=== PATIENT | female | born 1955 | race Caucasian/White ===

== ENCOUNTER → 2016-10-01 | Outpatient (CLI) | payer BC ==
--- NOTE | 2016-10-01 17:20 | CR ---
EXAMINATION: Lumbar spine HISTORY: Low back pain COMPARISON: None TECHNIQUE: AP, lateral, flexion and extension images FINDINGS: The lumbar spinal alignment appears grossly unremarkable. Mild disc space narrowing is not ed at L4-L5. Bone mineralization is normal. Marginal osteophytes are noted. The SI joints are symmet maria guadalupe. No fracture or acute osseous abdomen body. Position and alignment appear grossly unchanged with flexion and extension. IMPRESSION: Moderate degenerative changes noted within the lumbar spine without acute findings.
== END ==
LOC: MW.CHPM 14:29
PROVIDERS: ATTEND Anesthesiology
DX: M54.5 Low back pain (principal)
CPT/HCPCS: 72110; 72110-26

== ENCOUNTER → 2016-10-14 | Outpatient (CLI) | payer BC ==
--- NOTE | 2016-10-20 10:27 | US ---
EXAMINATION: NASRA HISTORY: Atherosclerotic heart disease COMPARISON: None TECHNIQUE: Pressures obtained in the upper and lower extremities bilaterally. FINDINGS/IMPRESSION: The left NASRA is 0.77. The right NASRA is 0.74.
== END ==
LOC: MW.US 12:42
PROVIDERS: ATTEND Internal Medicine
DX: I25.10 Atherosclerotic heart disease of native coronary artery without angina pectoris (principal)
CPT/HCPCS: 93922; 93922-26

== ENCOUNTER → 2016-11-05 | Outpatient (CLI) | payer BC ==
--- NOTE | 2016-11-06 13:04 | ECHO ---
EXAM DATE: 11/05/16 PATIENT'S AGE: 61 The echocardiogram report can be seen in this patient's EMR (Electronic Medical Record) in the Reports section. CHEN
== END ==
LOC: MW.US 12:48
PROVIDERS: ATTEND Internal Medicine
DX: I25.10 Atherosclerotic heart disease of native coronary artery without angina pectoris (principal)
CPT/HCPCS: 93306

== ENCOUNTER → 2016-11-10 | Outpatient (CLI) | payer BC ==
--- NOTE | 2016-11-10 07:25 | PCM.PRNOTE ---
- Free Text/Narrative Note: Lexiscan Indication chest pain CAD Patient was supervised today during infusion portion of the stress test. The patient received Regadenoson 0.4 mg IV and nuclear agent using standard protocol. Sestamibi Tm99 25 Mci was gievn afterwards Baseline blood pressure is 105/71 with a heart rate 58 EKG sinus rhythm significant q wave II III aVF without ST abnormalities Vital signs at injection: Peak blood pressure 138/68 with a heart rate of 74 Vital signs at 4 minutes post injection: Peak blood pressure 130/63 with a heart rate of 71 EKG sinus rhythm without further ST changes Patient complains of chest pain nausea spontaneously resolved Adverse effects from Génesis scan none Test done due to end of protocol Impression 1. electrocardiographically nondiagnostic for ischemia due to chemical protocol 2. nuclear imaging pending
--- NOTE | 2016-11-10 11:32 | NM ---
EXAMINATION: Nuclear medicine myocardial perfusion study HISTORY: Heart disease. PROCEDURE: Following intravenous administration of 0.4 mg of Lexiscan and 26.8 mCi of technetium 99m sestamib i, stress and rest SPECT images including gating imaging was performed. FINDINGS: Stress and rest myocardial SPECT images demonstrates mildly decreased uptake along the inferior wall . Review of gated images demonstrates normal wall motion, contractility and wall thickening. The left ventricular ejection fraction is 48 %. The left ventricular chamber size is normal. IMPRESSION: 1. Decreased uptake along the inferior wall to the apex. Correlate with rest imaging. 2. Normal ventricular chamber size and function with ejection fraction of 48 %.
== END ==
LOC: MW.NM 06:14
PROVIDERS: ATTEND Internal Medicine
DX: I25.10 Atherosclerotic heart disease of native coronary artery without angina pectoris (principal)
CPT/HCPCS: 78451; 93017; A9500; J2785

== ENCOUNTER 2016-11-19 11:47 | Emergency (ER) | payer BC ==
[2016-11-19 13:03] LABS: CHLORIDE,CL 99 mmol/L (98-110); SODIUM,NA 135 mmol/L (136-146)
--- NOTE | 2016-11-19 13:23 | EDM.PDOC ---
ED HPI GENERAL MEDICAL PROBLEM - General Chief Complaint: Fever Stated Complaint: FEVER OF 110 Time Seen by Provider: 11/19/16 12:21 Source of Information: Reports: Patient History Limitations: Reports: No Limitations - History of Present Illness INITIAL COMMENTS - FREE TEXT/NARRATIVE: History of present illness: [61-year-old female comes in complaining of a high temperature, exam pains, and excruciating abdominal pressure and pain that is radiating around her back. Patient indicated that her temperature at home was 110, but it was 37.3 upon arrival. Patient denies taking any ] Review of systems: As per history of present illness and below otherwise all systems reviewed and negative. Past medical history: As per history of present illness and as reviewed below otherwise noncontributory. Surgical history: As per history of present illness and as reviewed below otherwise noncontributory. Social history: No reported history of drug or alcohol abuse. Family history: As per history of present illness and as reviewed below otherwise noncontributory. Physical exam: HEENT: Atraumatic, normocephalic, pupils reactive, negative for conjunctival pallor or scleral icterus, mucous membranes moist, throat clear, neck supple, nontender, trachea midline. Lungs: Clear to auscultation, breath sounds equal bilaterally, chest nontender. Heart: S1S2, regular, negative for clicks, rubs, or JVD. Abdomen: Soft, nondistended, nontender. Negative for masses or hepatosplenomegaly. Negative for costovertebral tenderness. Pelvis: Stable nontender. Genitourinary: Deferred. Rectal: Deferred. Extremities: Atraumatic, negative for cords or calf pain. Neurovascular unremarkable. Neuro: Awake, alert, oriented. Cranial nerves II through XII unremarkable. Cerebellum unremarkable. Motor and sensory unremarkable throughout. Exam nonfocal. Diagnostics: [CBC, CMP, UA, urine hCG, CT of abdomen with contrast] Therapeutics: [IV fluid, Toradol, Zofran] Impression: [Viral] Plan: [otc meds time off work] Definitive disposition and diagnosis as appropriate pending reevaluation and review of above. Generalized Body Aches Pain Score (Numeric/FACES): 7 - Related Data Allergies Allergy/AdvReac Type Severity Reaction Status Date / Time levofloxacin [From Levaquin] Allergy Mild Rash Verified 11/19/16 11:55 Latex, Natural Rubber Allergy Rash Verified 11/19/16 11:55 penicillin Allergy Airway Verified 11/19/16 11:55 Tightness Home Meds: Home Meds Aspirin [Halfprin] 81 mg PO BEDTIME 01/14/15 [History] Metoprolol Tartrate [Lopressor] 12.5 mg PO Q12HR 01/14/15 [History] Prasugrel [Effient] 10 mg PO DAILY 01/14/15 [History] Rosuvastatin [Crestor] 40 mg PO BEDTIME 01/14/15 [History] Nitroglycerin 0.4 mg PO ASDIRECTED PRN 03/24/15 [History] Budesonide/Formoterol [Symbicort 160-4.5 MCG] 1 puff INH BID 07/10/15 [History] [place]-3/DHA/Epa/Fish Oil [Fish Oil 1,000 mg Softgel] 2,000 mg PO DAILY 07/24/16 [History] Albuterol/Ipratropium [DuoNeb 3.0-0.5 MG/3 ML] 3 ml NEB Q6HR PRN 30 Days [Rx] Fluticasone Propionate [Flonase] 1 gm NASBOTH BID #1 bottle 07/28/16 [Rx] Sodium Chloride 0.9% 3 ml INH Q6H PRN 30 Days 07/28/16 [Rx] Meloxicam 7.5 mg PO BID #30 tablet 11/19/16 [Rx] Promethazine HCl/Codeine [Prometh-Codein 6.25-10 mg/5 ml] 5 ml PO PRN 11/19/16 [ History] Past Medical History - Past Health History Medical/Surgical History: Denies Medical/Surgical History HEENT History: Reports: Impaired Vision Cardiovascular History: Reports: CAD, Heart Murmur, High Cholesterol, Hypertension, Stents Other Cardiovascular History: hx of MRSA Respiratory History: Reports: Bronchitis, Recurrent, COPD Gastrointestinal History: Reports: Diverticulosis, GERD, Other (See Below) Other Gastrointestinal History: Diverticulitis Genitourinary History: Reports: Urinary Incontinence Other Genitourinary History: bladder sling 2009 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: Musculoskeletal History: Reports: None Other Musculoskeletal History: 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, fracture left ankle, fractured left middle finger Neurological History: Reports: None Other Neuro History: AVM right temporal Psychiatric History: Reports: Anxiety Endocrine/Metabolic History: Reports: Other (See Below) Other Endocrine/Metabolic History: borderline diabetic Hematologic History: Reports: Anemia, Iron Deficiency Immunologic History: Reports: None Oncologic (Cancer) History: Reports: None Dermatologic History: Reports: None - Infectious Disease History Infectious Disease History: Reports: None - Past Surgical History Head Surgeries/Procedures: Reports: None HEENT Surgical History: Reports: None Cardiovascular Surgical History: Reports: Carotid Endarterectomy Respiratory Surgical History: Reports: None GI Surgical History: Reports: Appendectomy, Colostomy Female Surgical History: Reports: None Endocrine Surgical History: Reports: None Neurological Surgical History: Reports: None Musculoskeletal Surgical History: Reports: None Dermatological Surgical History: Reports: Plastic Surgical Reconstruction/Repair Social & Family History - Family History Family Medical History: Noncontributory HEENT: Reports: Glaucoma : Reports: Other (See Below) Other Family History: prostate cancer Neurological: Reports: CVA Endocrine/Metabolic: Reports: Diabetes, Type I Oncologic: Reports: Prostate, Skin - Tobacco Use Smoking Status *Q: Unknown Ever Smoked Years of Tobacco use: 40 Packs/Tins Daily: 0.5 Used Tobacco, but Quit: Yes Month Tobacco Last Used: 2012 Second Hand Smoke Exposure: No - Caffeine Use Caffeine Use: Reports: None Caffeine Use Comment: 1/2cup/day - Alcohol Use Days Per Week of Alcohol Use: 0 Number of Drinks Per Day: 2 Total Drinks Per Week: 0 - Recreational Drug Use Recreational Drug Use: No ED ROS GENERAL - Review of Systems Review Of Systems: See Below (History of present illness) ED EXAM, GENERAL - Physical Exam Exam: See Below (See history of present illness) Course - Vital Signs Last Recorded V/S: Last Vital Signs Temp 37.3 C 11/19/16 11:56 Pulse 78 11/19/16 11:56 Resp 16 11/19/16 11:56 BP 138/76 11/19/16 11:56 Pulse Ox 93 L 11/19/16 11:56 - Orders/Labs/Meds Labs: Laboratory Tests 11/19/16 11/19/16 11/19/16 Range/Units 12:00 12:19 12:19 WBC 5.75 (4.0-11.0) K/uL RBC 5.48 (4.30-5.90) M/uL Hgb 16.7 H (12.0-16.0) g/dL Hct 50.4 H (36.0-46.0) % MCV 92.0 (80.0-98.0) fL MCH 30.5 (27.0-32.0) pg MCHC 33.1 (31.0-37.0) g/dL RDW Std Deviation 47.0 (28.0-62.0) fl RDW Coeff of [place] 14 (11.0-15.0) % Plt Count 160 (150-400) K/uL MPV 10.50 (7.40-12.00) fL Add Manual Diff YES Neutrophils % (Manual) 65 (48.0-80.0) % Band Neutrophils % 1 % Lymphocytes % (Manual) 26 (16.0-40.0) % Monocytes % (Manual) 8 (0.0-15.0) % Nucleated RBC % 0.0 /100WBC Absolute Seg Neuts 3.7 Band Neutrophils # 0.1 Lymphocytes # (Manual) 1.5 Monocytes # (Manual) 0.5 Nucleated RBCs # 0 K/uL Sodium 135 L (136-146) mmol/L Potassium 4.2 (3.5-5.1) mmol/L Chloride 99 (98-110) mmol/L Carbon Dioxide 26 (21-31) mmol/L BUN 8 (6.0-23.0) mg/dL Creatinine 0.8 (0.6-1.5) mg/dL Est Cr Clr Drug Dosing 61.09 mL/min Estimated GFR (MDRD) > 60.0 ml/min Glucose 101 (60-110) mg/dL Calcium 9.6 (8.8-10.8) mg/dL Total Bilirubin 0.5 (0.1-1.5) mg/dL AST 45 H (5-40) IU/L ALT 40 (8-54) IU/L Alkaline Phosphatase 96 (40-150) Total Protein 7.6 (6.0-8.0) g/dL Albumin 4.6 (3.4-4.8) g/dL Globulin 3.0 (2.0-3.5) g/dL Albumin/Globulin Ratio 1.5 (1.3-2.8) Urine Color YELLOW Urine Appearance CLEAR Urine pH 6.0 (5.0-8.0) Ur Specific R[place] <= 1.005 (1.001-1.035) Urine Protein NEGATIVE (NEGATIVE) mg/dL Urine Glucose (UA) NEGATIVE (NEGATIVE) mg/dL Urine Ketones NEGATIVE (NEGATIVE) mg/dL Urine Occult Blood NEGATIVE (NEGATIVE) Urine Nitrite NEGATIVE (NEGATIVE) Urine Bilirubin NEGATIVE (NEGATIVE) Urine Urobilinogen 0.2 (<2.0) EU/dL Ur Leukocyte Esterase NEGATIVE (NEGATIVE) Urine RBC 0-1 (0-2/HPF) Urine WBC 0-1 (0-5/HPF) Ur Epithelial Cells FEW (NONE-FEW) Urine Bacteria 1+ H (NEGATIVE) Meds: Medications Discontinued Medications Generic Name Dose Route Start Last Admin Trade Name Freq PRN Reason Stop Dose Admin Sodium Chloride 1,000 mls @ 999 mls/hr 11/19/16 13:40 11/19/16 13:48 Normal Saline IV 11/19/16 14:40 999 mls/hr STAT ONE Administration Iopamidol 100 ml 11/19/16 13:59 11/19/16 14:01 Isovue Multipack-370 (76%) IVPUSH 11/19/16 14:00 100 ml ONETIME STA Administration Ondansetron HCl 4 mg 11/19/16 13:40 11/19/16 13:48 Zofran IVPUSH 11/19/16 13:41 4 mg ONETIME ONE Administration Ondansetron HCl Confirm 11/19/16 13:43 11/19/16 13:49 Zofran Administered 11/19/16 13:44 Not Given Dose 4 mg .ROUTE .STK-MED ONE Departure - Departure Time of Disposition: 15:11 Disposition: Home, Self-Care 01 Condition: good Clinical Impression: Viral syndrome - Discharge Information Prescriptions: Meloxicam 7.5 mg PO BID #30 tablet Forms: ED Department Discharge Additional Instructions: The following information is given to patients seen in the emergency department who are being discharged to home. This information is to outline your options for follow-up care. We provide all patients seen in our emergency department with a follow-up referral. The need for follow-up, as well as the timing and circumstances, are variable depending upon the specifics of your emergency department visit. If you don't have a primary care physician on staff, we will provide you with a referral. We always advise you to contact your personal physician following an emergency department visit to inform them of the circumstance of the visit and for follow-up with them and/or the need for any referrals to a consulting specialist. The emergency department will also refer you to a specialist when appropriate. This referral assures that you have the opportunity for follow-up care with a specialist. All of these measure are taken in an effort to provide you with optimal care, which includes your follow-up. Under all circumstances we always encourage you to contact your private physician who remains a resource for coordinating your care. When calling for follow-up care, please make the office aware that this follow-up is from your recent emergency room visit. If for any reason you are refused follow-up, please contact the [facility] Emergency Department at and asked to speak to the emergency department charge nurse. Medication as directed Take time off work as directed Followup with primary care in one to 2 days Return to ED as needed as discussed
[2016-11-19] MEDS ORDERED: Sodium Chloride 0.9% 1,000 ML IV ONE (13:40)
[2016-11-19] MEDS ORDERED: Ondansetron 4 MG/2 ML SDV IVPUSH ONE (13:40)
[2016-11-19] MEDS ORDERED: Ondansetron 4 MG/2 ML SDV ONE (13:43)
[2016-11-19] MEDS ORDERED: Iopamidol 755 MG/ML 500 ML Multipack Bottle IVPUSH STA (13:59)
--- NOTE | 2016-11-19 14:50 | CT ---
CT of the abdomen and pelvis with contrast. HISTORY: Pain TECHNIQUE: Axial CT images were obtained of the abdomen and pelvis following administration of 100 m L of Isovue-370 in the right antecubital fossa without complication. Coronal and sagittal reconstruc tions obtained. FINDINGS: The lung bases are clear, no pleural effusion. Mild dependent atelectasis. There is a tiny cyst near the dome of the liver. The gallbladder, adrenal glands, and pancreas appea r grossly unremarkable. Splenic granulomata are noted. No bulky retroperitoneal lymphadenopathy or a bdominal ascites. The kidneys enhance and function symmetrically without evidence of obstructive uropathy. Mild vascul ar calcifications are present. The visualized large and small bowel are normal in caliber without evidence of obstruction. There is a left abdominal colostomy noted. The rectal pouch is unremarkable. There is a large broad-based ve ntral abdominal hernia versus diastases. There were several small areas of fat necrosis near the col ostomy site and anterior to the proximal jejunum. The urinary bladder is normal. No bulky retroperit obrien lymphadenopathy or abdominal ascites. No suspicious osseous abnormalities identified. IMPRESSION: 1. No acute findings demonstrated within the abdomen or pelvis. 2. Postsurgical changes noted with a left abdominal colostomy. 3. Broad-based ventral abdominal hernia containing bowel, however likely representing diastases of t he abdominal musculature. 4. Moderate vascular calcifications.
[2016-11-19 15:19] VITALS: BP 125/58
== END 2016-11-19 15:18 | disposition home or self-care (01) ==
LOC: MW.ED 11:47
DX: B34.9 Viral infection, unspecified (principal); I10 Essential (primary) hypertension; I25.10 Atherosclerotic heart disease of native coronary artery without angina pectoris; E78.00 Pure hypercholesterolemia, unspecified; J44.9 Chronic obstructive pulmonary disease, unspecified; K21.9 Gastro-esophageal reflux disease without esophagitis; F41.9 Anxiety disorder, unspecified; Z79.82 Long term (current) use of aspirin; Z79.899 Other long term (current) drug therapy; Z88.0 Allergy status to penicillin; Z88.1 Allergy status to other antibiotic agents; Z91.040 Latex allergy status; Z90.49 Acquired absence of other specified parts of digestive tract; Z98.890 Other specified postprocedural states
CPT/HCPCS: 36415; 74177; 80053; 81001; 85025; 96361; 96374; 99284; J2405; J7040; Q9967

== ENCOUNTER 2016-12-01 15:24 | Inpatient (IN) | payer BC ==
[2016-12-01] MEDS ORDERED: Sodium Chloride 0.9% 1,000 ML IV ONE ×2 (15:55→17:29)
[2016-12-01] MEDS ORDERED: Ondansetron 4 MG/2 ML SDV IVPUSH ONE (15:55)
--- NOTE | 2016-12-01 16:40 | EDM.PDOC ---
<Sonia East - Last Filed: 12/01/16 18:21> ED HPI GENERAL MEDICAL PROBLEM - General Chief Complaint: Abdominal Pain Stated Complaint: ABDOMINAL PAIN Time Seen by Provider: 12/01/16 15:43 Source of Information: Reports: Patient History Limitations: Reports: No Limitations - History of Present Illness INITIAL COMMENTS - FREE TEXT/NARRATIVE: History of present illness: []Patient has a history of diverticulitis and has a functioning colostomy. She started developing abdominal pain last night with fevers and nausea and vomiting. She has similar episode 2 weeks ago where she was worked up in the ED but she states this does not feel the same. Her pain today is a pressure squeezing in her lower abdomen that is nonradiating. She states when she stands up she feels like her belly is very bloated she lays down it feels crampy. It does not radiate to her back and she states she has been urinating more than normal but does not have pain with urination also admits to drinking a lot more than normal. Review of systems: As per history of present illness and below otherwise all systems reviewed and negative. Past medical history: As per history of present illness and as reviewed below otherwise noncontributory. Surgical history: As per history of present illness and as reviewed below otherwise noncontributory. Social history: No reported history of drug or alcohol abuse. Family history: As per history of present illness and as reviewed below otherwise noncontributory. Physical exam: General: Well developed, well nourished in NAD HEENT: Atraumatic, normocephalic, pupils reactive, negative for conjunctival pallor or scleral icterus, mucous membranes moist, throat clear, neck supple, nontender, trachea midline. Lungs: Clear to auscultation, breath sounds equal bilaterally, chest nontender. Heart: S1S2, regular, negative for clicks, rubs, or JVD. Abdomen: Soft, nondistended, tender in lower abdomen without rebound or guarding. Colostomy bag with air and small amount of stool. present Negative for masses or hepatosplenomegaly. Negative for costovertebral tenderness. Pelvis: Stable nontender. Genitourinary: Deferred. Rectal: Deferred. Extremities: Atraumatic, negative for cords or calf pain. Neurovascular unremarkable. Neuro: Awake, alert, oriented. Cranial nerves II through XII unremarkable. Cerebellum unremarkable. Motor and sensory unremarkable throughout. Exam nonfocal. Diagnostics: []CBC chemistry UA CT abdomen repeated due to the elevated WBC count and report of different type of pain. CT results pending and will be checked by Jones Rose. Therapeutics: []Patient was hydrated and given morphine which she had a reaction of hives on her arms above the IV. She was then given Toradol. Impression: []Abdominal pain Plan: []Disposition per Jones Rose. Definitive disposition and diagnosis as appropriate pending reevaluation and review of above. abdomen Pain Score (Numeric/FACES): 9 - Related Data Allergies Allergy/AdvReac Type Severity Reaction Status Date / Time levofloxacin [From Levaquin] Allergy Mild Rash Verified 12/01/16 15:48 Latex, Natural Rubber Allergy Rash Verified 12/01/16 15:48 penicillin Allergy Airway Verified 12/01/16 15:48 Tightness Home Meds: Home Meds Aspirin [Halfprin] 81 mg PO BEDTIME 01/14/15 [History] Metoprolol Tartrate [Lopressor] 12.5 mg PO Q12HR 01/14/15 [History] Prasugrel [Effient] 10 mg PO DAILY 01/14/15 [History] Rosuvastatin [Crestor] 40 mg PO BEDTIME 01/14/15 [History] Nitroglycerin 0.4 mg PO ASDIRECTED PRN 03/24/15 [History] Budesonide/Formoterol [Symbicort 160-4.5 MCG] 1 puff INH BID 07/10/15 [History] [place]-3/DHA/Epa/Fish Oil [Fish Oil 1,000 mg Softgel] 2,000 mg PO DAILY 07/24/16 [History] Albuterol/Ipratropium [DuoNeb 3.0-0.5 MG/3 ML] 3 ml NEB Q6HR PRN 30 Days [Rx] Fluticasone Propionate [Flonase] 1 gm NASBOTH BID #1 bottle 07/28/16 [Rx] Sodium Chloride 0.9% 3 ml INH Q6H PRN 30 Days 07/28/16 [Rx] Meloxicam 7.5 mg PO BID #30 tablet 11/19/16 [Rx] Promethazine HCl/Codeine [Prometh-Codein 6.25-10 mg/5 ml] 5 ml PO PRN 11/19/16 [ History] Past Medical History - Past Health History Medical/Surgical History: Denies Medical/Surgical History HEENT History: Reports: Impaired Vision Cardiovascular History: Reports: CAD, Heart Murmur, High Cholesterol, Hypertension, Stents Other Cardiovascular History: hx of MRSA Respiratory History: Reports: Bronchitis, Recurrent, COPD Gastrointestinal History: Reports: Diverticulosis, GERD, Other (See Below) Other Gastrointestinal History: Diverticulitis Genitourinary History: Reports: Urinary Incontinence Other Genitourinary History: bladder sling 2009 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: Musculoskeletal History: Reports: None Other Musculoskeletal History: 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, fracture left ankle, fractured left middle finger Neurological History: Reports: None Other Neuro History: AVM right temporal Psychiatric History: Reports: Anxiety Endocrine/Metabolic History: Reports: Other (See Below) Other Endocrine/Metabolic History: borderline diabetic Hematologic History: Reports: Anemia, Iron Deficiency Immunologic History: Reports: None Oncologic (Cancer) History: Reports: None Dermatologic History: Reports: None - Infectious Disease History Infectious Disease History: Reports: Chicken Pox, Measles, MRSA - Past Surgical History Head Surgeries/Procedures: Reports: None HEENT Surgical History: Reports: None Cardiovascular Surgical History: Reports: Carotid Endarterectomy Respiratory Surgical History: Reports: None GI Surgical History: Reports: Appendectomy, Colostomy Female Surgical History: Reports: None Endocrine Surgical History: Reports: None Neurological Surgical History: Reports: None Musculoskeletal Surgical History: Reports: None Dermatological Surgical History: Reports: Plastic Surgical Reconstruction/Repair Social & Family History - Family History Family Medical History: Noncontributory HEENT: Reports: Glaucoma : Reports: Other (See Below) Other Family History: prostate cancer Neurological: Reports: CVA Endocrine/Metabolic: Reports: Diabetes, Type I Oncologic: Reports: Prostate, Skin - Tobacco Use Smoking Status *Q: Never Smoker Years of Tobacco use: 40 Packs/Tins Daily: 0.5 Used Tobacco, but Quit: Yes Month Tobacco Last Used: 2012 Second Hand Smoke Exposure: No - Caffeine Use Caffeine Use: Reports: Coffee Caffeine Use Comment: 1 cup daily - Alcohol Use Days Per Week of Alcohol Use: 0 Number of Drinks Per Day: 2 Total Drinks Per Week: 0 - Recreational Drug Use Recreational Drug Use: No ED ROS GENERAL - Review of Systems Review Of Systems: See Below (See history of present illness) ED EXAM, GI/ABD - Physical Exam Exam: See Below (See history of present illness) Course - Vital Signs Last Recorded V/S: Last Vital Signs Temp 36.7 C 12/01/16 19:30 Pulse 78 12/01/16 19:30 Resp 18 12/01/16 19:30 BP 105/56 L 12/01/16 19:30 Pulse Ox 92 L 12/01/16 19:30 - Orders/Labs/Meds Orders: Active Orders 24 hr Category Date Time Status Patient Status [ADT] Stat ADT 12/01/16 19:55 Ordered Abdomen Pelvis w Cont [CT] Stat Exams 12/01/16 16:57 Taken CULTURE BLOOD [BC] Stat Lab 12/01/16 19:53 Ordered CULTURE BLOOD [BC] Stat Lab 12/01/16 19:53 Ordered Azithromycin [Zithromax] 1,000 mg Med 12/01/16 19:53 Active Sodium Chloride 0.9% [Normal Saline] 500 ml IV ONETIME cefTRIAXone [Rocephin in Dextrose,Iso-Osm 1 GM/50 ML] 1 Med 12/01/16 19:53 Active gm Premix Bag 1 bag IV ONETIME Blood Culture x2 Reflex Set [OM.PC] Stat Oth 12/01/16 19:53 Ordered Saline Lock Insert [OM.PC] Stat Oth 12/01/16 15:55 Ordered Medication Orders Azithromycin 1,000 mg/ Sodium (Chloride) 500 mls @ 250 mls/hr IV ONETIME ONE Stop: 12/01/16 21:52 Ceftriaxone Sodium/Dextrose 1 (gm/ Premix) 50 mls @ 100 mls/hr IV ONETIME ONE Stop: 12/01/16 20:22 Labs: Laboratory Tests 12/01/16 12/01/16 12/01/16 Range/Units 16:16 16:16 16:20 WBC 14.55 H (4.0-11.0) K/uL RBC 5.09 (4.30-5.90) M/uL Hgb 16.0 (12.0-16.0) g/dL Hct 46.7 H (36.0-46.0) % MCV 91.7 (80.0-98.0) fL MCH 31.4 (27.0-32.0) pg MCHC 34.3 (31.0-37.0) g/dL RDW Std Deviation 45.5 (28.0-62.0) fl RDW Coeff of [place] 14 (11.0-15.0) % Plt Count 297 (150-400) K/uL MPV 9.80 (7.40-12.00) fL Add Manual Diff YES Neutrophils % (Manual) 68 (48.0-80.0) % Band Neutrophils % 11 % Lymphocytes % (Manual) 17 (16.0-40.0) % Monocytes % (Manual) 4 (0.0-15.0) % Nucleated RBC % 0.0 /100WBC Absolute Seg Neuts 9.9 Band Neutrophils # 1.6 Lymphocytes # (Manual) 2.5 Monocytes # (Manual) 0.6 Nucleated RBCs # 0 K/uL Sodium 135 L (136-146) mmol/L Potassium 3.8 (3.5-5.1) mmol/L Chloride 101 (98-110) mmol/L Carbon Dioxide 23 (21-31) mmol/L BUN 9 (6.0-23.0) mg/dL Creatinine 0.7 (0.6-1.5) mg/dL Est Cr Clr Drug Dosing 69.81 mL/min Estimated GFR (MDRD) > 60.0 ml/min Glucose 146 H (60-110) mg/dL Calcium 9.4 (8.8-10.8) mg/dL Total Bilirubin 0.7 (0.1-1.5) mg/dL AST 15 (5-40) IU/L ALT 22 (8-54) IU/L Alkaline Phosphatase 76 (40-150) Total Protein 7.3 (6.0-8.0) g/dL Albumin 3.9 (3.4-4.8) g/dL Globulin 3.4 (2.0-3.5) g/dL Albumin/Globulin Ratio 1.2 L (1.3-2.8) Lipase 29 (7-80) U/L Urine Color YELLOW Urine Appearance CLEAR Urine pH 5.5 (5.0-8.0) Ur Specific [place] 1.015 (1.001-1.035) Urine Protein NEGATIVE (NEGATIVE) mg/dL Urine Glucose (UA) NEGATIVE (NEGATIVE) mg/dL Urine Ketones NEGATIVE (NEGATIVE) mg/dL Urine Occult Blood NEGATIVE (NEGATIVE) Urine Nitrite NEGATIVE (NEGATIVE) Urine Bilirubin NEGATIVE (NEGATIVE) Urine Urobilinogen 0.2 (<2.0) EU/dL Ur Leukocyte Esterase NEGATIVE (NEGATIVE) Urine RBC 0-1 (0-2/HPF) Urine WBC 0-3 (0-5/HPF) Ur Epithelial Cells FEW (NONE-FEW) Urine Bacteria FEW (NEGATIVE) Urine Mucus LIGHT (NONE-MOD) Meds: Medications Generic Name Dose Route Start Last Admin Trade Name Freq PRN Reason Stop Dose Admin Azithromycin 1,000 mg/ Sodium 500 mls @ 250 mls/hr 12/01/16 19:53 Chloride IV 12/01/16 21:52 ONETIME ONE Ceftriaxone Sodium/Dextrose 1 50 mls @ 100 mls/hr 12/01/16 19:53 gm/ Premix IV 12/01/16 20:22 ONETIME ONE Discontinued Medications Generic Name Dose Route Start Last Admin Trade Name Freq PRN Reason Stop Dose Admin Diphenhydramine HCl Confirm 12/01/16 17:27 12/01/16 18:33 Benadryl Administered 12/01/16 17:28 Not Given Dose 50 mg .ROUTE .STK-MED ONE Diphenhydramine HCl 25 mg 12/01/16 17:29 12/01/16 17:29 Benadryl IVPUSH 12/01/16 17:30 25 mg ONETIME ONE Administration Sodium Chloride 1,000 mls @ 999 mls/hr 12/01/16 15:55 12/01/16 16:18 Normal Saline IV 12/01/16 16:55 999 mls/hr .Bolus ONE Administration Sodium Chloride 1,000 mls @ 999 mls/hr 12/01/16 17:29 12/01/16 17:40 Normal Saline IV 12/01/16 18:29 999 mls/hr .Bolus ONE Administration Iopamidol 100 ml 12/01/16 17:06 Isovue Multipack-370 (76%) IVPUSH 12/01/16 17:07 ONETIME STA Ketorolac Tromethamine 30 mg 12/01/16 18:20 12/01/16 18:31 Toradol IVPUSH 12/01/16 18:21 30 mg ONETIME ONE Administration Morphine Sulfate 4 mg 12/01/16 16:41 12/01/16 17:06 Morphine IVPUSH 12/01/16 16:42 Not Given ONETIME ONE Morphine Sulfate 4 mg 12/01/16 17:00 12/01/16 17:07 Morphine IVPUSH 12/01/16 17:01 4 mg ONETIME ONE Administration Ondansetron HCl 4 mg 12/01/16 15:55 12/01/16 16:17 Zofran IVPUSH 12/01/16 15:56 4 mg ONETIME ONE Administration Departure - Departure Time of Disposition: 18:42 Disposition: Admitted As Inpatient 66 Condition: good Clinical Impression: Leukocytosis, unspecified Abdominal pain Qualifiers: Abdominal location: periumbilical Qualified Code(s): R10.33 - Periumbilical pain - Discharge Information Referrals: PCP,None [Primary Care Provider] - Forms: ED Department Discharge - My Orders Last 24 Hours: My Active Orders 12/01/16 19:53 CULTURE BLOOD [BC] Stat CULTURE BLOOD [BC] Stat Azithromycin [Zithromax] 1,000 mg Sodium Chloride 0.9% [Normal Saline] 500 ml IV ONETIME cefTRIAXone [Rocephin in Dextrose,Iso-Osm 1 GM/50 ML] 1 gm Premix Bag 1 bag IV ONETIME Blood Culture x2 Reflex Set [OM.PC] Stat 12/01/16 19:55 Patient Status [ADT] Stat - Assessment/Plan Last 24 Hours: My Active Orders 12/01/16 19:53 CULTURE BLOOD [BC] Stat CULTURE BLOOD [BC] Stat Azithromycin [Zithromax] 1,000 mg Sodium Chloride 0.9% [Normal Saline] 500 ml IV ONETIME cefTRIAXone [Rocephin in Dextrose,Iso-Osm 1 GM/50 ML] 1 gm Premix Bag 1 bag IV ONETIME Blood Culture x2 Reflex Set [OM.PC] Stat 12/01/16 19:55 Patient Status [ADT] Stat <Jones Rose - Last Filed: 12/01/16 20:00> ED HPI GENERAL MEDICAL PROBLEM - History of Present Illness INITIAL COMMENTS - FREE TEXT/NARRATIVE: Patient CT indicating some possible right lower lobe pneumonia. Patient also has established leukocytosis. Spoke with Dr. Gee Gallardo and decision was made to admit patient to inpatient status for treatment of leukocytosis, dehydration , and possible evolving pneumonia. abdomen Pain Score (Numeric/FACES): 9 RLQ Pain Score (Numeric/FACES): 3
[2016-12-01] MEDS ORDERED: Morphine 2 MG/ML Syringe IVPUSH ONE (16:41)
[2016-12-01 17:00] LABS: CHLORIDE,CL 101 mmol/L (98-110); SODIUM,NA 135 mmol/L (136-146)
[2016-12-01] MEDS ORDERED: Morphine 4 MG/ML Syringe IVPUSH ONE (17:00)
[2016-12-01] MEDS ORDERED: Iopamidol 755 MG/ML 500 ML Multipack Bottle IVPUSH STA (17:06)
[2016-12-01] MEDS ORDERED: diphenhydrAMINE 50 MG/ML SDV ONE (17:27)
[2016-12-01] MEDS ORDERED: diphenhydrAMINE 50 MG/ML SDV IVPUSH ONE (17:29)
[2016-12-01] MEDS ORDERED: Ketorolac 30 MG/ML SDV IVPUSH ONE (18:20)
[2016-12-01] MEDS ORDERED: cefTRIAXone 1 GM in Premix Bag 1 BAG IV ONE (19:53)
[2016-12-01] MEDS ORDERED: Azithromycin 1,000 MG in Sodium Chloride 0.9% 500 ML IV ONE (19:53)
[2016-12-01] MEDS ORDERED: Albuterol/Ipratropium 3.0-0.5 MG/3 ML Neb Soln NEB PRN ×2 (21:43→22:54)
[2016-12-01] MEDS ORDERED: Acetaminophen 325 MG Tab PO PRN (21:43)
[2016-12-01] MEDS ORDERED: Azithromycin 500 MG in Sodium Chloride 0.9% 250 ML IV SCH (22:00)
[2016-12-01] MEDS: Sodium Chloride 0.9% 1,000 ML IV SCH (22:01)
[2016-12-01] MEDS: Azithromycin 500 MG in Sodium Chloride 0.9% 250 ML IV SCH (22:33)
[2016-12-01] MEDS ORDERED: Sodium Chloride 0.9% Inhalation Soln 3 ML Neb INH PRN (22:54)
--- NOTE | 2016-12-01 23:00 | PCM.HP ---
H&P History of Present Illness - History of Present Illness Initial Comments - Free Text/Narative: 61 yo female with pmh of CAD, COPD and diverticulosis s/p bowel resection with colostomy. Over the past two weeks she has not been feeling well. She reports sinus and chest congestion, fevers and chills. She report lower abdominal pain and nausea but denies any diarrhea. She was seen in clinic and prescribed doxycycline and prednisone. She reports to the ED today because symptoms have not been improving. She had a CT scan of abdomen which reported new subtle stranding about the infrarenal abdominal aorta and new subcentimeter nodular opacities at the right lung base. abdomen Pain Score (Numeric/FACES): 9 RLQ Pain Score (Numeric/FACES): 3 - Related Data Allergies/Adverse Reactions: Allergies Allergy/AdvReac Type Severity Reaction Status Date / Time levofloxacin [From Levaquin] Allergy Mild Rash Verified 12/01/16 20:05 Latex, Natural Rubber Allergy Rash Verified 12/01/16 20:05 penicillin Allergy Airway Verified 12/01/16 20:05 Tightness morphin Allergy Severe Hives Uncoded 12/01/16 20:05 Home Medications: Home Meds Aspirin [Halfprin] 81 mg PO BEDTIME 01/14/15 [History] Metoprolol Tartrate [Lopressor] 25 mg PO Q12HR 01/14/15 [History] Prasugrel [Effient] 10 mg PO DAILY 01/14/15 [History] Rosuvastatin [Crestor] 40 mg PO BEDTIME 01/14/15 [History] Nitroglycerin 0.4 mg PO ASDIRECTED PRN 03/24/15 [History] Budesonide/Formoterol [Symbicort 160-4.5 MCG] 2 puff INH BID 07/10/15 [History] [place]-3/DHA/Epa/Fish Oil [Fish Oil 1,000 mg Softgel] 2,000 mg PO BID 07/24/16 [ History] Albuterol/Ipratropium [DuoNeb 3.0-0.5 MG/3 ML] 3 ml NEB Q6HR PRN 30 Days [Rx] Sodium Chloride 0.9% 3 ml INH Q6H PRN 30 Days 07/28/16 [Rx] Fluticasone Propionate [Flonase] 1 gm NASBOTH DAILY 12/01/16 [History] ALPRAZolam [Alprazolam] 0.5 mg PO BEDTIME PRN 12/02/16 [History] Losartan Potassium 25 mg PO DAILY 12/02/16 [History] Tiotropium [place] [Spiriva Respimat] 2.5 mcg IH DAILY 12/02/16 [History] Past Medical History - Past Health History Medical/Surgical History: Denies Medical/Surgical History HEENT History: Reports: Impaired Vision Cardiovascular History: Reports: CAD, Heart Murmur, High Cholesterol, Hypertension, Stents Other Cardiovascular History: hx of MRSA Respiratory History: Reports: Bronchitis, Recurrent, COPD Gastrointestinal History: Reports: Diverticulosis, GERD, Other (See Below) Other Gastrointestinal History: Diverticulitis Genitourinary History: Reports: Urinary Incontinence Other Genitourinary History: 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: Musculoskeletal History: Reports: None Other Musculoskeletal History: 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, fracture left ankle, fractured left middle finger Neurological History: Reports: None Other Neuro History: AVM right temporal Psychiatric History: Reports: Anxiety Endocrine/Metabolic History: Reports: Other (See Below) Other Endocrine/Metabolic History: borderline diabetic Hematologic History: Reports: Anemia, Iron Deficiency Immunologic History: Reports: None Oncologic (Cancer) History: Reports: None Dermatologic History: Reports: None - Infectious Disease History Infectious Disease History: Reports: Chicken Pox, Measles, MRSA - Past Surgical History Head Surgeries/Procedures: Reports: None HEENT Surgical History: Reports: None Cardiovascular Surgical History: Reports: Carotid Endarterectomy Respiratory Surgical History: Reports: None GI Surgical History: Reports: Appendectomy, Colostomy Female Surgical History: Reports: None Endocrine Surgical History: Reports: None Neurological Surgical History: Reports: None Musculoskeletal Surgical History: Reports: None Dermatological Surgical History: Reports: Plastic Surgical Reconstruction/Repair Social & Family History - Family History Family Medical History: Noncontributory HEENT: Reports: Glaucoma : Reports: Other (See Below) Other Family History: prostate cancer Neurological: Reports: CVA Endocrine/Metabolic: Reports: Diabetes, Type I Oncologic: Reports: Prostate, Skin - Tobacco Use Smoking Status *Q: Former Smoker Years of Tobacco use: 40 Packs/Tins Daily: 0.5 Used Tobacco, but Quit: Yes Month Tobacco Last Used: 2012 Second Hand Smoke Exposure: Yes - Caffeine Use Caffeine Use: Reports: Coffee Caffeine Use Comment: 1 cup daily - Alcohol Use Days Per Week of Alcohol Use: 2 Number of Drinks Per Day: 0 Total Drinks Per Week: 0 - Recreational Drug Use Recreational Drug Use: No H&P Review of Systems - Review of Systems: Review Of Systems: ROS reveals no pertinent complaints other than HPI. Exam - Exam Exam: See Below - Vital Signs Vital Signs: Last Vital Signs Temp 36.6 C 12/01/16 21:00 Pulse 71 12/01/16 21:00 Resp 18 12/01/16 21:00 BP 110/56 L 12/01/16 21:00 Pulse Ox 92 L 12/01/16 21:00 Weight: 76 kg - Exam General: Alert, Oriented, 4 HEENT: Mucosa Moist & Sentinel Lungs: Clear to Auscultation, Normal Respiratory Effort. No: Rhonchi, Wheezing Cardiovascular: Regular Rate, Regular Rhythm Abdomen: Soft, Tenderness (suprapubic) Extremities: Normal Inspection Skin: Warm, Dry, Intact - Patient Data Result Diagrams: 12/02/16 04:15 12/02/16 04:15 *Q Meaningful Use (ADM) - VTE *Q VTE Criteria *Q: - Stroke *Q Stroke Criteria *Q: - AMI *Q AMI Criteria *Q: Problem List Initiated/Reviewed/Updated: Yes Orders Last 24hrs: Active Orders 24 hr Category Date Time Status RT Aerosol Therapy [RC] ASDIRECTED Care 12/01/16 21:45 Active Nothing Per Oral Diet [DIET] Diet 12/01/16 Breakfast Active BASIC METABOLIC PANEL,BMP [CHEM] Routine Lab 12/02/16 05:00 Ordered CBC WITH AUTO DIFF [HEME] Routine Lab 12/02/16 05:00 Ordered LACTIC ACID,WHOLE BLOOD [BG] Routine Lab 12/01/16 22:53 Ordered Acetaminophen [Tylenol] Med 12/01/16 21:43 Active 650 mg PO Q4H PRN Albuterol/Ipratropium [DuoNeb 3.0-0.5 MG/3 ML] Med 12/01/16 22:54 Ordered 3 ml NEB Q6HR PRN Albuterol/Ipratropium [DuoNeb 3.0-0.5 MG/3 ML] Med 12/01/16 21:43 Active 3 ml NEB Q6HRRT PRN Aspirin [Halfprin] Med 12/02/16 21:00 Ordered 81 mg PO BEDTIME Azithromycin [Zithromax] 500 mg Med 12/01/16 22:20 Active Sodium Chloride 0.9% [Normal Saline] 250 ml IV Q24H Budesonide/Formoterol Med 12/02/16 09:00 Ordered 1 puff INH DAILY Fluticasone Propionate [Flonase] Med 12/02/16 09:00 Ordered 1 gm NASBOTH DAILY Prasugrel [Effient] Med 12/02/16 09:00 Ordered 10 mg PO DAILY Rosuvastatin [Crestor] Med 12/02/16 21:00 Ordered 40 mg PO BEDTIME Sodium Chloride 0.9% Med 12/01/16 22:54 Ordered 3 ml INH Q6H PRN Sodium Chloride 0.9% [Normal Saline] 1,000 ml Med 12/01/16 21:45 Active IV ASDIRECTED cefTRIAXone [Rocephin in Dextrose,Iso-Osm 1 GM/50 ML] 1 Med 12/02/16 21:00 Active gm Premix Bag 1 bag IV Q24H Medication Orders Acetaminophen (Tylenol) 650 mg PO Q4H PRN PRN Reason: Pain Last Admin: 12/01/16 22:12 Dose: 650 mg Albuterol/Ipratropium (Duoneb 3.0-0.5 Mg/3 Ml) 3 ml NEB Q6HRRT PRN PRN Reason: Shortness of Breath Sodium Chloride (Normal Saline) 1,000 mls @ 125 mls/hr IV ASDIRECTED JENNIFER Last Admin: 12/01/16 22:01 Dose: 125 mls/hr Ceftriaxone Sodium/Dextrose 1 (gm/ Premix) 50 mls @ 100 mls/hr IV Q24H JENNIFER Azithromycin 500 mg/ Sodium (Chloride) 250 mls @ 250 mls/hr IV Q24H JENNIFER Last Admin: 12/01/16 22:33 Dose: 250 mls/hr Non-Formulary Medication (Prasugrel [Effient]) 10 mg PO DAILY JENNIFER Non-Formulary Medication (Rosuvastatin [Crestor]) 40 mg PO BEDTIME JENNIFER Non-Formulary Medication (Budesonide/Formoterol) 1 puff INH DAILY JENNIFER Assessment/Plan Comment:: 61 yo female who presents with subjective fever, cough and abdominal pain. CT abdomen suggestive of pneumonia and subtle stranding about the infrarenal abdominal aorta. We will treat with rocephin and azithromycin. Due to history of MRSA will also give vancomycin. Cultures of blood sputum and urine are ordered.
[2016-12-02] MEDS: HYDROmorphone 1 MG/ML Syringe IVPUSH PRN ×5 (00:12→20:40)
[2016-12-02 04:45] LABS: CHLORIDE,CL 109 mmol/L (98-110); SODIUM,NA 139 mmol/L (136-146)
[2016-12-02] MEDS: EFFIENT 10 MG PO SCH ×2 (08:39→11:28)
[2016-12-02] MEDS: Fluticasone Propionate Nasal Spray 16 GM Bottle NASBOTH SCH (08:39)
[2016-12-02] MEDS: SYMBICORT 160/4.5 INH SCH ×2 (08:39→11:28)
[2016-12-02] MEDS: Enoxaparin 40 MG/0.4 ML Syringe SUBCUT SCH (08:40)
[2016-12-02] MEDS: Sodium Chloride 0.9% 1,000 ML IV SCH ×2 (08:43→18:35)
[2016-12-02] MEDS ORDERED: methylPREDNISolone Sodium Succinate 40 MG/1 ML SDV IVPUSH ONE (11:05)
--- NOTE | 2016-12-02 11:11 | PCM.PN ---
- General Info Date of Service: 12/02/16 Admission Dx/Problem (Free Text): Abdominal pain & pneumonia Subjective Update: C/o chest pressure midsternal, 10, no palpitations, diaphoresis or radiation of pain. It is a pressure like knot that started this morning. Having some SOB with this, does have a productive congested cough. Abdominal pain continues to midline, but has improved since admission. Functional Status: Reports: tolerating diet, ambulating, urinating - Review of Systems General: Reports: No Symptoms. Denies: Fever, Weakness, Malaise HEENT: Reports: no symptoms. Denies: sinus congestion, sore throat Pulmonary: Reports: shortness of breath, cough, sputum Cardiovascular: Reports: Chest Pain. Denies: Palpitations, Dyspnea on Exertion , Edema, Lightheadedness Gastrointestinal: Reports: Abdominal pain. Denies: Nausea, Vomiting Genitourinary: Reports: no symptoms. Denies: dysuria, frequency, burning, pain Musculoskeletal: Reports: no symptoms Skin: Reports: no symptoms Neurological: Reports: No Symptoms Psychiatric: Reports: no symptoms - Patient Data Vitals - most recent: Last Vital Signs Temp 97.0 F 12/02/16 08:00 Pulse 57 L 12/02/16 08:00 Resp 16 12/02/16 08:00 BP 98/57 L 12/02/16 08:00 Pulse Ox 95 12/02/16 08:00 Weight - most recent: 76 kg I&O - last 24 hours: Intake & Output 12/01/16 12/02/16 12/02/16 22:59 06:59 14:59 Intake Total 50 559 Output Total 0 Balance 50 559 Lab Results last 24 hrs: Laboratory Results - last 24 hr 12/01/16 12/02/16 12/02/16 Range/Units 20:25 04:15 04:15 WBC 8.44 (4.0-11.0) K/uL RBC 3.84 L (4.30-5.90) M/uL Hgb 12.8 (12.0-16.0) g/dL Hct 37.3 (36.0-46.0) % MCV 97.1 (80.0-98.0) fL MCH 33.3 H (27.0-32.0) pg MCHC 34.3 (31.0-37.0) g/dL RDW Std Deviation 47.5 (28.0-62.0) fl RDW Coeff of [place] 15 (11.0-15.0) % Plt Count 226 (150-400) K/uL MPV 9.80 (7.40-12.00) fL Add Manual Diff YES Neutrophils % (Manual) 64 (48.0-80.0) % Band Neutrophils % 1 % Lymphocytes % (Manual) 29 (16.0-40.0) % Monocytes % (Manual) 1 (0.0-15.0) % Eosinophils % (Manual) 1 (0.0-7.0) % Nucleated RBC % 0.0 /100WBC Absolute Seg Neuts 5.4 Band Neutrophils # 0.1 Lymphocytes # (Manual) 2.4 Monocytes # (Manual) 0.1 Eosinophils # (Manual) 0.1 Nucleated RBCs # 0 K/uL Lactate 0.7 (0.20-2.00) mmol/L Sodium 139 (136-146) mmol/L Potassium 4.4 (3.5-5.1) mmol/L Chloride 109 (98-110) mmol/L Carbon Dioxide 23 (21-31) mmol/L BUN 10 (6.0-23.0) mg/dL Creatinine 0.6 (0.6-1.5) mg/dL Est Cr Clr Drug Dosing 81.45 mL/min Estimated GFR (MDRD) > 60.0 ml/min Glucose 95 (60-110) mg/dL POC Glucose (60-110) mg/dL Calcium 7.8 L (8.8-10.8) mg/dL Troponin I (0.0-0.29) NG/ML 12/02/16 12/02/16 Range/Units 06:50 09:50 WBC (4.0-11.0) K/uL RBC (4.30-5.90) M/uL Hgb (12.0-16.0) g/dL Hct (36.0-46.0) % MCV (80.0-98.0) fL MCH (27.0-32.0) pg MCHC (31.0-37.0) g/dL RDW Std Deviation (28.0-62.0) fl RDW Coeff of [place] (11.0-15.0) % Plt Count (150-400) K/uL MPV (7.40-12.00) fL Add Manual Diff Neutrophils % (Manual) (48.0-80.0) % Band Neutrophils % % Lymphocytes % (Manual) (16.0-40.0) % Monocytes % (Manual) (0.0-15.0) % Eosinophils % (Manual) (0.0-7.0) % Nucleated RBC % /100WBC Absolute Seg Neuts Band Neutrophils # Lymphocytes # (Manual) Monocytes # (Manual) Eosinophils # (Manual) Nucleated RBCs # K/uL Lactate (0.20-2.00) mmol/L Sodium (136-146) mmol/L Potassium (3.5-5.1) mmol/L Chloride (98-110) mmol/L Carbon Dioxide (21-31) mmol/L BUN (6.0-23.0) mg/dL Creatinine (0.6-1.5) mg/dL Est Cr Clr Drug Dosing mL/min Estimated GFR (MDRD) ml/min Glucose (60-110) mg/dL POC Glucose 77 (60-110) mg/dL Calcium (8.8-10.8) mg/dL Troponin I < 0.10 (0.0-0.29) NG/ML Enoc Results last 24 hrs: Microbiology 12/02/16 08:00 Gram Stain - Preliminary Sputum - Expectorated 12/02/16 00:20 Influenza Type A Antigen Screen - Final Nasopharyngeal Swab NEGATIVE INFLUENZA A VIRUS AG Influenza Type B Antigen Screen - Final NEGATIVE INFLUENZA B VIRUS AG Med Orders - Current: Current Medications Acetaminophen (Tylenol) 650 mg PO Q4H PRN PRN Reason: Pain Last Admin: 12/01/16 22:12 Dose: 650 mg Albuterol/Ipratropium (Duoneb 3.0-0.5 Mg/3 Ml) 3 ml NEB Q6HR JENNIFER Aspirin (Halfprin) 81 mg PO BEDTIME JENNIFER Enoxaparin Sodium (Lovenox) 40 mg SUBCUT DAILY JENNIFER Last Admin: 12/02/16 08:40 Dose: 40 mg Fluticasone Propionate (Flonase) 1 gm NASBOTH DAILY JENNIFER Last Admin: 12/02/16 08:39 Dose: 1 spray Hydromorphone HCl (Dilaudid) 0.5 mg IVPUSH Q3H PRN PRN Reason: Pain Last Admin: 12/02/16 03:57 Dose: 0.5 mg Sodium Chloride (Normal Saline) 1,000 mls @ 125 mls/hr IV ASDIRECTED JENNIFER Last Admin: 12/02/16 08:43 Dose: 125 mls/hr Ceftriaxone Sodium/Dextrose 1 (gm/ Premix) 50 mls @ 100 mls/hr IV Q24H JENNIFER Azithromycin 500 mg/ Sodium (Chloride) 250 mls @ 250 mls/hr IV Q24H JENNIFER Last Admin: 12/01/16 22:33 Dose: 250 mls/hr Vancomycin HCl 1 gm/ Sodium (Chloride) 250 mls @ 166 mls/hr IV Q12H JENNIFER Last Admin: 12/02/16 00:15 Dose: 166 mls/hr Effient 10 Mg 1 each PO DAILY JENNIFER Last Admin: 12/02/16 08:39 Dose: Not Given Symbicort 160/4.5 1 each INH DAILY JENNIFER Last Admin: 12/02/16 08:39 Dose: Not Given Rosuvastatin Calcium (Crestor) 40 mg PO BEDTIME [facility] Sodium Chloride (Sodium Chloride 0.9%) 3 ml INH Q6H PRN PRN Reason: Shortness of Breath Vancomycin HCl (Pharmacy To Dose - Vancomycin) 1 dose .XX ASDIRECTED [facility] Discontinued Medications Albuterol/Ipratropium (Duoneb 3.0-0.5 Mg/3 Ml) 3 ml NEB Q6HRRT PRN PRN Reason: Shortness of Breath Last Admin: 12/02/16 09:14 Dose: 3 ml Albuterol/Ipratropium (Duoneb 3.0-0.5 Mg/3 Ml) 3 ml NEB Q6HR PRN PRN Reason: shortness of breath Diphenhydramine HCl (Benadryl) Confirm Administered Dose 50 mg .ROUTE .STK-MED ONE Stop: 12/01/16 17:28 Last Admin: 12/01/16 18:33 Dose: Not Given Diphenhydramine HCl (Benadryl) 25 mg IVPUSH ONETIME ONE Stop: 12/01/16 17:30 Last Admin: 12/01/16 17:29 Dose: 25 mg Sodium Chloride (Normal Saline) 1,000 mls @ 999 mls/hr IV .Bolus ONE Stop: 12/01/16 16:55 Last Admin: 12/01/16 16:18 Dose: 999 mls/hr Sodium Chloride (Normal Saline) 1,000 mls @ 999 mls/hr IV .Bolus ONE Stop: 12/01/16 18:29 Last Admin: 12/01/16 17:40 Dose: 999 mls/hr Azithromycin 1,000 mg/ Sodium (Chloride) 500 mls @ 250 mls/hr IV ONETIME ONE Stop: 12/01/16 21:52 Last Admin: 12/01/16 23:04 Dose: Not Given Ceftriaxone Sodium/Dextrose 1 (gm/ Premix) 50 mls @ 100 mls/hr IV ONETIME ONE Stop: 12/01/16 20:22 Last Admin: 12/01/16 20:38 Dose: 100 mls/hr Azithromycin 500 mg/ Sodium (Chloride) 250 mls @ 250 mls/hr IV Q24H JENNIFER Last Admin: 12/01/16 23:04 Dose: Not Given Iopamidol (Isovue Multipack-370 (76%)) 100 ml IVPUSH ONETIME STA Stop: 12/01/16 17:07 Last Admin: 12/02/16 07:09 Dose: Not Given Ketorolac Tromethamine (Toradol) 30 mg IVPUSH ONETIME ONE Stop: 12/01/16 18:21 Last Admin: 12/01/16 18:31 Dose: 30 mg Morphine Sulfate (Morphine) 4 mg IVPUSH ONETIME ONE Stop: 12/01/16 16:42 Last Admin: 12/01/16 17:06 Dose: Not Given Morphine Sulfate (Morphine) 4 mg IVPUSH ONETIME ONE Stop: 12/01/16 17:01 Last Admin: 12/01/16 17:07 Dose: 4 mg Ondansetron HCl (Zofran) 4 mg IVPUSH ONETIME ONE Stop: 12/01/16 15:56 Last Admin: 12/01/16 16:17 Dose: 4 mg - Exam Quality Assessment: supplemental oxygen, DVT prophylaxis General: alert, oriented, cooperative, mild distress Neck: supple, no JVD Lungs: Wheezing (throughout). No: Normal respiratory effort (SOB noted with moist productive cough) Cardiovascular: Regular Rate, Regular Rhythm Abdomen: bowel sounds present, soft, tenderness (midline), other (LUQ colostomy noted.) Extremities: no edema, normal pulses Neurological: no new focal deficit Psy/Mental Status: alert, normal affect, normal mood - Problem List & Annotations (1) Pneumonia SNOMED Code(s): 767077611 Code(s): J18.9 - PNEUMONIA, UNSPECIFIED ORGANISM Status: Acute Current Visit: Yes Qualifiers: Pneumonia type: due to unspecified organism Laterality: left Lung location: lower lobe of lung Qualified Code(s): J18.1 - Lobar pneumonia, unspecified organism (2) Abdominal pain SNOMED Code(s): 05265474 Code(s): R10.9 - UNSPECIFIED ABDOMINAL PAIN Status: Acute Current Visit: Yes Qualifiers: Abdominal location: periumbilical Qualified Code(s): R10.33 - Periumbilical pain (3) COPD (chronic obstructive pulmonary disease) SNOMED Code(s): 96614957 Code(s): J44.9 - CHRONIC OBSTRUCTIVE PULMONARY DISEASE, UNSPECIFIED Status : Chronic Priority: High Current Visit: No Qualifiers: COPD type: COPD with acute exacerbation Qualified Code(s): J44.1 - Chronic obstructive pulmonary disease with (acute) exacerbation (4) Anxiety SNOMED Code(s): 23585707 Code(s): F41.9 - ANXIETY DISORDER, UNSPECIFIED Status: Chronic Current Visit: No (5) CAD (coronary artery disease) SNOMED Code(s): 78858956 Code(s): I25.10 - ATHSCL HEART DISEASE OF [place] CORONARY ARTERY W/O ANG PCTRS Status: Chronic Current Visit: No Qualifiers: Coronary Disease-Associated Artery/Lesion type: [place] artery [place] vs. transplanted heart: [place] heart Associated angina: without angina Qualified Code(s): I25.10 - Atherosclerotic heart disease of [place] coronary artery without angina pectoris (6) HLD (hyperlipidemia) SNOMED Code(s): 59158770 Code(s): E78.5 - HYPERLIPIDEMIA, UNSPECIFIED Status: Chronic Current Visit: No Qualifiers: Hyperlipidemia type: unspecified Qualified Code(s): E78.5 - Hyperlipidemia , unspecified (7) HTN (hypertension) SNOMED Code(s): 88173812 Code(s): I10 - ESSENTIAL (PRIMARY) HYPERTENSION Status: Chronic Current Visit: No Qualifiers: Hypertension type: essential hypertension Qualified Code(s): I10 - Essential (primary) hypertension - Problem List Review Problem List Initiated/Reviewed/Updated: Yes - My Orders Last 24 Hours: My Active Orders 12/02/16 09:19 EKG Documentation Completion [RC] STAT Telemetry Monitoring [Cardiac Monitoring] [RC] . DIRECTED 12/02/16 11:05 methylPREDNISolone Sod Succ [Solu-MEDROL] 40 mg IVPUSH ONETIME ONE 12/02/16 12:00 Albuterol/Ipratropium [DuoNeb 3.0-0.5 MG/3 ML] 3 ml NEB Q6HR 12/03/16 08:00 predniSONE 40 mg PO WITHBREAKFAST - Plan Plan:: This 61 year old female admitted with abdominal pain and pneumonia. 1. Abdominal pain: CT abdomen reported subtle stranding about the infrarenal abdominal aorta. 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 Cultures pending. 2. Pneumonia: CT suggestive of pneumonia. We will treat with Rocephin and Azithromycin. Adding Prednisone. Schedule Duonebs. Oxygen as needed and may wean as tolerated. 3. COPD: Slight exacerbation suspected secondary to excessive wheezing. Will give one dose of Solumedrol IV today and start Prednisone in am, cautious with abdominal pain and questionable infection. Monitor closely. Continue home inhalers as well. 4. HTN: Holding antihypertensives secondary to slight hypotension, 90-100s SBP. Will monitor 5. CAD: Continue Effient ASA and Crestor. Did have chest pressure this am, suspect it may be related to COPD, EKG did not show any ST segment changes, troponin negative. Will place on Telemetry and monitor serial troponins secondary to hx of CAD and stenting. VTE prophylaxis: Lovenox. Dispo: Pending improvement.
[2016-12-02] MEDS ORDERED: ALPRAZolam 0.5 MG Tab PO PRN (11:19)
[2016-12-02] MEDS: Albuterol/Ipratropium 3.0-0.5 MG/3 ML Neb Soln NEB SCH ×2 (11:33→18:01)
--- NOTE | 2016-12-02 11:54 | CT ---
EXAM DATE: 12/01/16 PATIENT'S AGE: 61 Patient: JOANNA TANNER Facility: [place], [place] Site . Site : 1955 Study: CT Abdomen/Pelvis [id number]/12/2017 5:49:40 PM Ordering Physician: Cruzito Scott Final Report: CLINICAL INDICATION: Abdominal pain, nausea, vomiting and fever. Technique: Axial intravenously infused CT cuts were performed from above the diaphragm to below the ischial tuberosities. Comparison : 11/19/2016. Findings: There is a very large midline ventral hernia that measures approximately 18 cm transversely, 5.5 cm AP and 22 cm cranial caudally. The hernia sac contains colon, small bowel, and mesenteric fat. There is no bowel obstruction. There are few calcifications within the spleen consistent prior granulomatous disease. The liver, pancreas, adrenals and kidneys appear normal. There are no enlarged retroperitoneal or mesenteric lymph nodes. There is no free intraperitoneal air or fluid. These been a hysterectomy. The small bowel appears normal. There is a mosaic perfusion appearance lung bases suggestive of air trapping from asthma. There is also an area of fine reticular nodularity within the right lower lobe (for example see image 10 of series 201) that is suggestive of an active inflammatory process. There is dense atelectasis within and in the right lower lobe and inferior segment of lingula. Impression: 1. Very large midline ventral hernia containing colon, small bowel and mesenteric fat. There is no bowel obstruction. 2. Mosaic perfusion appearance at the lung bases suggestive of air-trapping from asthma. 3. Area of reticular nodularity within right lower lobe suggestive of an infectious/inflammatory etiology. Please note that all CT scans at this facility use dose modulation, iterative reconstruction, and/or weight-based dosing when appropriate to reduce radiation dose to as low as reasonably achievable. Dictated by Jason Piper MD @ Dec 01 2016 6:38PM (Electronic Signature) Report Signed by Proxy. MTDD
--- NOTE | 2016-12-02 12:54 | CR ---
EXAM DATE: 12/01/16 PATIENT'S AGE: 61 Patient: JOANNA TANNER Facility: [place], [place] Site . Site : 1955 Study: XRay Chest [id number]/12/2017 11:34:44 PM Ordering Physician: Sami Iyer Final Report: Indication: Pneumonia Technique: Chest 2 views Comparison: 07/23/2016. Findings/Impression: Cardiovascular and mediastinum: Heart size and vasculature are normal in caliber and appearance. Mediastinum is within normal limits. Lungs and pleural spaces: An ill-defined left basilar opacity adjacent to the cardiac apex, not seen on the prior, concerning for an infiltrate, although could be partially related to an epicardial fat pad and atelectasis. Correlate clinically and followup. No pleural effusions. Bones and soft tissues: No significant change. Dictated by Rich Keller MD @ 12/01/2016 11:42:09 PM Dictated by: Rich Keller MD @ 12/01/2016 23:42:19 (Electronic Signature) Report Signed by Proxy. [facility]
[2016-12-02] MEDS: Rosuvastatin 10 MG Tab PO SCH (20:39)
[2016-12-02] MEDS: Aspirin 81 MG Tab.EC PO SCH (20:40)
[2016-12-02] MEDS: cefTRIAXone 1 GM in Premix Bag 1 BAG IV SCH (20:43)
[2016-12-02] MEDS: Azithromycin 500 MG in Sodium Chloride 0.9% 250 ML IV SCH (22:40)
[2016-12-03] MEDS: HYDROmorphone 1 MG/ML Syringe IVPUSH PRN ×5 (00:11→20:51)
[2016-12-03] MEDS: Albuterol/Ipratropium 3.0-0.5 MG/3 ML Neb Soln NEB SCH ×5 (00:20→23:39)
[2016-12-03 05:27] LABS: CHLORIDE,CL 109 mmol/L (98-110); SODIUM,NA 138 mmol/L (136-146)
[2016-12-03] MEDS: Sodium Chloride 0.9% 1,000 ML IV SCH (05:54)
[2016-12-03] MEDS: Losartan 50 MG Tab PO SCH (08:18)
[2016-12-03] MEDS: predniSONE 20 MG Tab PO SCH (08:19)
[2016-12-03] MEDS: Enoxaparin 40 MG/0.4 ML Syringe SUBCUT SCH (08:20)
[2016-12-03] MEDS: EFFIENT 10 MG PO SCH (08:20)
[2016-12-03] MEDS: Fluticasone Propionate Nasal Spray 16 GM Bottle NASBOTH SCH (08:20)
[2016-12-03] MEDS: SYMBICORT 160/4.5 INH SCH (08:21)
--- NOTE | 2016-12-03 11:10 | PCM.PN ---
- General Info Date of Service: 12/03/16 Admission Dx/Problem (Free Text): Abdominal pain & pneumonia Subjective Update: Doing better today. Chest pressure is gone. Breathing is much less labored feeling. She continues to cough up sputum. Abdominal pain is improving, has not had a BM. Functional Status: Reports: pain controlled, tolerating diet, ambulating, urinating - Review of Systems General: Reports: No Symptoms. Denies: Fever Pulmonary: Reports: pleuritic chest pain, cough, sputum. Denies: shortness of breath Cardiovascular: Denies: Chest Pain, Palpitations, Edema Gastrointestinal: Reports: Abdominal pain (intermittently to lower abdomen), Constipation. Denies: Nausea, Vomiting Genitourinary: Reports: no symptoms Musculoskeletal: Reports: no symptoms Skin: Reports: no symptoms Neurological: Reports: No Symptoms Psychiatric: Reports: no symptoms - Patient Data Vitals - most recent: Last Vital Signs Temp 97.9 F 12/03/16 08:00 Pulse 71 12/03/16 08:00 Resp 20 12/03/16 08:00 BP 157/60 H 12/03/16 08:18 Pulse Ox 91 L 12/03/16 08:00 Weight - most recent: 76 kg I&O - last 24 hours: Intake & Output 12/02/16 12/03/16 12/03/16 22:59 06:59 14:59 Intake Total 1794 2565 Output Total 900 3050 Balance 894 -485 Lab Results last 24 hrs: Laboratory Results - last 24 hr 12/02/16 12/02/16 12/02/16 Range/Units 11:46 16:07 16:47 WBC (4.0-11.0) K/uL RBC (4.30-5.90) M/uL Hgb (12.0-16.0) g/dL Hct (36.0-46.0) % MCV (80.0-98.0) fL MCH (27.0-32.0) pg MCHC (31.0-37.0) g/dL RDW Std Deviation (28.0-62.0) fl RDW Coeff of [place] (11.0-15.0) % Plt Count (150-400) K/uL MPV (7.40-12.00) fL Neut % (Auto) (48.0-80.0) % Lymph % (Auto) (16.0-40.0) % [place] % (Auto) (0.0-15.0) % Eos % (Auto) (0.0-7.0) % Baso % (Auto) (0.0-1.5) % Neut # (Auto) (1.4-5.7) K/uL Lymph # (Auto) (0.6-2.4) K/uL [place] # (Auto) (0.0-0.8) K/uL Eos # (Auto) (0.0-0.7) K/uL Baso # (Auto) (0.0-0.1) K/uL Nucleated RBC % /100WBC Nucleated RBCs # K/uL Sodium (136-146) mmol/L Potassium (3.5-5.1) mmol/L Chloride (98-110) mmol/L Carbon Dioxide (21-31) mmol/L BUN (6.0-23.0) mg/dL Creatinine (0.6-1.5) mg/dL Est Cr Clr Drug Dosing mL/min Estimated GFR (MDRD) ml/min Glucose (60-110) mg/dL POC Glucose 93 165 H (60-110) mg/dL Calcium (8.8-10.8) mg/dL Troponin I < 0.10 (0.0-0.29) NG/ML 12/02/16 12/03/16 12/03/16 Range/Units 22:05 04:34 04:34 WBC 12.86 H (4.0-11.0) K/uL RBC 3.84 L (4.30-5.90) M/uL Hgb 12.6 (12.0-16.0) g/dL Hct 37.1 (36.0-46.0) % MCV 96.6 (80.0-98.0) fL MCH 32.8 H (27.0-32.0) pg MCHC 34.0 (31.0-37.0) g/dL RDW Std Deviation 46.2 (28.0-62.0) fl RDW Coeff of [place] 15 (11.0-15.0) % Plt Count 246 (150-400) K/uL MPV 9.80 (7.40-12.00) fL Neut % (Auto) 82.6 H (48.0-80.0) % Lymph % (Auto) 11.1 L (16.0-40.0) % [place] % (Auto) 6.1 (0.0-15.0) % Eos % (Auto) 0.1 (0.0-7.0) % Baso % (Auto) 0.1 (0.0-1.5) % Neut # (Auto) 10.6 H (1.4-5.7) K/uL Lymph # (Auto) 1.4 (0.6-2.4) K/uL [place] # (Auto) 0.8 (0.0-0.8) K/uL Eos # (Auto) 0.0 (0.0-0.7) K/uL Baso # (Auto) 0.0 (0.0-0.1) K/uL Nucleated RBC % 0.0 /100WBC Nucleated RBCs # 0 K/uL Sodium 138 (136-146) mmol/L Potassium 4.6 (3.5-5.1) mmol/L Chloride 109 (98-110) mmol/L Carbon Dioxide 24 (21-31) mmol/L BUN 8 (6.0-23.0) mg/dL Creatinine 0.6 (0.6-1.5) mg/dL Est Cr Clr Drug Dosing 81.45 mL/min Estimated GFR (MDRD) > 60.0 ml/min Glucose 149 H (60-110) mg/dL POC Glucose (60-110) mg/dL Calcium 8.3 L (8.8-10.8) mg/dL Troponin I < 0.10 (0.0-0.29) NG/ML 12/03/ Range/Units 07:22 WBC (4.0-11.0) K/uL RBC (4.30-5.90) M/uL Hgb (12.0-16.0) g/dL Hct (36.0-46.0) % MCV (80.0-98.0) fL MCH (27.0-32.0) pg MCHC (31.0-37.0) g/dL RDW Std Deviation (28.0-62.0) fl RDW Coeff of [place] (11.0-15.0) % Plt Count (150-400) K/uL MPV (7.40-12.00) fL Neut % (Auto) (48.0-80.0) % Lymph % (Auto) (16.0-40.0) % [place] % (Auto) (0.0-15.0) % Eos % (Auto) (0.0-7.0) % Baso % (Auto) (0.0-1.5) % Neut # (Auto) (1.4-5.7) K/uL Lymph # (Auto) (0.6-2.4) K/uL [place] # (Auto) (0.0-0.8) K/uL Eos # (Auto) (0.0-0.7) K/uL Baso # (Auto) (0.0-0.1) K/uL Nucleated RBC % /100WBC Nucleated RBCs # K/uL Sodium (136-146) mmol/L Potassium (3.5-5.1) mmol/L Chloride (98-110) mmol/L Carbon Dioxide (21-31) mmol/L BUN (6.0-23.0) mg/dL Creatinine (0.6-1.5) mg/dL Est Cr Clr Drug Dosing mL/min Estimated GFR (MDRD) ml/min Glucose (60-110) mg/dL POC Glucose 153 H (60-110) mg/dL Calcium (8.8-10.8) mg/dL Troponin I (0.0-0.29) NG/ML [place] Results last 24 hrs: Microbiology 12/02/16 08:00 Gram Stain - Final Sputum - Expectorated 12/01/16 20:20 Aerobic Blood Culture - Preliminary Blood - Venous - Lab Draw NO GROWTH AFTER 1 DAY Anaerobic Blood Culture - Preliminary NO GROWTH AFTER 1 DAY Med Orders - Current: Current Medications Acetaminophen (Tylenol) 650 mg PO Q4H PRN PRN Reason: Pain Last Admin: 12/01/16 22:12 Dose: 650 mg Albuterol/Ipratropium (Duoneb 3.0-0.5 Mg/3 Ml) 3 ml NEB Q6HR JENNIFER Last Admin: 12/03/16 05:36 Dose: 3 ml Alprazolam (Xanax) 0.5 mg PO BEDTIME PRN PRN Reason: Sleep Aspirin (Halfprin) 81 mg PO BEDTIME JENNIFER Last Admin: 12/02/16 20:40 Dose: 81 mg Docusate Sodium (Colace) 100 mg PO BID PRN PRN Reason: Constipation Enoxaparin Sodium (Lovenox) 40 mg SUBCUT DAILY [facility] Last Admin: 12/03/16 08:20 Dose: 40 mg Fluticasone Propionate (Flonase) 1 gm NASBOTH DAILY [facility] Last Admin: 12/03/16 08:20 Dose: 1 spray Hydromorphone HCl (Dilaudid) 0.5 mg IVPUSH Q3H PRN PRN Reason: Pain Last Admin: 12/03/16 07:33 Dose: 0.5 mg Ceftriaxone Sodium/Dextrose 1 (gm/ Premix) 50 mls @ 100 mls/hr IV Q24H [facility] Last Admin: 12/02/16 20:43 Dose: 100 mls/hr Azithromycin 500 mg/ Sodium (Chloride) 250 mls @ 250 mls/hr IV Q24H [facility] Last Admin: 12/02/16 22:40 Dose: 250 mls/hr Vancomycin HCl 1 gm/ Sodium (Chloride) 250 mls @ 166 mls/hr IV Q12H [facility] Last Admin: 12/03/16 00:03 Dose: 166 mls/hr Losartan Potassium (Cozaar) 25 mg PO DAILY [facility] Last Admin: 12/03/16 08:18 Dose: 25 mg Effient 10 Mg 1 each PO DAILY [facility] Last Admin: 12/03/16 08:20 Dose: 1 each Symbicort 160/4.5 1 each INH DAILY [facility] Last Admin: 12/03/16 08:21 Dose: 1 each Prednisone (Prednisone) 40 mg PO WITHBREAKFAST [facility] Last Admin: 12/03/16 08:19 Dose: 40 mg Rosuvastatin Calcium (Crestor) 40 mg PO BEDTIME [facility] Last Admin: 12/02/16 20:39 Dose: 40 mg Sodium Chloride (Sodium Chloride 0.9%) 3 ml INH Q6H PRN PRN Reason: Shortness of Breath Vancomycin HCl (Pharmacy To Dose - Vancomycin) 1 dose .XX ASDIRECTED [facility] Discontinued Medications Albuterol/Ipratropium (Duoneb 3.0-0.5 Mg/3 Ml) 3 ml NEB Q6HRRT PRN PRN Reason: Shortness of Breath Last Admin: 12/02/16 09:14 Dose: 3 ml Albuterol/Ipratropium (Duoneb 3.0-0.5 Mg/3 Ml) 3 ml NEB Q6HR PRN PRN Reason: shortness of breath Diphenhydramine HCl (Benadryl) Confirm Administered Dose 50 mg .ROUTE .STK-MED ONE Stop: 12/01/16 17:28 Last Admin: 12/01/16 18:33 Dose: Not Given Diphenhydramine HCl (Benadryl) 25 mg IVPUSH ONETIME ONE Stop: 12/01/16 17:30 Last Admin: 12/01/16 17:29 Dose: 25 mg Sodium Chloride (Normal Saline) 1,000 mls @ 999 mls/hr IV .Bolus ONE Stop: 12/01/16 16:55 Last Admin: 12/01/16 16:18 Dose: 999 mls/hr Sodium Chloride (Normal Saline) 1,000 mls @ 999 mls/hr IV .Bolus ONE Stop: 12/01/16 18:29 Last Admin: 12/01/16 17:40 Dose: 999 mls/hr Azithromycin 1,000 mg/ Sodium (Chloride) 500 mls @ 250 mls/hr IV ONETIME ONE Stop: 12/01/16 21:52 Last Admin: 12/01/16 23:04 Dose: Not Given Ceftriaxone Sodium/Dextrose 1 (gm/ Premix) 50 mls @ 100 mls/hr IV ONETIME ONE Stop: 12/01/16 20:22 Last Admin: 12/01/16 20:38 Dose: 100 mls/hr Azithromycin 500 mg/ Sodium (Chloride) 250 mls @ 250 mls/hr IV Q24H [facility] Last Admin: 12/01/16 23:04 Dose: Not Given Sodium Chloride (Normal Saline) 1,000 mls @ 125 mls/hr IV ASDIRECTED [facility] Last Admin: 12/03/16 05:54 Dose: 125 mls/hr Iopamidol (Isovue Multipack-370 (76%)) 100 ml IVPUSH ONETIME STA Stop: 12/01/16 17:07 Last Admin: 12/02/16 07:09 Dose: Not Given Ketorolac Tromethamine (Toradol) 30 mg IVPUSH ONETIME ONE Stop: 12/01/16 18:21 Last Admin: 12/01/16 18:31 Dose: 30 mg Methylprednisolone Sodium Succinate (Solu-Medrol) 40 mg IVPUSH ONETIME ONE Stop: 12/02/16 11:06 Last Admin: 12/02/16 11:21 Dose: 40 mg Morphine Sulfate (Morphine) 4 mg IVPUSH ONETIME ONE Stop: 12/01/16 16:42 Last Admin: 12/01/16 17:06 Dose: Not Given Morphine Sulfate (Morphine) 4 mg IVPUSH ONETIME ONE Stop: 12/01/16 17:01 Last Admin: 12/01/16 17:07 Dose: 4 mg Ondansetron HCl (Zofran) 4 mg IVPUSH ONETIME ONE Stop: 12/01/16 15:56 Last Admin: 12/01/16 16:17 Dose: 4 mg - Exam Quality Assessment: No: supplemental oxygen General: alert, oriented, cooperative, no acute distress Neck: supple Lungs: Wheezing (bibasilar) Cardiovascular: Regular Rate, Regular Rhythm Abdomen: bowel sounds present, soft, no distension, tenderness (lower abdomen, improving) Extremities: no edema, normal pulses Psy/Mental Status: alert, normal affect, normal mood - Problem List & Annotations (1) Pneumonia SNOMED Code(s): 329266502 Code(s): J18.9 - PNEUMONIA, UNSPECIFIED ORGANISM Status: Acute Current Visit: Yes Qualifiers: Pneumonia type: due to unspecified organism Laterality: left Lung location: lower lobe of lung Qualified Code(s): J18.1 - Lobar pneumonia, unspecified organism (2) Abdominal pain SNOMED Code(s): 79130714 Code(s): R10.9 - UNSPECIFIED ABDOMINAL PAIN Status: Acute Current Visit: Yes Qualifiers: Abdominal location: periumbilical Qualified Code(s): R10.33 - Periumbilical pain (3) COPD (chronic obstructive pulmonary disease) SNOMED Code(s): 50956254 Code(s): J44.9 - CHRONIC OBSTRUCTIVE PULMONARY DISEASE, UNSPECIFIED Status : Chronic Priority: High Current Visit: No Qualifiers: COPD type: COPD with acute exacerbation Qualified Code(s): J44.1 - Chronic obstructive pulmonary disease with (acute) exacerbation (4) Anxiety SNOMED Code(s): 05596662 Code(s): F41.9 - ANXIETY DISORDER, UNSPECIFIED Status: Chronic Current Visit: No (5) CAD (coronary artery disease) SNOMED Code(s): 48138752 Code(s): I25.10 - ATHSCL HEART DISEASE OF [place] CORONARY ARTERY W/O ANG PCTRS Status: Chronic Current Visit: No Qualifiers: Coronary Disease-Associated Artery/Lesion type: [place] artery [place] vs. transplanted heart: [place] heart Associated angina: without angina Qualified Code(s): I25.10 - Atherosclerotic heart disease of [place] coronary artery without angina pectoris (6) HLD (hyperlipidemia) SNOMED Code(s): 67885657 Code(s): E78.5 - HYPERLIPIDEMIA, UNSPECIFIED Status: Chronic Current Visit: No Qualifiers: Hyperlipidemia type: unspecified Qualified Code(s): E78.5 - Hyperlipidemia , unspecified (7) HTN (hypertension) SNOMED Code(s): 94343899 Code(s): I10 - ESSENTIAL (PRIMARY) HYPERTENSION Status: Chronic Current Visit: No Qualifiers: Hypertension type: essential hypertension Qualified Code(s): I10 - Essential (primary) hypertension - Problem List Review Problem List Initiated/Reviewed/Updated: Yes - My Orders Last 24 Hours: My Active Orders 12/02/16 11:19 ALPRAZolam [Xanax] 0.5 mg PO BEDTIME PRN 12/02/16 12:00 Albuterol/Ipratropium [DuoNeb 3.0-0.5 MG/3 ML] 3 ml NEB Q6HR 12/03/16 08:00 predniSONE 40 mg PO WITHBREAKFAST 12/03/16 09:00 Losartan [Cozaar] 25 mg PO DAILY 12/03/16 09:23 Docusate Sodium [Colace] 100 mg PO BID PRN 12/04/16 05:00 BMP [BASIC METABOLIC PANEL,BMP] [CHEM] DAILY CBC WITH AUTO DIFF [HEME] DAILY - Plan Plan:: This 61 year old female admitted with abdominal pain and pneumonia. 1. Abdominal pain: Improving. Will discontinue Vancomycin, Cultures negative x 1 day. 2. Pneumonia: Improving Continue Rocephin and Azithromycin. Prednisone has helped with wheezing. Schedule Duonebs. Oxygen as needed and may wean as tolerated. 3. COPD: Continue Prednisone, will likely send home on taper. Continue home inhalers as well. 4. HTN: Restart Losartan today. Will monitor 5. CAD: Continue Effient ASA and Crestor. ACS ruled out. Chest pressure likely due to COPD exacerbation. VTE prophylaxis: Lovenox. Dispo: Pending improvement, likely discharge in am.
[2016-12-03] MEDS: Docusate Sodium 100 MG Cap PO PRN ×2 (17:52→20:51)
[2016-12-03] MEDS: Rosuvastatin 10 MG Tab PO SCH (20:50)
[2016-12-03] MEDS: Aspirin 81 MG Tab.EC PO SCH (20:51)
[2016-12-03] MEDS: cefTRIAXone 1 GM in Premix Bag 1 BAG IV SCH (20:52)
[2016-12-03] MEDS: Azithromycin 500 MG in Sodium Chloride 0.9% 250 ML IV SCH (21:57)
[2016-12-04] MEDS: HYDROmorphone 1 MG/ML Syringe IVPUSH PRN ×3 (01:12→09:02)
[2016-12-04 05:18] LABS: CHLORIDE,CL 107 mmol/L (98-110); SODIUM,NA 140 mmol/L (136-146)
[2016-12-04] MEDS: Albuterol/Ipratropium 3.0-0.5 MG/3 ML Neb Soln NEB SCH ×2 (05:49→11:18)
[2016-12-04] MEDS: predniSONE 20 MG Tab PO SCH (08:10)
[2016-12-04] MEDS: Losartan 50 MG Tab PO SCH (08:11)
[2016-12-04] MEDS: Enoxaparin 40 MG/0.4 ML Syringe SUBCUT SCH (08:12)
[2016-12-04] MEDS ORDERED: Polyethylene Glycol 3350 Powder 17 GM Packet PO SCH (09:00)
[2016-12-04] MEDS: Fluticasone Propionate Nasal Spray 16 GM Bottle NASBOTH SCH (09:21)
[2016-12-04] MEDS: EFFIENT 10 MG PO SCH (09:22)
[2016-12-04] MEDS: SYMBICORT 160/4.5 INH SCH (09:44)
--- NOTE | 2016-12-04 09:52 | PCM.DCSUM1 ---
Discharge Summary - Hospital Course Brief History: This 61 year old female with pmh of CAD, COPD and diverticulosis s/p bowel resection with colostomy. Over the past two weeks she has not been feeling well. She reports sinus and chest congestion, fevers and chills. She report lower abdominal pain and nausea but denies any diarrhea. She was seen in clinic and prescribed doxycycline and prednisone. She reports to the ED today because symptoms have not been improving. She had a CT scan of abdomen which reported new subtle stranding about the infrarenal abdominal aorta and new subcentimeter nodular opacities at the right lung base. - Discharge Data Discharge Date: 12/04/16 Discharge Disposition: Home, Self-Care 01 Condition: Good - Discharge Diagnosis/Problem(s) (1) Pneumonia SNOMED Code(s): 252377198 ICD Code: J18.9 - PNEUMONIA, UNSPECIFIED ORGANISM Status: Acute Qualifiers: Pneumonia type: due to unspecified organism Laterality: left Lung location: lower lobe of lung Qualified Code(s): J18.1 - Lobar pneumonia, unspecified organism (2) Abdominal pain SNOMED Code(s): 77202436 ICD Code: R10.9 - UNSPECIFIED ABDOMINAL PAIN Status: Acute Qualifiers: Abdominal location: periumbilical Qualified Code(s): R10.33 - Periumbilical pain (3) COPD (chronic obstructive pulmonary disease) SNOMED Code(s): 25754367 ICD Code: J44.9 - CHRONIC OBSTRUCTIVE PULMONARY DISEASE, UNSPECIFIED Status : Chronic Priority: High Qualifiers: COPD type: COPD with acute exacerbation Qualified Code(s): J44.1 - Chronic obstructive pulmonary disease with (acute) exacerbation (4) Anxiety SNOMED Code(s): 56618557 ICD Code: F41.9 - ANXIETY DISORDER, UNSPECIFIED Status: Chronic (5) CAD (coronary artery disease) SNOMED Code(s): 97039163 ICD Code: I25.10 - ATHSCL HEART DISEASE OF [place] CORONARY ARTERY W/O ANG PCTRS Status: Chronic Qualifiers: Coronary Disease-Associated Artery/Lesion type: [place] artery [place] vs. transplanted heart: [place] heart Associated angina: without angina Qualified Code(s): I25.10 - Atherosclerotic heart disease of [place] coronary artery without angina pectoris (6) HLD (hyperlipidemia) SNOMED Code(s): 48015176 ICD Code: E78.5 - HYPERLIPIDEMIA, UNSPECIFIED Status: Chronic Qualifiers: Hyperlipidemia type: unspecified Qualified Code(s): E78.5 - Hyperlipidemia , unspecified (7) HTN (hypertension) SNOMED Code(s): 49213603 ICD Code: I10 - ESSENTIAL (PRIMARY) HYPERTENSION Status: Chronic Qualifiers: Hypertension type: essential hypertension Qualified Code(s): I10 - Essential (primary) hypertension - Patient Instructions Diet: Heart Healthy Diet Activity: As Tolerated Showering/Bathing: May Shower Notify Provider of: Fever, Increased Pain, Swelling and Redness, Drainage, Nausea and/or Vomiting - Discharge Plan Prescriptions/Med Rec: Azithromycin 500 mg PO DAILY #3 tablet Prednisone [IJD: predniSONE] 40 mg PO WITHBREAKFAST #6 tablet Home Medications: Home Meds Aspirin [Halfprin] 81 mg PO BEDTIME 01/14/15 [History] Metoprolol Tartrate [Lopressor] 25 mg PO Q12HR 01/14/15 [History] Prasugrel [Effient] 10 mg PO DAILY 01/14/15 [History] Rosuvastatin [Crestor] 40 mg PO BEDTIME 01/14/15 [History] Nitroglycerin 0.4 mg PO ASDIRECTED PRN 03/24/15 [History] Budesonide/Formoterol [Symbicort 160-4.5 MCG] 2 puff INH BID 07/10/15 [History] [place]-3/DHA/Epa/Fish Oil [Fish Oil 1,000 mg Softgel] 2,000 mg PO BID 07/24/16 [ History] Albuterol/Ipratropium [DuoNeb 3.0-0.5 MG/3 ML] 3 ml NEB Q6HR PRN 30 Days [Rx] Sodium Chloride 0.9% 3 ml INH Q6H PRN 30 Days 07/28/16 [Rx] Fluticasone Propionate [Flonase] 1 gm NASBOTH DAILY 12/01/16 [History] ALPRAZolam [Alprazolam] 0.5 mg PO BEDTIME PRN 12/02/16 [History] Losartan Potassium 25 mg PO DAILY 12/02/16 [History] Tiotropium [place] [Spiriva Respimat] 2.5 mcg IH DAILY 12/02/16 [History] Azithromycin 500 mg PO DAILY #3 tablet 12/04/16 [Rx] Docusate Sodium [Colace] 100 mg PO BID PRN #0 cap 12/04/16 [Rx] Prednisone [IJD: predniSONE] 40 mg PO WITHBREAKFAST #6 tablet 12/04/16 [Rx] Patient Handouts: Abdominal Pain, Adult, Azithromycin tablets, Prednisone tablets, Community-Acquired Pneumonia, Adult, [id number] Referrals: Camilo Medina MD [Physician] - 12/11/16 12:30 pm (Please bring hospital paper works upon follow-up appointment with Dr. Medina.) - Discharge Summary/Plan Comment DC Time >30 min.: No Discharge Summary/Plan Comment: Discharge Diagnoses: Pneumonia COPD CAD Colostomy secondary to diverticulosis Crystal was admitted and treated with Azithromycin and Rocephin for community acquired pneumonia. Vancomycin was added due to subtle stranding noted about the infrarenal abdominal aorta. Adominal pain slowly improved. She tolerated diet well and continued to pass and had BM today. BC and UC negative.Significant wheezing and chest pressure was noted 2 days ago, Solumedrol x1 dose given with continued Prednisone daily, which quickly improved pressure and wheezing. She was weaned off oxygen and has been tolerating RA well with sats in the mid 90s. Today she continues to improve and is ready for discharge. I will discharge her home with 3 more days of Prednisone and Azithromycin. She is to follow up with PCP in 1 week. She was encouraged to return to clinic or ED if concerns should arise. - General Info Date of Service: 12/04/16 Admission Dx/Problem (Free Text: Abdominal pain & pneumonia Subjective Update: Reports she continues to feel well. Feels constipated. No chest pain or SOB. No palpitations. no subjective fevers. Functional Status: Reports: pain controlled, tolerating diet, ambulating, urinating - Review of Systems General: Reports: No Symptoms HEENT: Reports: no symptoms Pulmonary: Reports: no symptoms. Denies: shortness of breath, cough (no longer coughing since last night.), sputum Cardiovascular: Reports: No Symptoms. Denies: Chest Pain, Palpitations Gastrointestinal: Reports: Abdominal pain (slight tenderness remains to lower abdomen.). Denies: Nausea, Vomiting Musculoskeletal: Reports: no symptoms Skin: Reports: no symptoms Neurological: Reports: No Symptoms Psychiatric: Reports: no symptoms - Patient Data Vitals - Most Recent: Last Vital Signs Temp 97.4 F 12/04/16 09:29 Pulse 62 12/04/16 09:29 Resp 16 12/04/16 09:29 BP 93/52 L 12/04/16 09:29 Pulse Ox 93 L 12/04/16 09:29 Weight - Most Recent: 76 kg I&O - Last 24 hours: Intake & Output 12/03/16 12/04/16 12/04/16 22:59 06:59 14:59 Intake Total 1324 950 Output Total 1100 1175 Balance 224 -225 Lab Results - Last 24 hrs: Laboratory Results - last 24 hr 12/03/16 12/03/16 12/04/16 Range/Units 11:26 16:32 04:19 WBC 10.54 (4.0-11.0) K/uL RBC 3.94 L (4.30-5.90) M/uL Hgb 12.8 (12.0-16.0) g/dL Hct 37.7 (36.0-46.0) % MCV 95.7 (80.0-98.0) fL MCH 32.5 H (27.0-32.0) pg MCHC 34.0 (31.0-37.0) g/dL RDW Std Deviation 46.0 (28.0-62.0) fl RDW Coeff of [place] 14 (11.0-15.0) % Plt Count 272 (150-400) K/uL MPV 10.10 (7.40-12.00) fL Neut % (Auto) 76.5 (48.0-80.0) % Lymph % (Auto) 17.2 (16.0-40.0) % Cook % (Auto) 6.0 (0.0-15.0) % Eos % (Auto) 0.1 (0.0-7.0) % Baso % (Auto) 0.2 (0.0-1.5) % Neut # (Auto) 8.1 H (1.4-5.7) K/uL Lymph # (Auto) 1.8 (0.6-2.4) K/uL Cook # (Auto) 0.6 (0.0-0.8) K/uL Eos # (Auto) 0.0 (0.0-0.7) K/uL Baso # (Auto) 0.0 (0.0-0.1) K/uL Nucleated RBC % 0.0 /100WBC Nucleated RBCs # 0 K/uL Sodium (136-146) mmol/L Potassium (3.5-5.1) mmol/L Chloride (98-110) mmol/L Carbon Dioxide (21-31) mmol/L BUN (6.0-23.0) mg/dL Creatinine (0.6-1.5) mg/dL Est Cr Clr Drug Dosing mL/min Estimated GFR (MDRD) ml/min Glucose (60-110) mg/dL POC Glucose 79 176 H (60-110) mg/dL Calcium (8.8-10.8) mg/dL 12/04/16 12/04/16 Range/Units 04:19 06:24 WBC (4.0-11.0) K/uL RBC (4.30-5.90) M/uL Hgb (12.0-16.0) g/dL Hct (36.0-46.0) % MCV (80.0-98.0) fL MCH (27.0-32.0) pg MCHC (31.0-37.0) g/dL RDW Std Deviation (28.0-62.0) fl RDW Coeff of [place] (11.0-15.0) % Plt Count (150-400) K/uL MPV (7.40-12.00) fL Neut % (Auto) (48.0-80.0) % Lymph % (Auto) (16.0-40.0) % Cook % (Auto) (0.0-15.0) % Eos % (Auto) (0.0-7.0) % Baso % (Auto) (0.0-1.5) % Neut # (Auto) (1.4-5.7) K/uL Lymph # (Auto) (0.6-2.4) K/uL Cook # (Auto) (0.0-0.8) K/uL Eos # (Auto) (0.0-0.7) K/uL Baso # (Auto) (0.0-0.1) K/uL Nucleated RBC % /100WBC Nucleated RBCs # K/uL Sodium 140 (136-146) mmol/L Potassium 4.1 (3.5-5.1) mmol/L Chloride 107 (98-110) mmol/L Carbon Dioxide 25 (21-31) mmol/L BUN 12 (6.0-23.0) mg/dL Creatinine 0.6 (0.6-1.5) mg/dL Est Cr Clr Drug Dosing 81.45 mL/min Estimated GFR (MDRD) > 60.0 ml/min Glucose 114 H (60-110) mg/dL POC Glucose 78 (60-110) mg/dL Calcium 8.7 L (8.8-10.8) mg/dL BETH Results - Last 24 hrs: Microbiology 12/02/16 07:15 Urine Culture - Final Urine, Voided MIXED LATOYA 1,000-10,000 CFU/ML 12/02/16 08:00 Gram Stain - Final Sputum - Expectorated Sputum Culture - Final Klebsiella Pneumoniae Normal Respiratory Latoya 12/01/16 20:20 Aerobic Blood Culture - Preliminary Blood - Venous - Lab Draw NO GROWTH AFTER 2 DAYS Anaerobic Blood Culture - Preliminary NO GROWTH AFTER 2 DAYS Med Orders - Current: Current Medications Acetaminophen (Tylenol) 650 mg PO Q4H PRN PRN Reason: Pain Last Admin: 12/01/16 22:12 Dose: 650 mg Albuterol/Ipratropium (Duoneb 3.0-0.5 Mg/3 Ml) 3 ml NEB Q6HR [facility] Last Admin: 12/04/16 05:49 Dose: 3 ml Alprazolam (Xanax) 0.5 mg PO BEDTIME PRN PRN Reason: Sleep Aspirin (Halfprin) 81 mg PO BEDTIME [facility] Last Admin: 12/03/16 20:51 Dose: 81 mg Docusate Sodium (Colace) 100 mg PO BID PRN PRN Reason: Constipation Last Admin: 12/03/16 20:51 Dose: 100 mg Enoxaparin Sodium (Lovenox) 40 mg SUBCUT DAILY [facility] Last Admin: 12/04/16 08:12 Dose: 40 mg Fluticasone Propionate (Flonase) 1 gm NASBOTH DAILY [facility] Last Admin: 12/04/16 09:21 Dose: 1 spray Hydromorphone HCl (Dilaudid) 0.5 mg IVPUSH Q3H PRN PRN Reason: Pain Last Admin: 12/04/16 09:02 Dose: 0.5 mg Ceftriaxone Sodium/Dextrose 1 (gm/ Premix) 50 mls @ 100 mls/hr IV Q24H [facility] Last Admin: 12/03/16 20:52 Dose: 100 mls/hr Azithromycin 500 mg/ Sodium (Chloride) 250 mls @ 250 mls/hr IV Q24H [facility] Last Admin: 12/03/16 21:57 Dose: 250 mls/hr Losartan Potassium (Cozaar) 25 mg PO DAILY [facility] Last Admin: 12/04/16 08:11 Dose: 25 mg Effient 10 Mg 1 each PO DAILY [facility] Last Admin: 12/04/16 09:22 Dose: 1 each Symbicort 160/4.5 1 each INH DAILY [facility] Last Admin: 12/04/16 09:44 Dose: 1 each Polyethylene Glycol (Miralax) 17 gm PO DAILY [facility] Last Admin: 12/04/16 09:09 Dose: Not Given Prednisone (Prednisone) 40 mg PO WITHBREAKFAST [facility] Last Admin: 12/04/16 08:10 Dose: 40 mg Rosuvastatin Calcium (Crestor) 40 mg PO BEDTIME [facility] Last Admin: 12/03/16 20:50 Dose: 40 mg Sodium Chloride (Sodium Chloride 0.9%) 3 ml INH Q6H PRN PRN Reason: Shortness of Breath Discontinued Medications Albuterol/Ipratropium (Duoneb 3.0-0.5 Mg/3 Ml) 3 ml NEB Q6HRRT PRN PRN Reason: Shortness of Breath Last Admin: 12/02/16 09:14 Dose: 3 ml Albuterol/Ipratropium (Duoneb 3.0-0.5 Mg/3 Ml) 3 ml NEB Q6HR PRN PRN Reason: shortness of breath Diphenhydramine HCl (Benadryl) Confirm Administered Dose 50 mg .ROUTE .STK-MED ONE Stop: 12/01/16 17:28 Last Admin: 12/01/16 18:33 Dose: Not Given Diphenhydramine HCl (Benadryl) 25 mg IVPUSH ONETIME ONE Stop: 12/01/16 17:30 Last Admin: 12/01/16 17:29 Dose: 25 mg Sodium Chloride (Normal Saline) 1,000 mls @ 999 mls/hr IV .Bolus ONE Stop: 12/01/16 16:55 Last Admin: 12/01/16 16:18 Dose: 999 mls/hr Sodium Chloride (Normal Saline) 1,000 mls @ 999 mls/hr IV .Bolus ONE Stop: 12/01/16 18:29 Last Admin: 12/01/16 17:40 Dose: 999 mls/hr Azithromycin 1,000 mg/ Sodium (Chloride) 500 mls @ 250 mls/hr IV ONETIME ONE Stop: 12/01/16 21:52 Last Admin: 12/01/16 23:04 Dose: Not Given Ceftriaxone Sodium/Dextrose 1 (gm/ Premix) 50 mls @ 100 mls/hr IV ONETIME ONE Stop: 12/01/16 20:22 Last Admin: 12/01/16 20:38 Dose: 100 mls/hr Azithromycin 500 mg/ Sodium (Chloride) 250 mls @ 250 mls/hr IV Q24H [facility] Last Admin: 12/01/16 23:04 Dose: Not Given Sodium Chloride (Normal Saline) 1,000 mls @ 125 mls/hr IV ASDIRECTED [facility] Last Admin: 12/03/16 05:54 Dose: 125 mls/hr Vancomycin HCl 1 gm/ Sodium (Chloride) 250 mls @ 166 mls/hr IV Q12H [facility] Last Admin: 12/03/16 00:03 Dose: 166 mls/hr Iopamidol (Isovue Multipack-370 (76%)) 100 ml IVPUSH ONETIME STA Stop: 12/01/16 17:07 Last Admin: 12/02/16 07:09 Dose: Not Given Ketorolac Tromethamine (Toradol) 30 mg IVPUSH ONETIME ONE Stop: 12/01/16 18:21 Last Admin: 12/01/16 18:31 Dose: 30 mg Methylprednisolone Sodium Succinate (Solu-Medrol) 40 mg IVPUSH ONETIME ONE Stop: 12/02/16 11:06 Last Admin: 12/02/16 11:21 Dose: 40 mg Morphine Sulfate (Morphine) 4 mg IVPUSH ONETIME ONE Stop: 12/01/16 16:42 Last Admin: 12/01/16 17:06 Dose: Not Given Morphine Sulfate (Morphine) 4 mg IVPUSH ONETIME ONE Stop: 12/01/16 17:01 Last Admin: 12/01/16 17:07 Dose: 4 mg Ondansetron HCl (Zofran) 4 mg IVPUSH ONETIME ONE Stop: 12/01/16 15:56 Last Admin: 12/01/16 16:17 Dose: 4 mg Vancomycin HCl (Pharmacy To Dose - Vancomycin) 1 dose .XX ASDIRECTED [facility]ENN[facility]ER - Exam General: Reports: alert, oriented, cooperative, no acute distress Lungs: Reports: Normal respiratory effort, Wheezing (scant) Cardiovascular: Reports: Regular Rate, Regular Rhythm. Denies: Bradycardia Abdomen: Reports: bowel sounds present, soft, no tenderness, no distension Extremities: Reports: no edema, normal pulses Wound/Incisions: Reports: healing well Psy/Mental Status: Reports: alert, normal affect, normal mood *Q Meaningful Use (DIS) - VTE *Q VTE Criteria *Q: - Stroke *Q Stroke Criteria *Q: - AMI *Q AMI Criteria *Q:
[2016-12-04 11:30] VITALS: BP 141/63
== END 2016-12-04 11:15 | disposition home or self-care (01) | DRG 140 ==
LOC: MW.ED 15:24 → MW.MS 20:17
PROVIDERS: ADMIT Internal Medicine; ATTEND Internal Medicine
DX: J44.0 Chronic obstructive pulmonary disease with (acute) lower respiratory infection (principal); J18.9 Pneumonia, unspecified organism; J44.1 Chronic obstructive pulmonary disease with (acute) exacerbation; R10.33 Periumbilical pain; F41.9 Anxiety disorder, unspecified; I25.10 Atherosclerotic heart disease of native coronary artery without angina pectoris; E78.5 Hyperlipidemia, unspecified; I10 Essential (primary) hypertension; Z93.3 Colostomy status; K57.30 Diverticulosis of large intestine without perforation or abscess without bleeding; Z88.0 Allergy status to penicillin; Z88.8 Allergy status to other drugs, medicaments and biological substances; Z79.82 Long term (current) use of aspirin; Z79.899 Other long term (current) drug therapy; Z95.5 Presence of coronary angioplasty implant and graft; Z87.891 Personal history of nicotine dependence
CPT/HCPCS: 36415; 71020; 71020-26; 74177; 74177-26; 80048; 80053; 81001; 82962; 83605; 83690; 84484; 85025; 87040; 87070; 87077; 87086; 87186; 87205; 87804; 93005; 94640; 94664; 96361; 96374; 96375; 99285; 99285-25; A9270-GY; J0456; J0696; J1170; J1200; J1650; J1885; J2270; J2405; J2920; J3370; J7040; J7050

== ENCOUNTER 2017-01-08 11:42 | Observation (INO) | payer BC ==
[2017-01-08] MEDS ORDERED: Aspirin 81 MG Tab.Chew PO ONE (11:46)
[2017-01-08] MEDS ORDERED: Nitroglycerin 0.4 MG Tab.SL ONE (11:50)
[2017-01-08] MEDS: Nitroglycerin 0.4 MG Tab.SL SL PRN ×2 (11:50→11:55)
--- NOTE | 2017-01-08 11:50 | EDM.PDOC ---
ED HPI GENERAL MEDICAL PROBLEM - General Chief Complaint: Chest Pain Stated Complaint: CHEST PAIN Time Seen by Provider: 01/08/17 11:46 Source of Information: Reports: Patient History Limitations: Reports: No Limitations - History of Present Illness INITIAL COMMENTS - FREE TEXT/NARRATIVE: History of present illness: []Patient had an episode of substernal/ epigastric chest pain that radiates straight to her back yesterday about 1 PM lasted just a few minutes. Not take any medicines and spontaneously resolved. 5 minutes prior to arrival she developed another episode of pain is rated 10/10 at its epigastric substernal radiating to her back. On arrival she states it 7/10 after taking one nitroglycerin prior to arrival. She denies any shortness of breath, dizziness, lightheadedness, sweating. Patient has had 14 cardiac stents in the past and she also has lateral carotids stented. She states she had a heart attack in the past prior to the first stent being placed and the pain presented similar to this episode. She has been followed by Dr. Knight and has a pending CT MRI of her legs for vascular insufficiency. Patient's last stent placement was in 2014 in [place]. Review of systems: As per history of present illness and below otherwise all systems reviewed and negative. Past medical history: As per history of present illness and as reviewed below otherwise noncontributory. Surgical history: As per history of present illness and as reviewed below otherwise noncontributory. Social history: No reported history of drug or alcohol abuse. Family history: As per history of present illness and as reviewed below otherwise noncontributory. Physical exam: General: Well developed, well nourished in NAD HEENT: Atraumatic, normocephalic, pupils reactive, negative for conjunctival pallor or scleral icterus, mucous membranes moist, throat clear, neck supple, nontender, trachea midline. Lungs: Clear to auscultation, breath sounds equal bilaterally, chest nontender. Heart: S1S2, regular, negative for clicks, rubs, or JVD. Abdomen: Soft, nondistended, nontender. Negative for masses or hepatosplenomegaly. Negative for costovertebral tenderness. Pelvis: Stable nontender. Genitourinary: Deferred. Rectal: Deferred. Extremities: Atraumatic, negative for cords or calf pain. Neurovascular unremarkable. Neuro: Awake, alert, oriented. Cranial nerves II through XII unremarkable. Cerebellum unremarkable. Motor and sensory unremarkable throughout. Exam nonfocal. Diagnostics: []EKG showing no signs of acute ischemia, labs normal including negative troponin Therapeutics: []Nitroglycerin, aspirin, Pepcid and Dilaudid given Impression: []Chest pain Plan: []Hospitalist and Dr. Knight from cardiology were consulted and will be admitting this patient for observation to rule out MS. Definitive disposition and diagnosis as appropriate pending reevaluation and review of above. Middle Chest Pain Score (Numeric/FACES): 7 - Related Data Allergies Allergy/AdvReac Type Severity Reaction Status Date / Time levofloxacin [From Levaquin] Allergy Mild Rash Verified 12/01/16 20:05 Latex, Natural Rubber Allergy Rash Verified 12/01/16 20:05 penicillin Allergy Airway Verified 12/01/16 20:05 Tightness morphin Allergy Severe Hives Uncoded 12/01/16 20:05 Home Meds: Home Meds Aspirin [Halfprin] 81 mg PO BEDTIME 01/14/15 [History] Metoprolol Tartrate [Lopressor] 12.5 mg PO BID 01/14/15 [History] Prasugrel [Effient] 10 mg PO DAILY 01/14/15 [History] Rosuvastatin [Crestor] 40 mg PO DAILY 01/14/15 [History] Nitroglycerin 0.4 mg PO ASDIRECTED PRN 03/24/15 [History] [place]-3/DHA/Epa/Fish Oil [Fish Oil 1,000 mg Softgel] 2,000 mg PO BID 07/24/16 [ History] Albuterol/Ipratropium [DuoNeb 3.0-0.5 MG/3 ML] 3 ml NEB Q6HR PRN 30 Days [Rx] Sodium Chloride 0.9% 3 ml INH Q6H PRN 30 Days 07/28/16 [Rx] Fluticasone Propionate [Flonase] 1 gm NASBOTH DAILY 12/01/16 [History] ALPRAZolam [Alprazolam] 0.5 mg PO DAILY PRN 12/02/16 [History] Tiotropium [place] [Spiriva Respimat] 2.5 mcg IH DAILY 12/02/16 [History] Budesonide/Formoterol [Symbicort 160-4.5 MCG] 2 puff INH BID 01/08/17 [History] Cilostazol 100 mg PO BID 01/08/17 [History] Hydrocodone/Acetaminophen [Hydrocodon-Acetaminoph 7.5-325] 1 tab PO Q6H PRN [History] Losartan Potassium 25 mg DAILY 01/08/17 [History] Meloxicam 7.5 mg PO BID 01/08/17 [History] Methocarbamol [Robaxin] 750 mg PO TID PRN 01/08/17 [History] Nortriptyline 10 mg PO BEDTIME 01/08/17 [History] Past Medical History - Past Health History Medical/Surgical History: Denies Medical/Surgical History HEENT History: Reports: Impaired Vision Cardiovascular History: Reports: CAD, Heart Murmur, High Cholesterol, Hypertension, Stents Other Cardiovascular History: hx of MRSA Respiratory History: Reports: Bronchitis, Recurrent, COPD Gastrointestinal History: Reports: Diverticulosis, GERD, Other (See Below) Other Gastrointestinal History: Diverticulitis Genitourinary History: Reports: Urinary Incontinence Other Genitourinary History: bladder sling 2009 [employer] History: Reports: Musculoskeletal History: Reports: None Other Musculoskeletal History: 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, fracture left ankle, fractured left middle finger Neurological History: Reports: None Other Neuro History: AVM right temporal Psychiatric History: Reports: Anxiety Endocrine/Metabolic History: Reports: Other (See Below) Other Endocrine/Metabolic History: borderline diabetic Hematologic History: Reports: Anemia, Iron Deficiency Immunologic History: Reports: None Oncologic (Cancer) History: Reports: None Dermatologic History: Reports: None - Infectious Disease History Infectious Disease History: Reports: Chicken Pox, Measles, MRSA - Past Surgical History Head Surgeries/Procedures: Reports: None HEENT Surgical History: Reports: None Cardiovascular Surgical History: Reports: Carotid Endarterectomy Respiratory Surgical History: Reports: None GI Surgical History: Reports: Appendectomy, Colostomy Female Surgical History: Reports: None Endocrine Surgical History: Reports: None Neurological Surgical History: Reports: None Musculoskeletal Surgical History: Reports: None Dermatological Surgical History: Reports: Plastic Surgical Reconstruction/Repair Social & Family History - Family History Family Medical History: Noncontributory HEENT: Reports: Glaucoma : Reports: Other (See Below) Other Family History: prostate cancer Neurological: Reports: CVA Endocrine/Metabolic: Reports: Diabetes, Type I Oncologic: Reports: Prostate, Skin - Tobacco Use Smoking Status *Q: Former Smoker Years of Tobacco use: 40 Packs/Tins Daily: 0.5 Used Tobacco, but Quit: Yes Month Tobacco Last Used: 2012 Second Hand Smoke Exposure: Yes - Caffeine Use Caffeine Use: Reports: Coffee Caffeine Use Comment: 1 cup daily - Alcohol Use Days Per Week of Alcohol Use: 2 Number of Drinks Per Day: 0 Total Drinks Per Week: 0 - Recreational Drug Use Recreational Drug Use: No ED ROS GENERAL - Review of Systems Review Of Systems: See Below ED EXAM, GENERAL - Physical Exam Exam: See Below (See history of present illness) Course - Vital Signs Last Recorded V/S: Last Vital Signs Temp 36.6 C 01/09/17 04:00 Pulse 61 01/09/17 04:00 Resp 20 01/09/17 04:00 BP 110/57 L 01/09/17 04:00 Pulse Ox 93 L 01/09/17 04:00 - Orders/Labs/Meds Orders: Active Orders 24 hr Category Date Time Status Cardiac Monitoring [RC] Q8H Care 01/08/17 11:46 Active Nitroglycerin [Nitrostat] Med 01/08/17 11:46 Active 0.4 mg SL Q5M PRN Saline Lock Insert [OM.PC] Stat Oth 01/08/17 11:46 Ordered Medication Orders Acetaminophen (Tylenol) 650 mg PO Q4H PRN PRN Reason: Pain Last Admin: 01/08/17 15:11 Dose: 650 mg Hydrocodone Bitart/Acetaminophen ([place] 325-7.5 Mg) 1 tab PO Q6H PRN PRN Reason: Severe Pain Last Admin: 01/08/17 20:10 Dose: 1 tab Albuterol/Ipratropium (Duoneb 3.0-0.5 Mg/3 Ml) 3 ml NEB Q4HRRT PRN PRN Reason: Shortness Of Breath/wheezing Albuterol/Ipratropium (Duoneb 3.0-0.5 Mg/3 Ml) 3 ml NEB Q6HR PRN PRN Reason: shortness of breath Last Admin: 01/08/17 20:21 Dose: 3 ml Alprazolam (Xanax) 0.5 mg PO DAILY PRN PRN Reason: Anxiety Last Admin: 01/08/17 20:12 Dose: 0.5 mg Enoxaparin Sodium (Lovenox) 40 mg SUBCUT DAILY [facility] Hydromorphone HCl (Dilaudid) 0.5 mg IVPUSH Q3H PRN PRN Reason: Chest Pain Losartan Potassium (Cozaar) 25 mg PO DAILY [facility] Metoprolol Tartrate (Lopressor) 12.5 mg PO BID [facility] Last Admin: 01/08/17 20:12 Dose: Nitroglycerin (Nitrostat) 0.4 mg SL Q5M PRN PRN Reason: Chest Pain Stop: 01/09/17 11:47 Last Admin: 01/08/17 11:55 Dose: 0.4 mg Admin: 01/08/17 11:50 Dose: 0.4 mg Non-Formulary Medication (Cilostazol) 100 mg PO BID [facility] Non-Formulary Medication (Budesonide/Formoterol) 2 puff INH BID [facility] Ondansetron HCl (Zofran) 4 mg IVPUSH Q4H PRN PRN Reason: Nausea Ranolazine (Ranexa) 500 mg PO BID [facility] Last Admin: 01/08/17 20:10 Dose: 500 mg Admin: 01/08/17 15:38 Dose: 500 mg Rosuvastatin Calcium (Crestor) 40 mg PO DAILY [facility] Labs: Laboratory Tests 01/08/17 01/08/17 01/08/17 Range/Units 11:54 11:54 11:54 WBC 7.57 (4.0-11.0) K/uL RBC 5.17 (4.30-5.90) M/uL Hgb 15.8 (12.0-16.0) g/dL Hct 47.0 H (36.0-46.0) % MCV 90.9 (80.0-98.0) fL MCH 30.6 (27.0-32.0) pg MCHC 33.6 (31.0-37.0) g/dL RDW Std Deviation 50.9 (28.0-62.0) fl RDW Coeff of [place] 15 (11.0-15.0) % Plt Count 222 (150-400) K/uL MPV 11.00 (7.40-12.00) fL Neut % (Auto) 60.2 (48.0-80.0) % Lymph % (Auto) 27.7 (16.0-40.0) % [place] % (Auto) 10.3 (0.0-15.0) % Eos % (Auto) 1.5 (0.0-7.0) % Baso % (Auto) 0.3 (0.0-1.5) % Neut # (Auto) 4.6 (1.4-5.7) K/uL Lymph # (Auto) 2.1 (0.6-2.4) K/uL [place] # (Auto) 0.8 (0.0-0.8) K/uL Eos # (Auto) 0.1 (0.0-0.7) K/uL Baso # (Auto) 0.0 (0.0-0.1) K/uL Nucleated RBC % 0.0 /100WBC Nucleated RBCs # 0 K/uL Sodium 139 (136-146) mmol/L Potassium 4.6 (3.5-5.1) mmol/L Chloride 105 (98-110) mmol/L Carbon Dioxide 25 (21-31) mmol/L BUN 10 (6.0-23.0) mg/dL Creatinine 0.7 (0.6-1.5) mg/dL Est Cr Clr Drug Dosing 69.81 mL/min Estimated GFR (MDRD) > 60.0 ml/min Glucose 103 (60-110) mg/dL Calcium 9.5 (8.8-10.8) mg/dL Total Bilirubin 0.5 (0.1-1.5) mg/dL AST 31 (5-40) IU/L ALT 25 (8-54) IU/L Alkaline Phosphatase 96 (40-150) Troponin I < 0.10 (0.0-0.29) NG/ML Total Protein 7.1 (6.0-8.0) g/dL Albumin 3.9 (3.4-4.8) g/dL Globulin 3.2 (2.0-3.5) g/dL Albumin/Globulin Ratio 1.2 L (1.3-2.8) Lipase 56 (7-80) U/L Meds: Medications Generic Name Dose Route Start Last Admin Trade Name Freq PRN Reason Stop Dose Admin Acetaminophen 650 mg 01/08/17 14:23 01/08/17 15:11 Tylenol PO 650 mg Q4H PRN Administration Pain Hydrocodone Bitart/Acetaminophen 1 tab 01/08/17 19:23 01/08/17 20:10 [place] 325-7.5 Mg PO 1 tab Q6H PRN Administration Severe Pain Albuterol/Ipratropium 3 ml 01/08/17 14:23 Duoneb 3.0-0.5 Mg/3 Ml NEB Q4HRRT PRN Shortness Of Breath/wheezing Albuterol/Ipratropium 3 ml 01/08/17 19:23 01/08/17 20:21 Duoneb 3.0-0.5 Mg/3 Ml NEB 3 ml Q6HR PRN Administration shortness of breath Alprazolam 0.5 mg 01/08/17 19:23 01/08/17 20:12 Xanax PO 0.5 mg DAILY PRN Administration Anxiety Enoxaparin Sodium 40 mg 01/09/17 09:00 Lovenox SUBCUT DAILY [facility] Hydromorphone HCl 0.5 mg 01/08/17 19:09 Dilaudid IVPUSH Q3H PRN Chest Pain Losartan Potassium 25 mg 01/09/17 09:00 Cozaar PO DAILY [facility] Metoprolol Tartrate 12.5 mg 01/08/17 21:00 01/08/17 20:12 Lopressor PO Not Given BID [facility] Nitroglycerin 0.4 mg 01/08/17 11:46 01/08/17 11:55 Nitrostat SL 01/09/17 11:47 0.4 mg Q5M PRN Administration Chest Pain Non-Formulary Medication 100 mg 01/08/17 21:00 Cilostazol PO BID [facility] Non-Formulary Medication 2 puff 01/08/17 21:00 Budesonide/Formoterol INH BID [facility] Ondansetron HCl 4 mg 01/08/17 14:23 Zofran IVPUSH Q4H PRN Nausea Ranolazine 500 mg 01/08/17 15:30 01/08/17 20:10 Ranexa PO 500 mg BID JENNIFER Administration Rosuvastatin Calcium 40 mg 01/09/17 09:00 Crestor PO DAILY JENNIFER Discontinued Medications Generic Name Dose Route Start Last Admin Trade Name Freq PRN Reason Stop Dose Admin Aspirin 324 mg 01/08/17 11:46 01/08/17 12:16 Aspirin PO 01/08/17 11:47 324 mg ONETIME ONE Administration Famotidine 20 mg 01/08/17 12:52 01/08/17 13:11 Pepcid IVPUSH 01/08/17 12:53 20 mg ONETIME ONE Administration Hydromorphone HCl 0.5 mg 01/08/17 12:02 01/08/17 12:19 Dilaudid IVPUSH 0.5 mg Q1H PRN Administration Pain Sodium Chloride 1,000 mls @ 999 mls/hr 01/08/17 12:10 01/08/17 11:55 Normal Saline IV 01/08/17 13:10 999 mls/hr NOW STA Administration Morphine Sulfate 1 mg 01/08/17 18:51 01/08/17 19:28 Morphine IVPUSH 01/08/17 18:52 Not Given ONETIME ONE Nitroglycerin Confirm 01/08/17 11:50 01/08/17 12:18 Nitrostat Administered 01/08/17 11:51 Not Given Dose 0.8 mg .ROUTE .STK-MED ONE Nitroglycerin 0.4 mg 01/08/17 14:28 Nitrostat SL 01/08/17 14:39 Q5M PRN Chest Pain Departure - Departure Time of Disposition: 14:35 Disposition: Refer to Observation Clinical Impression: Chest pain Qualifiers: Chest pain type: unspecified Qualified Code(s): R07.9 - Chest pain, unspecified - My Orders Last 24 Hours: My Active Orders 01/08/17 11:46 Cardiac Monitoring [RC] Q8H Nitroglycerin [Nitrostat] 0.4 mg SL Q5M PRN Saline Lock Insert [OM.PC] Stat - Assessment/Plan Last 24 Hours: My Active Orders 01/08/17 11:46 Cardiac Monitoring [RC] Q8H Nitroglycerin [Nitrostat] 0.4 mg SL Q5M PRN Saline Lock Insert [OM.PC] Stat
[2017-01-08] MEDS ORDERED: HYDROmorphone 1 MG/ML Syringe IVPUSH PRN (12:02)
[2017-01-08] MEDS ORDERED: Sodium Chloride 0.9% 1,000 ML IV STA (12:10)
[2017-01-08 12:40] LABS: CHLORIDE,CL 105 mmol/L (98-110); SODIUM,NA 139 mmol/L (136-146)
[2017-01-08] MEDS ORDERED: Famotidine 20 MG/2 ML SDV IVPUSH ONE (12:52)
--- NOTE | 2017-01-08 13:11 | CR ---
EXAMINATION: Portable chest radiograph. HISTORY: Chest pain. Comparison: 12/01/2016. FINDINGS: The trachea is midline. The cardiomediastinal silhouette is within normal limits. No pulmonary infil trates, effusions or pneumothorax. Osseous structures appear unremarkable. IMPRESSION: No acute cardiopulmonary process.
--- NOTE | 2017-01-08 14:15 | PCM.HP ---
H&P History of Present Illness - General Date of Service: 01/08/17 Admit Problem/Dx: chest pain Source of Information: Patient History Limitations: Reports: No Limitations - History of Present Illness Initial Comments - Free Text/Narative: This 61 year old female with pmh of CAD with PCI x 14 and carotid stenosis, COPD , and diverticulosis s/p bowel resection with colostomy presented to the ED today with substernal chest pain. She reports this first came on yesterday at home, lasted for a few seconds. It was substernal and went straight to her back and L shoulder blade. She reported some disorientation with this pain and flushing, then it went away quickly. She was not doing any activity during this time. Then the pain came back today, twice within a short period of time, much like the previous episode the day before. She confirmed again some flushing, but no diaphoresis, N/V, left arm or jaw pain. She feels like her breathing is a lot better and has been good about doing her inhalers as prescribed. She was admitted 1 month ago for PNA and COPD exacerbation. During this time she also had some intermittent chest pain, troponins were negative and EKG negative for ST segment changes. At this time her pain is 1-2/10, she is very tearful while visiting in the ED room. She feels very overwhelmed. Wanting to speak with Dr. Watson fearing this is her heart. She had a Génesis scan November 13, 2016, which reported partially reversible perfusion defect from basal to mid inferior wall. She has been seeing Dr. Watson since. She reports increase in stress in her life and especially at work in the last 2- 3 weeks. She normally takes Xanax at bedtime, but has been taking this to deal with her boss as well, so now taking it BID. She was just seen by Dr. Baker , Neurology, January 06 2017 regarding headaches, MRI noted a cavernoma and Dr. Baker ordered further workup with MRA. She also has further studies with Dr. Watson, Cardiology as well all scheduled tomorrow, January 09 at noon. In the ED labwork WNL, troponin negative, EKG SR with no ST segment changes. She was treated with ASA, Nitro SL and Pepcid. Pain came down to a 1-2/10. I spoke with Dr. Watson regarding possible admission for chest pain rule out, he felt with negative troponin and no EKG changes she would be safe to rule out here. He did speak with Crystal and reassured her. He will recommends close follow up with him and to follow through with imaging tomorrow at noon when discharged. She will be admitted for chest pain r/o ACS. Middle Chest Pain Score (Numeric/FACES): 7 - Related Data Allergies/Adverse Reactions: Allergies Allergy/AdvReac Type Severity Reaction Status Date / Time levofloxacin [From Levaquin] Allergy Mild Rash Verified 12/01/16 20:05 Latex, Natural Rubber Allergy Rash Verified 12/01/16 20:05 penicillin Allergy Airway Verified 12/01/16 20:05 Tightness morphin Allergy Severe Hives Uncoded 12/01/16 20:05 Home Medications: Home Meds Aspirin [Halfprin] 81 mg PO BEDTIME 01/14/15 [History] Metoprolol Tartrate [Lopressor] 12.5 mg PO BID 01/14/15 [History] Prasugrel [Effient] 10 mg PO DAILY 01/14/15 [History] Rosuvastatin [Crestor] 40 mg PO DAILY 01/14/15 [History] Nitroglycerin 0.4 mg PO ASDIRECTED PRN 03/24/15 [History] [place]-3/DHA/Epa/Fish Oil [Fish Oil 1,000 mg Softgel] 2,000 mg PO BID 07/24/16 [ History] Albuterol/Ipratropium [DuoNeb 3.0-0.5 MG/3 ML] 3 ml NEB Q6HR PRN 30 Days [Rx] Sodium Chloride 0.9% 3 ml INH Q6H PRN 30 Days 07/28/16 [Rx] Fluticasone Propionate [Flonase] 1 gm NASBOTH DAILY 12/01/16 [History] ALPRAZolam [Alprazolam] 0.5 mg PO DAILY PRN 12/02/16 [History] Tiotropium [place] [Spiriva Respimat] 2.5 mcg IH DAILY 12/02/16 [History] Budesonide/Formoterol [Symbicort 160-4.5 MCG] 2 puff INH BID 01/08/17 [History] Cilostazol 100 mg PO BID 01/08/17 [History] Hydrocodone/Acetaminophen [Hydrocodon-Acetaminoph 7.5-325] 1 tab PO Q6H PRN [History] Losartan Potassium 25 mg DAILY 01/08/17 [History] Meloxicam 7.5 mg PO BID 01/08/17 [History] Methocarbamol [Robaxin] 750 mg PO TID PRN 01/08/17 [History] Nortriptyline 10 mg PO BEDTIME 01/08/17 [History] Ranolazine [Ranexa] 500 mg PO BID #60 tab.er 01/09/17 [Rx] Past Medical History - Past Health History Medical/Surgical History: Denies Medical/Surgical History HEENT History: Reports: Impaired Vision Cardiovascular History: Reports: CAD, Heart Murmur, High Cholesterol, Hypertension, Stents Respiratory History: Reports: Bronchitis, Recurrent, COPD Gastrointestinal History: Reports: Diverticulosis, GERD, Other (See Below) Other Gastrointestinal History: Diverticulitis Genitourinary History: Reports: Urinary Incontinence Other Genitourinary History: bladder sling 2009 [employer] History: Reports: Musculoskeletal History: Reports: None Other Musculoskeletal History: 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, fracture left ankle, fractured left middle finger Neurological History: Reports: None Other Neuro History: AVM right temporal Psychiatric History: Reports: Anxiety Endocrine/Metabolic History: Reports: Other (See Below) Other Endocrine/Metabolic History: borderline diabetic Hematologic History: Reports: Anemia, Iron Deficiency Immunologic History: Reports: None Oncologic (Cancer) History: Reports: None Dermatologic History: Reports: None - Infectious Disease History Infectious Disease History: Reports: Chicken Pox, Measles, MRSA - Past Surgical History Head Surgeries/Procedures: Reports: None HEENT Surgical History: Reports: None Cardiovascular Surgical History: Reports: Carotid Endarterectomy Respiratory Surgical History: Reports: None GI Surgical History: Reports: Appendectomy, Colostomy Female Surgical History: Reports: None Endocrine Surgical History: Reports: None Neurological Surgical History: Reports: None Musculoskeletal Surgical History: Reports: None Dermatological Surgical History: Reports: Plastic Surgical Reconstruction/Repair Social & Family History - Family History Family Medical History: Noncontributory HEENT: Reports: Glaucoma : Reports: Other (See Below) Other Family History: prostate cancer Neurological: Reports: CVA Endocrine/Metabolic: Reports: Diabetes, Type I Oncologic: Reports: Prostate, Skin - Tobacco Use Smoking Status *Q: Former Smoker Years of Tobacco use: 40 Packs/Tins Daily: 0.5 Used Tobacco, but Quit: Yes Month Tobacco Last Used: 2012 Second Hand Smoke Exposure: Yes - Caffeine Use Caffeine Use: Reports: Coffee Caffeine Use Comment: 1 cup daily - Alcohol Use Days Per Week of Alcohol Use: 2 Number of Drinks Per Day: 0 Total Drinks Per Week: 0 - Recreational Drug Use Recreational Drug Use: No - Living Situation & Occupation Occupation: Employed H&P Review of Systems - Review of Systems: Review Of Systems: See Below General: Reports: No Symptoms. Denies: Fever, Chills, Malaise, Weakness HEENT: Reports: No Symptoms, Glasses. Denies: Sinus Congestion, Sore Throat, Visual Changes Pulmonary: Denies: Shortness of Breath, Wheezing, Cough, Sputum Cardiovascular: Reports: Chest Pain (substernal, 1-08/01). Denies: Palpitations , Dyspnea on Exertion, Edema, Lightheadedness, Syncope Gastrointestinal: Reports: No Symptoms. Denies: Abdominal Pain, Black Stool, Bloody Stool, Nausea, Vomiting Genitourinary: Reports: No Symptoms. Denies: Dysuria, Frequency, Burning, Pain Musculoskeletal: Reports: No Symptoms. Denies: Neck Pain Skin: Reports: No Symptoms. Denies: Cyanosis, Bruising Psychiatric: Reports: Depression, Anxiety. Denies: Confusion, Suicidal Ideation Neurological: Reports: No Symptoms. Denies: Dizziness, Seizure, Trouble Speaking Hematologic/Lymphatic: Reports: No Symptoms Immunologic: Reports: No Symptoms Exam - Exam Exam: See Below - Vital Signs Vital Signs: Last Vital Signs Temp 98.0 F 01/08/17 11:52 Pulse 63 01/08/17 11:52 Resp 18 01/08/17 11:52 BP 111/65 01/08/17 12:18 Pulse Ox 92 L 01/08/17 11:52 Weight: 76.204 kg - Exam General: Alert, Oriented, Cooperative, Mild Distress (very tearful and crying heavily during interview due to fearfulness and stress as per patient report) HEENT: Conjunctiva Clear, Mucosa Moist & [place], Nares Patent, Pupils Equal Neck: Supple, Trachea Midline, +2 Carotid Pulse wo Bruit Lungs: Clear to Auscultation, Normal Respiratory Effort. No: Crackles, Wheezing Cardiovascular: Regular Rate, Regular Rhythm, Normal S1, Normal S2. No: Irregular Rhythm, Systolic Murmur GI/Abdominal Exam: Normal Bowel Sounds, Soft, Non-Tender, No Organomegaly, No Distention, No Abnormal Bruit, No Mass, Pelvis Stable, Other (colostomy to L quadrant, having issues with some constipation recently.) Back Exam: Normal Inspection, Full Range of Motion, NT Extremities: Normal Inspection, Normal Range of Motion, Non-Tender, No Pedal Edema Skin: Warm, Dry, Intact Neuro Extensive - Mental Status: Alert, Oriented x3, Normal Mood/Affect Neuro Extensive - Motor, Sensory, Reflexes: CN II-XII Intact, Normal Gait, Normal Reflexes Psychiatric: Alert, Normal Affect, Anxious (tearful) - Patient Data Result Diagrams: 01/08/17 11:54 01/08/17 11:54 EKG INTERPRETATION EKG Date: 01/08/17 Rhythm: NSR Rate (Beats/Min): 60 P-Wave: Present QRS: Normal ST-T: Normal QT: Normal Comparison: No Change *Q Meaningful Use (ADM) - VTE *Q VTE Criteria *Q: - VTE Risk Assess *Q Each Risk Factor Represents 1 Point: Abnormal Pulmonary Function (COPD) Total Score 1 Point Risk Factors: 1 Each Risk Factor Represents 2 Points: Age 60 - 74 Years Total Score 2 Point Risk Factors: 2 Each Risk Factor Represents 3 Points: None Total Score 3 Point Risk Factors: 0 Each Risk Factor Represents 5 Points: None Total Score 5 Point Risk Factors: 0 Venous Thromboembolism Risk Factor Score *Q: 3 - Stroke *Q Stroke Criteria *Q: - AMI *Q AMI Criteria *Q: - Problem List (1) Chest pain SNOMED Code(s): 77055824 ICD Code: R07.9 - CHEST PAIN, UNSPECIFIED Status: Acute Current Visit: Yes (2) Anxiety SNOMED Code(s): 74620058 ICD Code: F41.9 - ANXIETY DISORDER, UNSPECIFIED Status: Chronic Current Visit: No (3) CAD (coronary artery disease) SNOMED Code(s): 55669183 ICD Code: I25.10 - ATHSCL HEART DISEASE OF [place] CORONARY ARTERY W/O ANG PCTRS Status: Chronic Current Visit: No Qualifiers: Coronary Disease-Associated Artery/Lesion type: [place] artery [place] vs. transplanted heart: [place] heart Associated angina: without angina Qualified Code(s): I25.10 - Atherosclerotic heart disease of [place] coronary artery without angina pectoris (4) COPD (chronic obstructive pulmonary disease) SNOMED Code(s): 89382735 ICD Code: J44.9 - CHRONIC OBSTRUCTIVE PULMONARY DISEASE, UNSPECIFIED Status : Chronic Priority: High Current Visit: No Qualifiers: COPD type: chronic bronchitis Chronic bronchitis type: unspecified Qualified Code(s): J42 - Unspecified chronic bronchitis (5) HLD (hyperlipidemia) SNOMED Code(s): 13088809 ICD Code: E78.5 - HYPERLIPIDEMIA, UNSPECIFIED Status: Chronic Current Visit: No Qualifiers: Hyperlipidemia type: unspecified Qualified Code(s): E78.5 - Hyperlipidemia , unspecified (6) HTN (hypertension) SNOMED Code(s): 65445528 ICD Code: I10 - ESSENTIAL (PRIMARY) HYPERTENSION Status: Chronic Current Visit: No Qualifiers: Hypertension type: essential hypertension Qualified Code(s): I10 - Essential (primary) hypertension Problem List Initiated/Reviewed/Updated: Yes Orders Last 24hrs: Medication Orders Hydromorphone HCl (Dilaudid) 0.5 mg IVPUSH Q1H PRN PRN Reason: Pain Last Admin: 01/08/17 12:19 Dose: 0.5 mg Nitroglycerin (Nitrostat) 0.4 mg SL Q5M PRN PRN Reason: Chest Pain Stop: 01/09/17 11:47 Last Admin: 01/08/17 11:55 Dose: 0.4 mg Admin: 01/08/17 11:50 Dose: 0.4 mg Assessment/Plan Comment:: This 61 year old female admitted with chest pain with pmh of CAD and multiple stenting 1. Chest pain: Will trend cardiac enzymes, consulted Dr. Watson, I appreciated his assistance. Monitor on telemetry. If troponins remain negative and no EKG changes plan for discharge in am and to having imaging as ordered, per Dr. Watson's recommendations. 2. CAD: Continue ASA, Effient, Crestor. 3. HTN: Continue Metoprolol, Losartan. 4. COPD: Symbicort and Duonebs PRN 5. Anxiety: Xanax at bedtime VTE prophylaxis: Lovenox DISCHARGE PLAN Crystal was monitored overnight and troponins trended. Troponins remained negative x3 and repeat EKG this am continues to be SR no changes from previous EKGs and has no ST segment changes. She continued to have chest pressure with labile emotions. She feels she has been on a roller coaster of emotions the last 2-3 weeks. She is feeling very overwhelmed with her health. She stated "since the colostomy, my heart and now this in my brain, I just want to be healthy and enjoy life again." She was very tearful and crying again this morning. We discussed at length she may need more the Xanax to help with moods. She agrees with this and is agreeable to see Dr. Medina, her PCP and discuss an more [facility] anti-depressant and anxiolytic. She declines suicidal ideation. She just wants to be healthy and happy again. Along with her health, work is very stressful and most times she is unhappy at work and overwhelmed. Since troponins negative and EKG remains normal, ACS was ruled out. After discussion with Dr. Watson, Ranexa was started due to CAD. He will follow up with her next week. Chest pressure tends to come on when emotional. Anxiety and emotional stress likely cause of chest pressure, but due to significant cardiac history will keep close follow up with Dr. Watson. We will also arrange follow up with Dr. Medina early next week. She is to continue all home medications as previously prescribed, with the addition of Ranexa. She is to return to the ED or clinic if concerns should arise.
[2017-01-08] MEDS ORDERED: Albuterol/Ipratropium 3.0-0.5 MG/3 ML Neb Soln NEB PRN ×2 (14:23→19:23)
[2017-01-08] MEDS ORDERED: Acetaminophen 325 MG Tab PO PRN (14:23)
[2017-01-08] MEDS ORDERED: Ondansetron 4 MG/2 ML SDV IVPUSH PRN (14:23)
[2017-01-08] MEDS ORDERED: Nitroglycerin 0.4 MG Tab.SL SL PRN (14:28)
--- NOTE | 2017-01-08 14:49 | CONS ---
DATE OF CONSULTATION: 01/08/2017 DATE OF : 1955 PRIMARY CARE PHYSICIAN: None PCP REASON FOR CONSULTATION: Chest pain. HISTORY OF PRESENT ILLNESS: This is a 61-year-old female with history of hypertension; hyperlipidemia; diabetes; COPD; history of CAD, status post PCI x14; carotid stenosis, status post right carotid endarterectomy in 2012; and colostomy here admitted to the hospital because of the chest pain twice. She stated that she experienced chest pain yesterday, is lasting for a few seconds, is on the epigastric area and towards the central chest wall, retrosternal area. It was like a sharp heaviness and is radiating to her back. It has lasted for a few seconds and it was hurting like 8 or 9 from 10 pain scale and is gone by itself. No associated shortness of breath or dizziness, and today when she was at work she started having the same symptom of chest pain; however, she also experienced a shooting pain as well at the same area. She stated that her chest pain at this time seemed to be similar to the chest pain that she had when she had a heart attack and a heart stent in the past. EKG was done, there were no ST changes. No Q waves and troponin the 1st set was negative. When I talked to her, pain seemed to be subsided. She had Lexiscan done in October and it showed very mild reversible ischemia and I saw her in the outpatient clinic. We decided to do a medical management and here she is in the hospital. Her vital signs in the emergency room seemed to be stable with a blood pressure of 132/78 and heart rate of 63. PAST MEDICAL HISTORY: Include hypertension; hyperlipidemia; diabetes; COPD; CAD, status post PCI x14; carotid stenosis, status post right carotid endarterectomy; colostomy; and possible peripheral vascular disease. SOCIAL HISTORY: She denies smoking. Occasional drinking, but no drug use. FAMILY HISTORY: No family history of CAD, but her mother had a history of stroke. PAST SURGICAL HISTORY: Cardiac stent placement, hysterectomy, carotid endarterectomy, oophorectomy, appendectomy, and colostomy. REVIEW OF SYSTEMS: A 12-point review of systems has been negative except indicated in the HPI. PHYSICAL EXAMINATION: VITAL SIGNS: Blood pressure 132/78, heart rate of 63, temperature 36.7, O2 saturation 92% on room air. HEENT: Not pale. No jaundice. NECK: No JVD. HEART: Normal S1, S2. No murmur. LUNGS: Clear. No crackles. No wheezing. ABDOMEN: Soft, nontender. Bowel sounds are present. No hepatosplenomegaly. EXTREMITIES: Legs, no edema. INVESTIGATION: EKG, 12-lead; there are no ST changes, heart rate of 57, IL interval of 210 QTc 411, QRS duration 98. There is a Q-wave in lead [address] changes. LABORATORY DATA: CBC showed WBC 7, hematocrit 47, hemoglobin 15, platelets 222. Sodium 139, potassium 4.6, chloride 105, bicarb 25, BUN 10, creatinine 0.7. Troponin is less than 0.1. ASSESSMENT AND PLAN: This is a 61-year-old female with history of coronary artery disease, status post PCI; peripheral vascular disease; carotid endarterectomy; colostomy presented to the hospital with chest pain. She claimed that her chest pain seemed to be similar to the time that she had a heart attack; however, she also mentioned that like she has a lot of stress in work lately. She had been in distress. It could be related to anxiety as well. Because she has significant arthrosclerotic disease, I think she needs to be observed and admitted to the hospital for cardiac enzymes as well as repeat the EKG in the morning. If EKG and troponin have been negative, she should be able to be discharged and I will see her in the clinic. JANESSA GLEZ /[id number]
[2017-01-08] MEDS ORDERED: Morphine 2 MG/ML Syringe IVPUSH ONE (18:51)
[2017-01-08] MEDS ORDERED: HYDROmorphone 2 MG/ML Syringe IVPUSH PRN (19:09)
[2017-01-08] MEDS ORDERED: ALPRAZolam 0.5 MG Tab PO PRN (19:23)
[2017-01-08] MEDS ORDERED: Acetaminophen/HYDROcodone 325-7.5 MG Tab PO PRN (19:23)
[2017-01-08] MEDS: Metoprolol Tartrate 25 MG Tab PO SCH (20:12)
[2017-01-09] MEDS: CILOSTAZOL 100 MG PO SCH ×2 (07:26→08:18)
[2017-01-09] MEDS: FORMOTEROL INH SCH ×2 (07:31→08:18)
[2017-01-09] MEDS: BUDESONIDE INH SCH ×2 (07:31→08:18)
[2017-01-09] MEDS: Metoprolol Tartrate 25 MG Tab PO SCH (08:14)
[2017-01-09 08:16] VITALS: BP 101/55
[2017-01-09] MEDS ORDERED: Enoxaparin 40 MG/0.4 ML Syringe SUBCUT SCH (09:00)
[2017-01-09] MEDS ORDERED: Losartan 50 MG Tab PO SCH (09:00)
[2017-01-09] MEDS ORDERED: Rosuvastatin 10 MG Tab PO SCH (09:00)
== END 2017-01-09 09:50 | disposition home or self-care (01) ==
LOC: MW.ED 11:42 → MW.MS 13:56
PROVIDERS: ADMIT Internal Medicine; ATTEND Internal Medicine
DX: R07.9 Chest pain, unspecified (principal); F41.9 Anxiety disorder, unspecified; I25.10 Atherosclerotic heart disease of native coronary artery without angina pectoris; J42 Unspecified chronic bronchitis; E78.5 Hyperlipidemia, unspecified; K21.9 Gastro-esophageal reflux disease without esophagitis; E11.9 Type 2 diabetes mellitus without complications; I10 Essential (primary) hypertension; Z88.0 Allergy status to penicillin; Z88.1 Allergy status to other antibiotic agents; Z88.8 Allergy status to other drugs, medicaments and biological substances; Z91.040 Latex allergy status; Z79.82 Long term (current) use of aspirin; Z79.899 Other long term (current) drug therapy; Z90.49 Acquired absence of other specified parts of digestive tract; Z93.3 Colostomy status; Z98.890 Other specified postprocedural states; Z87.891 Personal history of nicotine dependence
CPT/HCPCS: 36415; 71010; 80053; 83690; 84484; 85025; 93005; 96361; 96374; 96375; 99285; A9270; J1170; J1650; J7040; 96372; 99284; G0378

== ENCOUNTER 2017-04-09 22:04 | Emergency (ER) | payer BC, MEDICARE, OTHER ==
[2017-04-09] MEDS ORDERED: Sodium Chloride 0.9% 1,000 ML IV ONE (22:17)
--- NOTE | 2017-04-09 22:20 | EDM.PDOC ---
ED HPI GENERAL MEDICAL PROBLEM - General Chief Complaint: Gastrointestinal Problem Stated Complaint: BOWELS Time Seen by Provider: 04/09/17 22:14 - History of Present Illness INITIAL COMMENTS - FREE TEXT/NARRATIVE: HISTORY AND PHYSICAL: History of present illness: Patient is 61-year-old female history of colostomy secondary colon resection for diverticular disease also has history of coronary disease presents with concern of constipation she's had poor colostomy output since this morning she had similar episode in the past she had associated crampy abdominal pain fever chills chest pain shortness breath or other concern Review of systems: As per history of present illness and below otherwise all systems reviewed and negative. Past medical history: As per history of present illness and as reviewed below otherwise noncontributory. Surgical history: As per history of present illness and as reviewed below otherwise noncontributory. Social history: No reported history of drug or alcohol abuse. Family history: As per history of present illness and as reviewed below otherwise noncontributory. Physical exam: HEENT: Atraumatic, normocephalic, pupils reactive, negative for conjunctival pallor or scleral icterus, mucous membranes moist, throat clear, neck supple, nontender, trachea midline. Lungs: Clear to auscultation, breath sounds equal bilaterally, chest nontender. Heart: S1S2, regular, negative for clicks, rubs, or JVD. Abdomen: Soft, nondistended, no localized tenderness colostomy noted with scant output. Negative for masses or hepatosplenomegaly. Negative for costovertebral tenderness. Pelvis: Stable nontender. Genitourinary: Deferred. Rectal: Deferred. Extremities: Atraumatic, negative for cords or calf pain. Neurovascular unremarkable. Neuro: Awake, alert, oriented. Cranial nerves II through XII unremarkable. Cerebellum unremarkable. Motor and sensory unremarkable throughout. Exam nonfocal. Diagnostics: CBC CMP chest x-ray EKG CT abdomen and pelvis Therapeutics: saline 1 L bolus Impression: #1 abdominal pain #2 history of diverticulitis with colon resection and secondary colostomy #3 history of coronary artery disease Definitive disposition and diagnosis as appropriate pending reevaluation and review of above. Lower Abdominal Pain Score (Numeric/FACES): 8 - Related Data Allergies Allergy/AdvReac Type Severity Reaction Status Date / Time levofloxacin [From Levaquin] Allergy Mild Rash Verified 04/09/17 22:10 Latex, Natural Rubber Allergy Rash Verified 04/09/17 22:10 penicillin Allergy Airway Verified 04/09/17 22:10 Tightness morphin Allergy Severe Hives Uncoded 04/09/17 22:10 Home Meds: Home Meds Aspirin [Halfprin] 81 mg PO BEDTIME 01/14/15 [History] Metoprolol Tartrate [Lopressor] 12.5 mg PO BID 01/14/15 [History] Prasugrel [Effient] 10 mg PO DAILY 01/14/15 [History] Rosuvastatin [Crestor] 40 mg PO DAILY 01/14/15 [History] Nitroglycerin 0.4 mg PO ASDIRECTED PRN 03/24/15 [History] [place]-3/DHA/Epa/Fish Oil [Fish Oil 1,000 mg Softgel] 2,000 mg PO BID 07/24/16 [ History] Albuterol/Ipratropium [DuoNeb 3.0-0.5 MG/3 ML] 3 ml NEB Q6HR PRN 30 Days neb [Rx] Sodium Chloride 0.9% 3 ml INH Q6H PRN 30 Days neb 07/28/16 [Rx] Fluticasone Propionate [Flonase] 1 gm NASBOTH DAILY 12/01/16 [History] ALPRAZolam [Alprazolam] 0.5 mg PO DAILY PRN 12/02/16 [History] Tiotropium [place] [Spiriva Respimat] 2.5 mcg IH DAILY 12/02/16 [History] Budesonide/Formoterol [Symbicort 160-4.5 MCG] 2 puff INH BID 01/08/17 [History] Cilostazol 100 mg PO BID 01/08/17 [History] Hydrocodone/Acetaminophen [Hydrocodon-Acetaminoph 7.5-325] 1 tab PO Q6H PRN [History] Losartan Potassium 25 mg DAILY 01/08/17 [History] Meloxicam 7.5 mg PO BID 01/08/17 [History] Methocarbamol [Robaxin] 750 mg PO TID PRN 01/08/17 [History] Nortriptyline 10 mg PO BEDTIME 01/08/17 [History] Ranolazine [Ranexa] 500 mg PO BID #60 tab.er 01/09/17 [Rx] Past Medical History - Past Health History Medical/Surgical History: Denies Medical/Surgical History HEENT History: Reports: Impaired Vision Cardiovascular History: Reports: CAD, Heart Murmur, High Cholesterol, Hypertension, Stents Other Cardiovascular History: hx of MRSA Respiratory History: Reports: Bronchitis, Recurrent, COPD Gastrointestinal History: Reports: Diverticulosis, GERD, Other (See Below) Other Gastrointestinal History: Diverticulitis Genitourinary History: Reports: Urinary Incontinence Other Genitourinary History: bladder sling 2009 [employer] History: Reports: Musculoskeletal History: Reports: None Other Musculoskeletal History: 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, fracture left ankle, fractured left middle finger Neurological History: Reports: None Other Neuro History: AVM right temporal Psychiatric History: Reports: Anxiety Endocrine/Metabolic History: Reports: Other (See Below) Other Endocrine/Metabolic History: borderline diabetic Hematologic History: Reports: Anemia, Iron Deficiency Immunologic History: Reports: None Oncologic (Cancer) History: Reports: None Dermatologic History: Reports: None - Infectious Disease History Infectious Disease History: Reports: Chicken Pox, Measles, MRSA - Past Surgical History Head Surgeries/Procedures: Reports: None HEENT Surgical History: Reports: None Cardiovascular Surgical History: Reports: Carotid Endarterectomy Respiratory Surgical History: Reports: None GI Surgical History: Reports: Appendectomy, Colostomy Female Surgical History: Reports: None Endocrine Surgical History: Reports: None Neurological Surgical History: Reports: None Musculoskeletal Surgical History: Reports: None Dermatological Surgical History: Reports: Plastic Surgical Reconstruction/Repair Social & Family History - Family History Family Medical History: Noncontributory HEENT: Reports: Glaucoma : Reports: Other (See Below) Other Family History: prostate cancer Neurological: Reports: CVA Endocrine/Metabolic: Reports: Diabetes, Type I Oncologic: Reports: Prostate, Skin - Tobacco Use Smoking Status *Q: Never Smoker Years of Tobacco use: 40 Packs/Tins Daily: 0.5 Used Tobacco, but Quit: Yes Month Tobacco Last Used: 2012 Second Hand Smoke Exposure: Yes - Caffeine Use Caffeine Use: Reports: Coffee Caffeine Use Comment: 1 cup daily - Alcohol Use Days Per Week of Alcohol Use: 2 Number of Drinks Per Day: 0 Total Drinks Per Week: 0 - Recreational Drug Use Recreational Drug Use: No - Living Situation & Occupation Occupation: Employed ED ROS GENERAL - Review of Systems Review Of Systems: ROS reveals no pertinent complaints other than HPI. ED EXAM, GENERAL - Physical Exam Exam: See Below (See dictation) Course - Vital Signs Last Recorded V/S: Last Vital Signs Temp 36.5 C 04/09/17 22:11 Pulse 85 04/09/17 22:11 Resp 16 04/09/17 22:11 BP 170/97 H 04/09/17 22:11 Pulse Ox 95 04/09/17 22:11 - Orders/Labs/Meds Orders: Active Orders 24 hr Category Date Time Status EKG 12 Lead [EKG Documentation Completion] [RC] STAT Care 04/09/17 22:17 Active Abdomen Pelvis wo Cont [CT] Stat Exams 04/09/17 22:16 Taken Chest 1V Frontal [CR] Stat Exams 04/09/17 22:17 Taken Labs: Laboratory Tests 04/09/17 04/09/17 Range/Units 22:24 22:24 WBC 10.42 (4.0-11.0) K/uL RBC 5.97 H (4.30-5.90) M/uL Hgb 18.3 H (12.0-16.0) g/dL Hct 54.2 H (36.0-46.0) % MCV 90.8 (80.0-98.0) fL MCH 30.7 (27.0-32.0) pg MCHC 33.8 (31.0-37.0) g/dL RDW Std Deviation 46.7 (28.0-62.0) fl RDW Coeff of [place] 14 (11.0-15.0) % Plt Count 174 (150-400) K/uL MPV 11.30 (7.40-12.00) fL Neut % (Auto) 63.5 (48.0-80.0) % Lymph % (Auto) 25.2 (16.0-40.0) % [place] % (Auto) 9.7 (0.0-15.0) % Eos % (Auto) 1.2 (0.0-7.0) % Baso % (Auto) 0.4 (0.0-1.5) % Neut # (Auto) 6.6 H (1.4-5.7) K/uL Lymph # (Auto) 2.6 H (0.6-2.4) K/uL [place] # (Auto) 1.0 H (0.0-0.8) K/uL Eos # (Auto) 0.1 (0.0-0.7) K/uL Baso # (Auto) 0.0 (0.0-0.1) K/uL Nucleated RBC % 0.0 /100WBC Nucleated RBCs # 0 K/uL Sodium 138 (136-146) mmol/L Potassium 4.0 (3.5-5.1) mmol/L Chloride 101 (98-110) mmol/L Carbon Dioxide 25 (21-31) mmol/L BUN 10 (6.0-23.0) mg/dL Creatinine 0.7 (0.6-1.5) mg/dL Est Cr Clr Drug Dosing TNP Estimated GFR (MDRD) > 60.0 ml/min Glucose 111 H (60-110) mg/dL Calcium 9.7 (8.8-10.8) mg/dL Total Bilirubin 0.5 (0.1-1.5) mg/dL AST 28 (5-40) IU/L ALT 39 (8-54) IU/L Alkaline Phosphatase 109 (40-150) Total Protein 7.4 (6.0-8.0) g/dL Albumin 4.1 (3.4-4.8) g/dL Globulin 3.3 (2.0-3.5) g/dL Albumin/Globulin Ratio 1.2 L (1.3-2.8) Meds: Medications Discontinued Medications Generic Name Dose Route Start Last Admin Trade Name Freq PRN Reason Stop Dose Admin Sodium Chloride 1,000 mls @ 999 mls/hr 04/09/17 22:17 04/09/17 22:25 Normal Saline IV 04/09/17 23:17 999 mls/hr .Bolus ONE Administration Departure - Departure Time of Disposition: 00:49 Disposition: Home, Self-Care 01 Condition: Good Clinical Impression: Abdominal pain - Discharge Information Referrals: PCP,None [Primary Care Provider] - Forms: ED Department Discharge Additional Instructions: The following information is given to patients seen in the emergency department who are being discharged to home. This information is to outline your options for follow-up care. We provide all patients seen in our emergency department with a follow-up referral. The need for follow-up, as well as the timing and circumstances, are variable depending upon the specifics of your emergency department visit. If you don't have a primary care physician on staff, we will provide you with a referral. We always advise you to contact your personal physician following an emergency department visit to inform them of the circumstance of the visit and for follow-up with them and/or the need for any referrals to a consulting specialist. The emergency department will also refer you to a specialist when appropriate. This referral assures that you have the opportunity for followup care with a specialist. All of these measure are taken in an effort to provide you with optimal care, which includes your followup. Under all circumstances we always encourage you to contact your private physician who remains a resource for coordinating your care. When calling for followup care, please make the office aware that this follow-up is from your recent emergency room visit. If for any reason you are refused follow-up, please contact the [facility] emergency department at and asked to speak to the emergency department charge nurse. Follow-up primary medical doctor 1-2 days return as needed as discussed - My Orders Last 24 Hours: My Active Orders 04/09/17 22:16 Abdomen Pelvis wo Cont [CT] Stat 04/09/17 22:17 EKG 12 Lead [EKG Documentation Completion] [RC] STAT Chest 1V Frontal [CR] Stat - Assessment/Plan Last 24 Hours: My Active Orders 04/09/17 22:16 Abdomen Pelvis wo Cont [CT] Stat 04/09/17 22:17 EKG 12 Lead [EKG Documentation Completion] [RC] STAT Chest 1V Frontal [CR] Stat
[2017-04-09 23:00] LABS: CHLORIDE,CL 101 mmol/L (98-110); SODIUM,NA 138 mmol/L (136-146)
[2017-04-10 01:08] VITALS: BP 105/70
--- NOTE | 2017-04-10 10:41 | CR ---
EXAM DATE: 04/09/17 PATIENT'S AGE: 61 Patient: OJANNA TANNER Facility: [place], [place] Site . Site : 1955 Study: XRay Chest [id number] 11:04:27 PM Ordering Physician: Doctor Iniguez Final Report: HISTORY: Shortness of breath and abdomen pain. FINDINGS: AP chest radiograph is compared with 08 January 2017. The cardiac silhouette is normal. Pulmonary vasculature is free of cephalization. No lobar consolidation or pleural effusion is seen. Cardiac apex is well defined. IMPRESSION: No acute cardiopulmonary disease. Dictated by Kelly Leigh MD @ 04/09/2017 11:19:54 PM Dictated by: Kelly Leigh MD @ 04/09/2017 23:20:24 (Electronic Signature) Report Signed by Proxy. [facility]
--- NOTE | 2017-04-10 10:47 | CT ---
EXAM DATE: 04/09/17 PATIENT'S AGE: 61 Patient: JOANNA TANNER Facility: [place], [place] Site . Site : 1955 Study: CT Abdomen/Pelvis [id number]/[id number] 11:52:54 PM Ordering Physician: Doctor Iniguez Final Report: INDICATION: Abdominal pain. No bowel movement for 4 days. History of colostomy in 2014. TECHNIQUE: CT abdomen and pelvis without contrast. COMPARISON: CTA study dated 01/09/2017. 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 Multiple surgical clips in the central pelvis. Bowel gas pattern nonobstructive. Lower chest: Unremarkable. Liver: Unremarkable. Spleen: Scattered coarse calcifications. Likely sequela from prior granulomatous infection. Pancreas: Unremarkable. Gallbladder and bile ducts: Unremarkable. Adrenal glands: Unremarkable. Kidneys: Unremarkable. No kidney or ureteral stones and no hydronephrosis. GI tract: The duodenum crosses midline. No abnormal dilatation of large or small bowel loops. Left lower lobe quadrant colostomy. Previously described eventration of the anterior abdominal wall, stable findings. Vascular structures: Limited evaluation without IV contrast. Moderate calcified plaque involving the abdominal aorta without aneurysmal dilatation. Normal orientation of SMA and SMV. Lymph nodes: Unremarkable. Miscellaneous: Unremarkable. No free air or significant free fluid. Pelvic Organs: Uterus not identified. Bladder unremarkable. No free pelvic fluid or mass. Bones: Unremarkable for age. IMPRESSION: 1. No acute abnormality. Left lower quadrant colostomy and lower anterior abdominal wall eventration, stable findings from 01/09/2017. No underlying bowel obstruction, free air, or free fluid. 2. No hydronephrosis, renal or ureteral calculi. Dictated by Luis Enrique Soria MD @ 04/10/2017 12:20:25 AM Dictated by: Luis Enrique Soria MD @ 04/10/2017 00:20:34 (Electronic Signature) Report Signed by Proxy. [facility]
== END 2017-04-10 01:07 | disposition home or self-care (01) ==
LOC: MW.ED 22:04
DX: R10.30 Lower abdominal pain, unspecified (principal); I25.10 Atherosclerotic heart disease of native coronary artery without angina pectoris; I10 Essential (primary) hypertension; Z88.1 Allergy status to other antibiotic agents; Z91.040 Latex allergy status; Z88.0 Allergy status to penicillin; Z88.5 Allergy status to narcotic agent; Z79.82 Long term (current) use of aspirin; Z79.899 Other long term (current) drug therapy; Z93.3 Colostomy status
CPT/HCPCS: 71010; 74176; 80053; 85025; 93005; 96360; 99285; J7040; 99283

== ENCOUNTER 2017-07-14 10:49 | Emergency (ER) | payer BC ==
[2017-07-14] MEDS ORDERED: Albuterol/Ipratropium 3.0-0.5 MG/3 ML Neb Soln NEB ONE (11:04)
[2017-07-14] MEDS ORDERED: Aspirin 81 MG Tab.Chew PO ONE (11:05)
--- NOTE | 2017-07-14 11:05 | EDM.PDOC ---
ED HPI GENERAL MEDICAL PROBLEM - General Stated Complaint: CHEST PAIN Time Seen by Provider: 07/14/17 11:04 Source of Information: Reports: Patient - History of Present Illness INITIAL COMMENTS - FREE TEXT/NARRATIVE: HISTORY AND PHYSICAL: History of present illness: [Patient presents for evaluation of chest pain from clinic, pain is been present for greater than 24 hours Chest significant cardiac history she presented for persistent cough, she's had previous CT with up to 14 stents However she has had a cough over the last week increasing in severity she has burning chest pain worsened by cough there is a reproducible component as palpation along the left sternal border does make increased pain exquisitely to 8 out of 10 however at rest it is a 2 out of 10 and dull. On palpation this is the same pain as she is complaining about there is also associated pain with movement of the left are there is no association shortness breath or diaphoresis no fever nausea vomiting chills sweats no headache dizziness or palpitation no bowel or urine symptoms ] Review of systems: As per history of present illness and below otherwise all systems reviewed and negative. Past medical history: As per history of present illness and as reviewed below otherwise noncontributory. Surgical history: As per history of present illness and as reviewed below otherwise noncontributory. Social history: No reported history of drug or alcohol abuse. Family history: As per history of present illness and as reviewed below otherwise noncontributory. Physical exam: HEENT: Atraumatic, normocephalic, pupils reactive, negative for conjunctival pallor or scleral icterus, mucous membranes moist, throat clear, neck supple, nontender, trachea midline. Lungs: Clear to auscultation, breath sounds equal bilaterally, chest nontender. Heart: S1S2, regular, negative for clicks, rubs, or JVD. Abdomen: Soft, nondistended, nontender. Negative for masses or hepatosplenomegaly. Negative for costovertebral tenderness. Pelvis: Stable nontender. Genitourinary: Deferred. Rectal: Deferred. Extremities: Atraumatic, negative for cords or calf pain. Neurovascular unremarkable. Neuro: Awake, alert, oriented. Cranial nerves II through XII unremarkable. Cerebellum unremarkable. Motor and sensory unremarkable throughout. Exam nonfocal. Diagnostics: [CBC CMP cardiac enzymes Chest EKG ] Therapeutics: [DuoNeb Nitroglycerin no improvement of pain with nitroglycerin Aspirin ]Z-Christian Phenergan with codeine Medrol Dosepak Patient has nebulizer at home albuterol nebs 4 times a day 7-10 days Along with other chronic medications Impression: [Acute bronchitis Reproducible chest wall pain Chronic history of baseline] Definitive disposition and diagnosis as appropriate pending reevaluation and review of above. Mid-Sternal Chest Pain Score (Numeric/FACES): 9 - Related Data Allergies Allergy/AdvReac Type Severity Reaction Status Date / Time levofloxacin [From Levaquin] Allergy Mild Rash Verified 04/09/17 22:10 Latex, Natural Rubber Allergy Rash Verified 04/09/17 22:10 penicillin Allergy Airway Verified 04/09/17 22:10 Tightness morphin Allergy Severe Hives Uncoded 04/09/17 22:10 Home Meds: Home Meds Aspirin [Halfprin] 81 mg PO BEDTIME 01/14/15 [History] Metoprolol Tartrate [Lopressor] 12.5 mg PO BID 01/14/15 [History] Prasugrel [Effient] 10 mg PO DAILY 01/14/15 [History] Rosuvastatin [Crestor] 40 mg PO DAILY 01/14/15 [History] Nitroglycerin 0.4 mg PO ASDIRECTED PRN 03/24/15 [History] [place]-3/DHA/Epa/Fish Oil [Fish Oil 1,000 mg Softgel] 2,000 mg PO BID 07/24/16 [ History] Albuterol/Ipratropium [DuoNeb 3.0-0.5 MG/3 ML] 3 ml NEB Q6HR PRN 30 Days neb [Rx] Sodium Chloride 0.9% 3 ml INH Q6H PRN 30 Days neb 07/28/16 [Rx] Fluticasone Propionate [Flonase] 1 gm NASBOTH DAILY 12/01/16 [History] ALPRAZolam [Alprazolam] 0.5 mg PO DAILY PRN 12/02/16 [History] Tiotropium [place] [Spiriva Respimat] 2.5 mcg IH DAILY 12/02/16 [History] Budesonide/Formoterol [Symbicort 160-4.5 MCG] 2 puff INH BID 01/08/17 [History] Cilostazol 100 mg PO BID 01/08/17 [History] Hydrocodone/Acetaminophen [Hydrocodon-Acetaminoph 7.5-325] 1 tab PO Q6H PRN [History] Losartan Potassium 25 mg DAILY 01/08/17 [History] Meloxicam 7.5 mg PO BID 01/08/17 [History] Methocarbamol [Robaxin] 750 mg PO TID PRN 01/08/17 [History] Nortriptyline 10 mg PO BEDTIME 01/08/17 [History] Ranolazine [Ranexa] 500 mg PO BID #60 tab.er 01/09/17 [Rx] Past Medical History - Past Health History Medical/Surgical History: Denies Medical/Surgical History HEENT History: Reports: Impaired Vision Cardiovascular History: Reports: CAD, Heart Murmur, High Cholesterol, Hypertension, Stents Other Cardiovascular History: hx of MRSA Respiratory History: Reports: Bronchitis, Recurrent, COPD Gastrointestinal History: Reports: Diverticulosis, GERD, Other (See Below) Other Gastrointestinal History: Diverticulitis Genitourinary History: Reports: Urinary Incontinence Other Genitourinary History: bladder sling 2009 [employer] History: Reports: Musculoskeletal History: Reports: None Other Musculoskeletal History: 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, fracture left ankle, fractured left middle finger Neurological History: Reports: None Other Neuro History: AVM right temporal Psychiatric History: Reports: Anxiety Endocrine/Metabolic History: Reports: Other (See Below) Other Endocrine/Metabolic History: borderline diabetic Hematologic History: Reports: Anemia, Iron Deficiency Immunologic History: Reports: None Oncologic (Cancer) History: Reports: None Dermatologic History: Reports: None - Infectious Disease History Infectious Disease History: Reports: Chicken Pox, Measles, MRSA - Past Surgical History Head Surgeries/Procedures: Reports: None HEENT Surgical History: Reports: None Cardiovascular Surgical History: Reports: Carotid Endarterectomy Respiratory Surgical History: Reports: None GI Surgical History: Reports: Appendectomy, Colostomy Female Surgical History: Reports: None Endocrine Surgical History: Reports: None Neurological Surgical History: Reports: None Musculoskeletal Surgical History: Reports: None Dermatological Surgical History: Reports: Plastic Surgical Reconstruction/Repair Social & Family History - Family History Family Medical History: Noncontributory HEENT: Reports: Glaucoma : Reports: Other (See Below) Other Family History: prostate cancer Neurological: Reports: CVA Endocrine/Metabolic: Reports: Diabetes, Type I Oncologic: Reports: Prostate, Skin - Tobacco Use Smoking Status *Q: Never Smoker Years of Tobacco use: 40 Packs/Tins Daily: 0.5 Used Tobacco, but Quit: Yes Month Tobacco Last Used: 2012 Second Hand Smoke Exposure: Yes - Caffeine Use Caffeine Use: Reports: Coffee Caffeine Use Comment: 1 cup daily - Alcohol Use Days Per Week of Alcohol Use: 2 Number of Drinks Per Day: 0 Total Drinks Per Week: 0 - Recreational Drug Use Recreational Drug Use: No - Living Situation & Occupation Occupation: Employed ED ROS GENERAL - Review of Systems Review Of Systems: ROS reveals no pertinent complaints other than HPI. ED EXAM, GENERAL - Physical Exam Exam: See Below Course - Vital Signs Last Recorded V/S: Last Vital Signs Temp 97.6 F 07/14/17 11:13 Pulse 81 07/14/17 11:13 Resp 20 07/14/17 11:13 BP 116/55 L 07/14/17 11:21 Pulse Ox 92 L 07/14/17 11:23 - Orders/Labs/Meds Orders: Active Orders 24 hr Category Date Time Status EKG Documentation Completion [RC] STAT Care 07/14/17 10:59 Active RT Aerosol Therapy [RC] ASDIRECTED Care 07/14/17 11:04 Active UA W/MICROSCOPIC [URIN] Stat Lab 07/14/17 10:59 Uncollected Labs: Laboratory Tests 07/14/17 07/14/17 07/14/17 Range/Units 11:00 11:00 11:00 WBC 8.11 (4.0-11.0) K/uL RBC 5.44 (4.30-5.90) M/uL Hgb 16.9 H (12.0-16.0) g/dL Hct 50.5 H (36.0-46.0) % MCV 92.8 (80.0-98.0) fL MCH 31.1 (27.0-32.0) pg MCHC 33.5 (31.0-37.0) g/dL RDW Std Deviation 49.3 (28.0-62.0) fl RDW Coeff of [place] 15 (11.0-15.0) % Plt Count 184 (150-400) K/uL MPV 10.50 (7.40-12.00) fL Neut % (Auto) 69.7 (48.0-80.0) % Lymph % (Auto) 21.0 (16.0-40.0) % [place] % (Auto) 7.9 (0.0-15.0) % Eos % (Auto) 1.0 (0.0-7.0) % Baso % (Auto) 0.4 (0.0-1.5) % Neut # (Auto) 5.7 (1.4-5.7) K/uL Lymph # (Auto) 1.7 (0.6-2.4) K/uL [place] # (Auto) 0.6 (0.0-0.8) K/uL Eos # (Auto) 0.1 (0.0-0.7) K/uL Baso # (Auto) 0.0 (0.0-0.1) K/uL Nucleated RBC % 0.0 /100WBC Nucleated RBCs # 0 K/uL Sodium 142 (136-146) mmol/L Potassium 4.1 (3.5-5.1) mmol/L Chloride 104 (98-110) mmol/L Carbon Dioxide 29 (21-31) mmol/L BUN 10 (6.0-23.0) mg/dL Creatinine 0.7 (0.6-1.5) mg/dL Est Cr Clr Drug Dosing 68.93 mL/min Estimated GFR (MDRD) > 60.0 ml/min Glucose 109 (60-110) mg/dL Calcium 9.7 (8.8-10.8) mg/dL Total Bilirubin 0.5 (0.1-1.5) mg/dL AST 25 (5-40) IU/L ALT 28 (8-54) IU/L Alkaline Phosphatase 106 (40-150) Creatine Kinase 77 (9-236) IU/L CK-MB (CK-2) 1.9 (0-6.6) ng/ml Troponin I < 0.10 (0.0-0.29) NG/ML Total Protein 7.0 (6.0-8.0) g/dL Albumin 4.2 (3.4-4.8) g/dL Globulin 2.8 (2.0-3.5) g/dL Albumin/Globulin Ratio 1.5 (1.3-2.8) Amylase 33 (10-90) U/L Lipase 37 (7-80) U/L Meds: Medications Discontinued Medications Generic Name Dose Route Start Last Admin Trade Name Johnq PRN Reason Stop Dose Admin Albuterol/Ipratropium 3 ml 07/14/17 11:04 07/14/17 11:27 Duoneb 3.0-0.5 Mg/3 Ml NEB 07/14/17 11:05 3 ml ONETIME ONE Administration Aspirin 324 mg 07/14/17 11:05 07/14/17 11:09 Aspirin PO 07/14/17 11:06 324 mg ONETIME ONE Administration Nitroglycerin 0.4 mg 07/14/17 11:04 07/14/17 11:21 Nitrostat SL 0.4 mg Q5M PRN Administration Chest Pain Pantoprazole Sodium 80 mg 07/14/17 11:31 07/14/17 11:55 Protonix Iv IVPUSH 07/14/17 11:32 80 mg .BOLUS ONE Administration Departure - Departure Time of Disposition: 12:16 Disposition: Home, Self-Care 01 Condition: Good Clinical Impression: Muscle spasm, Acute bronchitis - Discharge Information Referrals: PCP,None [Primary Care Provider] - Additional Instructions: The following information is given to patients seen in the emergency department who are being discharged to home. This information is to outline your options for follow-up care. We provide all patients seen in our emergency department with a follow-up referral. The need for follow-up, as well as the timing and circumstances, are variable depending upon the specifics of your emergency department visit. If you don't have a primary care physician on staff, we will provide you with a referral. We always advise you to contact your personal physician following an emergency department visit to inform them of the circumstance of the visit and for follow-up with them and/or the need for any referrals to a consulting specialist. The emergency department will also refer you to a specialist when appropriate. This referral assures that you have the opportunity for follow-up care with a specialist. All of these measure are taken in an effort to provide you with optimal care, which includes your follow-up. Under all circumstances we always encourage you to contact your private physician who remains a resource for coordinating your care. When calling for follow-up care, please make the office aware that this follow-up is from your recent emergency room visit. If for any reason you are refused follow-up, please contact the [facility] emergency department at and asked to speak to the emergency department charge nurse. - My Orders Last 24 Hours: My Active Orders 07/14/17 10:59 EKG Documentation Completion [RC] STAT UA W/MICROSCOPIC [URIN] Stat 07/14/17 11:04 RT Aerosol Therapy [RC] ASDIRECTED - Assessment/Plan Last 24 Hours: My Active Orders 07/14/17 10:59 EKG Documentation Completion [RC] STAT UA W/MICROSCOPIC [URIN] Stat 07/14/17 11:04 RT Aerosol Therapy [RC] ASDIRECTED
[2017-07-14] MEDS: Nitroglycerin 0.4 MG Tab.SL SL PRN ×3 (11:10→11:21)
[2017-07-14] MEDS ORDERED: Pantoprazole 40 MG Vial IVPUSH ONE (11:31)
[2017-07-14 11:34] LABS: CHLORIDE,CL 104 mmol/L (98-110); SODIUM,NA 142 mmol/L (136-146)
--- NOTE | 2017-07-14 11:40 | CR ---
EXAMINATION: Portable chest radiograph. HISTORY: Pain. FINDINGS: The trachea is midline. The cardiomediastinal silhouette is within normal limits. No pulmonary infilt rates, effusions or pneumothorax. Osseous structures appear unremarkable. IMPRESSION: No acute cardiopulmonary process.
[2017-07-14 12:30] VITALS: BP 116/67
== END 2017-07-14 12:28 | disposition home or self-care (01) ==
LOC: MW.ED 10:49
DX: J20.9 Acute bronchitis, unspecified (principal); M62.838 Other muscle spasm; I10 Essential (primary) hypertension; E78.00 Pure hypercholesterolemia, unspecified; K21.9 Gastro-esophageal reflux disease without esophagitis; Z88.0 Allergy status to penicillin; Z91.040 Latex allergy status; Z88.8 Allergy status to other drugs, medicaments and biological substances; Z88.5 Allergy status to narcotic agent; Z79.82 Long term (current) use of aspirin; Z79.899 Other long term (current) drug therapy
CPT/HCPCS: 36415; 71045; 80053; 82150; 82550; 82553; 83690; 84484; 85025; 87804; 93005; 94640; 96374; 99285; A9270; C9113; 99284

== ENCOUNTER 2017-10-01 20:14 | Observation (INO) | payer BC, MEDICARE ==
[2017-10-01] MEDS ORDERED: Morphine 4 MG/ML Syringe IVPUSH ONE (20:18)
[2017-10-01] MEDS ORDERED: Aspirin 81 MG Tab.Chew PO ONE (20:21)
--- NOTE | 2017-10-01 20:21 | EDM.PDOC ---
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 She rates this pain 8 out of 10 she has been on hydrocodone and clindamycin for this beginning day 4 of treatment. Patient has a history of angina and presents with chest pain/tightness which she stated was 8 out of 10 on arrival not associated with shortness of breath or diaphoresis however improved to resolved with 3 doses of sublingual nitroglycerin No fever nausea vomiting chills sweats no current chest pain shortness breath headache dizziness or palpitation no bowel or urine symptoms ] Review of systems: As per history of present illness and below otherwise all systems reviewed and negative. Past medical history: As per history of present illness and as reviewed below otherwise noncontributory. Surgical history: As per history of present illness and as reviewed below otherwise noncontributory. Social history: No reported history of drug or alcohol abuse. Family history: As per history of present illness and as reviewed below otherwise noncontributory. Physical exam: HEENT: Atraumatic, normocephalic, pupils reactive, negative for conjunctival pallor or scleral icterus, mucous membranes moist, throat clear, neck supple, nontender, trachea midline. Lungs: Clear to auscultation, breath sounds equal bilaterally, chest nontender. Heart: S1S2, regular, negative for clicks, rubs, or JVD. Abdomen: Soft, nondistended, nontender. Negative for masses or hepatosplenomegaly. Negative for costovertebral tenderness. Pelvis: Stable nontender. Genitourinary: Deferred. Rectal: Deferred. Extremities: Atraumatic, negative for cords or calf pain. Neurovascular unremarkable. Neuro: Awake, alert, oriented. Cranial nerves II through XII unremarkable. Cerebellum unremarkable. Motor and sensory unremarkable throughout. Exam nonfocal. Diagnostics: [CBC CMP UA troponin lipase EKG Chest 1 view ] Therapeutics: [ normal saline 1 25 mL per hour Morphine 2 mg IV-not provided due to allergy, patient has been provided Dilaudid in the past without reaction ] aspirin 324 mg chewable Nitroglycerin 0.4 sublingual every 5 minutes when necessary 3 Lopressor 5 mg IV Impression: Chest pain [ jaw pain ]/dental abscess none Definitive disposition and diagnosis as appropriate pending reevaluation and review of above. Chest Pain Score (Numeric/FACES): 10 Left Lower Tooth/Teeth Pain Score (Numeric/FACES): 10 - Related Data Allergies Allergy/AdvReac Type Severity Reaction Status Date / Time levofloxacin [From Levaquin] Allergy Mild Rash Verified 04/09/17 22:10 Latex, Natural Rubber Allergy Rash Verified 04/09/17 22:10 penicillin Allergy Airway Verified 04/09/17 22:10 Tightness morphin Allergy Severe Hives Uncoded 04/09/17 22:10 Home Meds: Home Meds Aspirin [Halfprin] 81 mg PO BEDTIME 01/14/15 [History] Metoprolol Tartrate [Lopressor] 12.5 mg PO BID 01/14/15 [History] Prasugrel [Effient] 10 mg PO DAILY 01/14/15 [History] Rosuvastatin [Crestor] 40 mg PO BEDTIME 01/14/15 [History] Nitroglycerin 0.4 mg PO .EVERY 5 MINUTES PRN 03/24/15 [History] [place]-3/DHA/Epa/Fish Oil [Fish Oil 1,000 mg Softgel] 1,000 mg PO DAILY 07/24/16 [History] Albuterol/Ipratropium [DuoNeb 3.0-0.5 MG/3 ML] 3 ml NEB Q6HR PRN 30 Days neb [Rx] ALPRAZolam [Alprazolam] 0.5 mg PO DAILY PRN 12/02/16 [History] Budesonide/Formoterol [Symbicort 160-4.5 MCG] 2 puff INH BID 01/08/17 [History] Losartan Potassium 25 mg PO DAILY 01/08/17 [History] Mecobal/Levomefolat Ca/B6 Phos [Foltanx Tablet] 1 tab PO BID 07/14/17 [History] Polyethylene Glycol 3350 [MiraLAX] 17 gm PO DAILY PRN 07/14/17 [History] Past Medical History - Past Health History Medical/Surgical History: Denies Medical/Surgical History HEENT History: Reports: Impaired Vision Cardiovascular History: Reports: CAD, Heart Murmur, High Cholesterol, Hypertension, Stents Other Cardiovascular History: hx of MRSA Respiratory History: Reports: Bronchitis, Recurrent, COPD Gastrointestinal History: Reports: Diverticulosis, GERD, Other (See Below) Other Gastrointestinal History: Diverticulitis Genitourinary History: Reports: Urinary Incontinence Other Genitourinary History: bladder sling 2009 [employer] TE[employer] History: Reports: Musculoskeletal History: Reports: None Other Musculoskeletal History: 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, fracture left ankle, fractured left middle finger Neurological History: Reports: None Other Neuro History: AVM right temporal Psychiatric History: Reports: Anxiety Endocrine/Metabolic History: Reports: Other (See Below) Other Endocrine/Metabolic History: borderline diabetic Hematologic History: Reports: Anemia, Iron Deficiency Immunologic History: Reports: None Oncologic (Cancer) History: Reports: None Dermatologic History: Reports: None - Infectious Disease History Infectious Disease History: Reports: Chicken Pox, Measles, MRSA - Past Surgical History Head Surgeries/Procedures: Reports: None HEENT Surgical History: Reports: None Cardiovascular Surgical History: Reports: Carotid Endarterectomy Respiratory Surgical History: Reports: None GI Surgical History: Reports: Appendectomy, Colostomy Female Surgical History: Reports: None Endocrine Surgical History: Reports: None Neurological Surgical History: Reports: None Musculoskeletal Surgical History: Reports: None Dermatological Surgical History: Reports: Plastic Surgical Reconstruction/Repair Social & Family History - Family History Family Medical History: Noncontributory HEENT: Reports: Glaucoma : Reports: Other (See Below) Other Family History: prostate cancer Neurological: Reports: CVA Endocrine/Metabolic: Reports: Diabetes, Type I Oncologic: Reports: Prostate, Skin - Tobacco Use Smoking Status *Q: Never Smoker Years of Tobacco use: 40 Packs/Tins Daily: 0.5 Used Tobacco, but Quit: Yes Month/Year Tobacco Last Used: 2012 Second Hand Smoke Exposure: Yes - Caffeine Use Caffeine Use: Reports: Coffee Caffeine Use Comment: 1 cup daily - Alcohol Use Days Per Week of Alcohol Use: 2 Number of Drinks Per Day: 0 Total Drinks Per Week: 0 - Recreational Drug Use Recreational Drug Use: No - Living Situation & Occupation Occupation: Employed ED ROS GENERAL - Review of Systems Review Of Systems: ROS reveals no pertinent complaints other than HPI. ED EXAM, GENERAL - Physical Exam Exam: See Below Course - Vital Signs Last Recorded V/S: Last Vital Signs Temp 97.3 F 10/01/17 20:24 Pulse 72 10/01/17 20:56 Resp 18 10/01/17 20:56 BP 147/76 H 10/01/17 20:56 Pulse Ox 92 L 10/01/17 20:56 - Orders/Labs/Meds Orders: Active Orders 24 hr Category Date Time Status EKG Documentation Completion [RC] STAT Care 10/01/17 20:19 Active Chest 1V Frontal [CR] Stat Exams 10/01/17 20:24 Taken UA W/MICROSCOPIC [URIN] Stat Lab 10/01/17 20:18 Ordered Sodium Chloride 0.9% [Normal Saline] 1,000 ml Med 10/01/17 20:30 Active IV STAT Medication Orders Sodium Chloride (Normal Saline) 1,000 mls @ 125 mls/hr IV STAT JENNIFER Last Admin: 10/01/17 20:29 Dose: 125 mls/hr Labs: Laboratory Tests 10/01/17 10/01/17 Range/Units 20:18 20:18 WBC 8.40 (4.0-11.0) K/uL RBC 5.65 (4.30-5.90) M/uL Hgb 17.6 H (12.0-16.0) g/dL Hct 51.8 H (36.0-46.0) % MCV 91.7 (80.0-98.0) fL MCH 31.2 (27.0-32.0) pg MCHC 34.0 (31.0-37.0) g/dL RDW Std Deviation 45.8 (28.0-62.0) fl RDW Coeff of [place] 14 (11.0-15.0) % Plt Count 180 (150-400) K/uL MPV 10.60 (7.40-12.00) fL Neut % (Auto) 59.0 (48.0-80.0) % Lymph % (Auto) 30.0 (16.0-40.0) % [place] % (Auto) 8.8 (0.0-15.0) % Eos % (Auto) 1.8 (0.0-7.0) % Baso % (Auto) 0.4 (0.0-1.5) % Neut # (Auto) 5.0 (1.4-5.7) K/uL Lymph # (Auto) 2.5 H (0.6-2.4) K/uL [place] # (Auto) 0.7 (0.0-0.8) K/uL Eos # (Auto) 0.2 (0.0-0.7) K/uL Baso # (Auto) 0.0 (0.0-0.1) K/uL Nucleated RBC % 0.0 /100WBC Nucleated RBCs # 0 K/uL Sodium 140 (136-145) mmol/L Potassium 3.8 (3.5-5.1) mmol/L Chloride 102 (98-107) mmol/L Carbon Dioxide 30.0 (21.0-32.0) mmol/L BUN 9 (7.0-18.0) mg/dL Creatinine 0.7 (0.6-1.0) mg/dL Est Cr Clr Drug Dosing 68.93 mL/min Estimated GFR (MDRD) > 60.0 ml/min Glucose 110 H (74-106) mg/dL Calcium 9.6 (8.5-10.1) mg/dL Total Bilirubin 0.4 (0.2-1.0) mg/dL AST 22 (15-37) IU/L ALT 27 (14-63) IU/L Alkaline Phosphatase 106 (46-116) U/L Troponin I < 0.050 (0.000-0.056) ng/mL Total Protein 7.6 (6.4-8.2) g/dL Albumin 3.8 (3.4-5.0) g/dL Globulin 3.8 H (2.0-3.5) g/dL Albumin/Globulin Ratio 1.0 L (1.3-2.8) Lipase 154 (73-393) U/L Meds: Medications Generic Name Dose Route Start Last Admin Trade Name Freq PRN Reason Stop Dose Admin Sodium Chloride 1,000 mls @ 125 mls/hr 10/01/17 20:30 10/01/17 20:29 Normal Saline IV 125 mls/hr STAT JENNIFER Administration Discontinued Medications Generic Name Dose Route Start Last Admin Trade Name Freq PRN Reason Stop Dose Admin Aspirin 324 mg 10/01/17 20:21 10/01/17 20:30 Aspirin PO 10/01/17 20:22 324 mg ONETIME ONE Administration Hydromorphone HCl 1 mg 10/01/17 20:38 10/01/17 20:44 Dilaudid IVPUSH 10/01/17 20:39 1 mg ONETIME ONE Administration Metoprolol Tartrate 5 mg 10/01/17 21:35 Lopressor IVPUSH 10/01/17 21:36 NOW STA Morphine Sulfate 2 mg 10/01/17 20:18 10/01/17 20:34 Morphine IVPUSH 10/01/17 20:19 Not Given ONETIME ONE Nitroglycerin 0.4 mg 10/01/17 20:23 10/01/17 20:41 Nitrostat SL 0.4 mg Q5M PRN Administration Chest Pain Departure - Departure Time of Disposition: 21:47 Disposition: Refer to Observation Condition: Fair Clinical Impression: Chest pain Qualifiers: Chest pain type: unspecified Qualified Code(s): R07.9 - Chest pain, unspecified - Discharge Information Referrals: PCP,None [Primary Care Provider] - - My Orders Last 24 Hours: My Active Orders 10/01/17 20:18 UA W/MICROSCOPIC [URIN] Stat 10/01/17 20:19 EKG Documentation Completion [RC] STAT 10/01/17 20:24 Chest 1V Frontal [CR] Stat 10/01/17 20:30 Sodium Chloride 0.9% [Normal Saline] 1,000 ml IV STAT - Assessment/Plan Last 24 Hours: My Active Orders 10/01/17 20:18 UA W/MICROSCOPIC [URIN] Stat 10/01/17 20:19 EKG Documentation Completion [RC] STAT 10/01/17 20:24 Chest 1V Frontal [CR] Stat 10/01/17 20:30 Sodium Chloride 0.9% [Normal Saline] 1,000 ml IV STAT
[2017-10-01] MEDS: Sodium Chloride 0.9% 1,000 ML IV SCH (20:29)
[2017-10-01] MEDS: Nitroglycerin 0.4 MG Tab.SL SL PRN ×3 (20:31→20:41)
[2017-10-01] MEDS ORDERED: HYDROmorphone 2 MG/ML SDV IVPUSH ONE (20:38)
[2017-10-01 21:16] LABS: CHLORIDE,CL 102 mmol/L (98-107); SODIUM,NA 140 mmol/L (136-145)
[2017-10-01] MEDS ORDERED: Metoprolol Tartrate 5 MG/5 ML SDV IVPUSH STA (21:35)
[2017-10-02] MEDS ORDERED: Morphine 10 MG/ML Syringe IVPUSH PRN
[2017-10-02] MEDS ORDERED: Acetaminophen 325 MG Tab PO PRN
[2017-10-02] MEDS ORDERED: ALPRAZolam 0.5 MG Tab PO PRN (00:04)
[2017-10-02] MEDS ORDERED: Albuterol/Ipratropium 3.0-0.5 MG/3 ML Neb Soln NEB PRN (00:04)
[2017-10-02] MEDS ORDERED: Nitroglycerin 0.4 MG Tab.SL SL PRN (00:04)
[2017-10-02] MEDS ORDERED: Polyethylene Glycol 3350 Powder 17 GM Packet PO PRN (00:04)
[2017-10-02] MEDS ORDERED: Acetaminophen/HYDROcodone 325-5 MG Tab PO PRN (00:52)
[2017-10-02] MEDS: HYDROmorphone 1 MG/ML Syringe IVPUSH PRN ×3 (01:38→09:29)
[2017-10-02] MEDS: Sodium Chloride 0.9% 1,000 ML IV SCH (04:30)
[2017-10-02] MEDS ORDERED: Non-Formulary Medication 1 Each (Hydrocodone/Acetaminophen 1 TAB) PO SCH (06:00)
[2017-10-02 08:49] VITALS: BP 116/52
[2017-10-02] MEDS ORDERED: FOLTANX PO SCH (09:00)
[2017-10-02] MEDS ORDERED: Metoprolol Tartrate 25 MG Tab PO SCH (09:00)
[2017-10-02] MEDS ORDERED: Losartan 50 MG Tab PO SCH (09:00)
[2017-10-02] MEDS ORDERED: Fish Oil/Omega-3 Fatty Acids 1 Gm Cap PO SCH (09:00)
[2017-10-02] MEDS ORDERED: SYMBICORT 160/4.5 INH SCH (09:00)
[2017-10-02] MEDS ORDERED: EFFIENT 10 MG PO SCH (09:00)
--- NOTE | 2017-10-02 14:44 | CR ---
EXAM DATE: 10/01/17 PATIENT'S AGE: 62 Patient: JOANNA TANNER Facility: [place], [place] Site . Site : [id number] Study: XRay Chest [id number]/12/2018 8:35:41 PM Ordering Physician: Maldonado Weems Final Report: HISTORY: Chest pain. FINDINGS: AP portable chest radiograph is compared with 14 July 2017. EKG leads overlie the thorax. The cardiac silhouette is normal. Pulmonary vasculature is free of cephalization. No consolidation or pleural effusion is seen. IMPRESSION: No acute cardiopulmonary disease. Dictated by Kelly Leigh MD @ 10/01/2017 8:44:56 PM Dictated by: Kelly Leigh MD @ 10/01/2017 20:46:32 (Electronic Signature) Report Signed by Proxy. [facility]
[2017-10-02] MEDS ORDERED: Aspirin 81 MG Tab.EC PO SCH (21:00)
[2017-10-02] MEDS ORDERED: Rosuvastatin 10 MG Tab PO SCH (21:00)
--- NOTE | 2017-10-19 14:18 | PCM.HP ---
<ClintonLorenzo - Last Filed: 10/19/17 14:12> H&P History of Present Illness - General Date of Service: 10/19/17 Admit Problem/Dx: chest pain Source of Information: Patient History Limitations: Reports: No Limitations - History of Present Illness Initial Comments - Free Text/Narative: 62-year-old female that is being admitted with chest pain. Patient notes that she began to experience chest pain that radiated to the jaw and was rated as 8 out of 10. Patient does have a history of angina. She did not have any shortness of breath or diaphoresis associated with the chest pain. She also notes that she has a dental abscess on the left side of her mouth which she is currently taking hydrocodone and clindamycin. She is on day 4 of these medications. She is scheduled to see an oral surgeon this upcoming Thursday for further evaluation. While in the ER, the patient was given 3 sublingual nitroglycerin which resolved her chest pain. ER course: CBC shows a normal white blood cell count but an elevated hemoglobin at 17.6. Initial troponin was unremarkable. Lipase, CMP, urinalysis and chest x-ray were all unremarkable. Patient was admitted for observation and ACS rule out. Chest Pain Score (Numeric/FACES): 4 Left Lower Tooth/Teeth Pain Score (Numeric/FACES): 8 - Related Data Allergies/Adverse Reactions: Allergies Allergy/AdvReac Type Severity Reaction Status Date / Time levofloxacin [From Levaquin] Allergy Mild Rash Verified 10/01/17 23:06 Latex, Natural Rubber Allergy Rash Verified 04/09/17 22:10 penicillin Allergy Airway Verified 04/09/17 22:10 Tightness morphin Allergy Severe Hives Uncoded 04/09/17 22:10 Home Medications: Home Meds Aspirin [Halfprin] 81 mg PO BEDTIME 01/14/15 [History] Metoprolol Tartrate [Lopressor] 12.5 mg PO BID 01/14/15 [History] Prasugrel [Effient] 10 mg PO DAILY 01/14/15 [History] Rosuvastatin [Crestor] 40 mg PO BEDTIME 01/14/15 [History] Nitroglycerin 0.4 mg PO .EVERY 5 MINUTES PRN 03/24/15 [History] [place]-3/DHA/Epa/Fish Oil [Fish Oil 1,000 mg Softgel] 1,000 mg PO DAILY 07/24/16 [History] Albuterol/Ipratropium [DuoNeb 3.0-0.5 MG/3 ML] 3 ml NEB Q6HR PRN 30 Days neb [Rx] ALPRAZolam [Alprazolam] 0.5 mg PO DAILY PRN 12/02/16 [History] Budesonide/Formoterol [Symbicort 160-4.5 MCG] 2 puff INH BID 01/08/17 [History] Losartan Potassium 25 mg PO DAILY 01/08/17 [History] Mecobal/Levomefolat Ca/B6 Phos [Foltanx Tablet] 1 tab PO BID 07/14/17 [History] Polyethylene Glycol 3350 [MiraLAX] 17 gm PO DAILY PRN 07/14/17 [History] Hydrocodone/Acetaminophen [Hydrocodon-Acetaminophen 5-325] 1 tab PO TID PRN 06/08 [History] Clindamycin HCl 10/02/17 [History] Past Medical History - Past Health History Medical/Surgical History: Denies Medical/Surgical History HEENT History: Reports: Impaired Vision Cardiovascular History: Reports: CAD, Heart Murmur, High Cholesterol, Hypertension, Stents Other Cardiovascular History: hx of MRSA Respiratory History: Reports: Bronchitis, Recurrent, COPD Gastrointestinal History: Reports: Diverticulosis, GERD, Other (See Below) Other Gastrointestinal History: Diverticulitis Genitourinary History: Reports: Urinary Incontinence Other Genitourinary History: bladder sling 2009 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: Musculoskeletal History: Reports: None Other Musculoskeletal History: 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, fracture left ankle, fractured left middle finger Neurological History: Reports: None Other Neuro History: AVM right temporal Psychiatric History: Reports: Anxiety Endocrine/Metabolic History: Reports: Other (See Below) Other Endocrine/Metabolic History: borderline diabetic Hematologic History: Reports: Anemia, Iron Deficiency Immunologic History: Reports: None Oncologic (Cancer) History: Reports: None Dermatologic History: Reports: None - Infectious Disease History Infectious Disease History: Reports: Chicken Pox, Measles, MRSA - Past Surgical History Head Surgeries/Procedures: Reports: None HEENT Surgical History: Reports: None Cardiovascular Surgical History: Reports: Carotid Endarterectomy Respiratory Surgical History: Reports: None GI Surgical History: Reports: Appendectomy, Colostomy Female Surgical History: Reports: None Endocrine Surgical History: Reports: None Neurological Surgical History: Reports: None Musculoskeletal Surgical History: Reports: None Dermatological Surgical History: Reports: Plastic Surgical Reconstruction/Repair Social & Family History - Family History Family Medical History: Noncontributory HEENT: Reports: Glaucoma : Reports: Other (See Below) Other Family History: prostate cancer Neurological: Reports: CVA Endocrine/Metabolic: Reports: Diabetes, Type I Oncologic: Reports: Prostate, Skin - Tobacco Use Smoking Status *Q: Former Smoker Years of Tobacco use: 40 Packs/Tins Daily: 0.5 Used Tobacco, but Quit: Yes Month/Year Tobacco Last Used: 2013 Second Hand Smoke Exposure: No - Caffeine Use Caffeine Use: Reports: Coffee Caffeine Use Comment: 1 cup daily - Alcohol Use Days Per Week of Alcohol Use: 2 Number of Drinks Per Day: 0 Total Drinks Per Week: 0 - Recreational Drug Use Recreational Drug Use: No - Living Situation & Occupation Occupation: Employed H&P Review of Systems - Review of Systems: Review Of Systems: See Below General: Reports: No Symptoms HEENT: Reports: Other (Tooth pain on the left side of her mouth secondary to dental abscess.) Pulmonary: Reports: No Symptoms Cardiovascular: Reports: Chest Pain (Result with 3 sublingual nitroglycerin in the ER.) Gastrointestinal: Reports: No Symptoms Genitourinary: Reports: No Symptoms Musculoskeletal: Reports: No Symptoms Skin: Reports: No Symptoms Psychiatric: Reports: No Symptoms Neurological: Reports: No Symptoms Hematologic/Lymphatic: Reports: No Symptoms Immunologic: Reports: No Symptoms Exam - Exam Exam: See Below - Vital Signs Vital Signs: Last Vital Signs Temp 97.4 F 10/02/17 08:00 Pulse 71 10/02/17 08:48 Resp 18 10/02/17 08:00 BP 116/52 L 10/02/17 08:48 Pulse Ox 92 L 10/02/17 08:00 Weight: 79 kg - Exam General: Alert, Oriented, Cooperative HEENT: Conjunctiva Clear, EACs Clear, EOMI, Hearing Intact, Mucosa Moist & [place] , Nares Patent, Normal Nasal Septum, Posterior Pharynx Clear Neck: Supple, Trachea Midline, 2 Lungs: Clear to Auscultation, Normal Respiratory Effort Cardiovascular: Regular Rate, Regular Rhythm GI/Abdominal Exam: Normal Bowel Sounds, Soft, Non-Tender, No Organomegaly, No Distention, No Abnormal Bruit, No Mass, Pelvis Stable (Female) Exam: Normal External Exam, Normal Speculum Exam, Normal Bimanual Exam Extremities: Normal Inspection, Normal Range of Motion, Non-Tender, No Pedal Edema, Normal Capillary Refill Peripheral Pulses: 2+: Radial (L), Radial (R), Posterior Tibial (L), Posterior Tibial (R) Skin: Warm, Dry, Intact Neuro Extensive - Mental Status: Alert, Oriented x3, Normal Mood/Affect, Normal Cognition Psychiatric: Alert, Normal Affect, Normal Mood - Patient Data Result Diagrams: 10/01/17 20:18 10/01/17 20:18 - Problem List (1) Dental abscess SNOMED Code(s): 520480647 ICD Code: K04.7 - PERIAPICAL ABSCESS WITHOUT SINUS Status: Acute (2) Atypical chest pain SNOMED Code(s): 013376780 ICD Code: R07.89 - OTHER CHEST PAIN Status: Acute Problem List Initiated/Reviewed/Updated: Yes Assessment/Plan Comment:: 62-year-old female that was admitted with chest pain. #1. Chest pain: -Serial troponins 3 were negative. -Telemetry showed normal sinus rhythm with primary AV block with a heart rate between 46-80. -Patient did not require any additional interventions for her chest pain while admitted. #2. Dental abscess: -Patient was continued on her clindamycin and hydrocodone as prescribed by the orthodontic surgeon that she will see on Thursday. Please note that the patient was admitted and discharged within the same 24- hour period. This note will be both her H&P and discharge summary. Discharge plan: -Patient will continue with the clindamycin and hydrocodone for her dental abscess. -All home medications were resumed. -Patient has a follow-up appointment with her PCP, Dr. Medina. <Jaylon Gallardo - Last Filed: 10/22/17 11:10> H&P History of Present Illness - General Admit Problem/Dx: Admission Diagnosis/Problem Admission Diagnosis/Problem Chest pain Exam - Vital Signs Vital Signs: Last Vital Signs Temp 36.3 C 10/02/17 08:00 Pulse 71 10/02/17 08:48 Resp 18 10/02/17 08:00 BP 116/52 L 10/02/17 08:48 Pulse Ox 92 L 10/02/17 08:00 - Patient Data Result Diagrams: 10/01/17 20:18 10/01/17 20:18 - Free Text/Narrative Note: I have examined the patient. I have discussed findings and treatment plan with the resident. I agree with the assessment and plan outlined in the following resident's note.
== END 2017-10-02 11:15 | disposition home or self-care (01) ==
LOC: MW.ED 20:14 → MW.MS 21:49
PROVIDERS: ADMIT Internal Medicine; ATTEND Internal Medicine
DX: R07.89 Other chest pain (principal); K04.7 Periapical abscess without sinus; I25.10 Atherosclerotic heart disease of native coronary artery without angina pectoris; I10 Essential (primary) hypertension; E78.00 Pure hypercholesterolemia, unspecified; J44.9 Chronic obstructive pulmonary disease, unspecified; K21.9 Gastro-esophageal reflux disease without esophagitis; F41.9 Anxiety disorder, unspecified; E11.9 Type 2 diabetes mellitus without complications; Z88.1 Allergy status to other antibiotic agents; Z88.0 Allergy status to penicillin; Z88.8 Allergy status to other drugs, medicaments and biological substances; Z91.040 Latex allergy status; Z79.82 Long term (current) use of aspirin; Z79.2 Long term (current) use of antibiotics; Z79.899 Other long term (current) drug therapy; Z87.891 Personal history of nicotine dependence
CPT/HCPCS: 36415; 71045; 80053; 81001; 83690; 84484; 85025; 93005; 96361; 96374; 96376; 99285; A9270; G0378; J1170; J7040; 99284

== ENCOUNTER 2018-03-03 18:06 | Emergency (ER) | payer BC, MEDICARE ==
--- NOTE | 2018-03-03 18:59 | EDM.PDOC ---
ED HPI GENERAL MEDICAL PROBLEM - General Chief Complaint: Lower Extremity Injury/Pain Stated Complaint: PT RT FOOT SWOLLEN Time Seen by Provider: 03/03/18 18:59 Source of Information: Reports: Patient History Limitations: Reports: No Limitations - History of Present Illness INITIAL COMMENTS - FREE TEXT/NARRATIVE: HISTORY AND PHYSICAL: []62-year-old presents for reevaluation of her right posterior foot and ankle History of Present Illness: []She was treated for days ago for cellulitis states that this is not improving and her foot is not swollen Review of Systems: As per history of present illness and below otherwise all systems reviewed and negative. Past medical history: As per history of present illness and as reviewed below otherwise noncontributory. Surgical history: As per history of present illness and as reviewed below otherwise noncontributory. Social history: No reported history of drug or alcohol abuse. Family history: As per history of present illness and as reviewed below otherwise noncontributory. Physical exam: Alert and oriented female answering questions appropriately in full sentences without any shortness of breath. HEENT: Atraumatic, normocehpalic, pupils reactive, negative for conjunctival pallor or scleral icterus, mucous membranes moist, throat clear, neck supple, nontender, trachea midline. Lungs: Clear to auscultation, breath sounds equal bilaterally, chest non tender. Heart: S1S2, regular, negative for clicks, rubs, or JVD. Abdomen: Soft, nondistended, nontender. Negative for masses or hepatossplenmegaly. Negative for costovertebral tenderness. Pelvis: Stable nontender. Genitourinary: Deferred. Rectal: Deferred Extremities: There is erythema and edema to the posterior right foot, negative for cords or calf pain. Pulses are palpable tender via myosin IV Neurovascular unremarkable. Neuro: Awake, alert, oriented. Cranial nerves II through XII unremarkable. Cerebellum unremarkable. Motor and sensory unremarkable throughout. Exam nonfocal. Discussed with the patient her lab results. Patient verbalizes understanding L questions were answered Diagnostics: []CBC CMP Therapeutics: []Clindamycin IV Impression: []Cellulitis Plan: []Discharge Bactrim DS Oral clindamycin Follow-up with your primary care in 2 days Return to emergency room as directed Definitive disposition and diagnosis as appropriate pending reevaluation and review of above. Onset: Gradual Duration: Day(s):, Getting Worse Location: Reports: Lower Extremity, Right Quality: Reports: Ache Severity: Moderate Improves with: Reports: None Worsens with: Reports: None Associated Symptoms: Reports: No Other Symptoms Right Ankle Pain Score (Numeric/FACES): 10 - Related Data Allergies Allergy/AdvReac Type Severity Reaction Status Date / Time levofloxacin [From Levaquin] Allergy Mild Rash Verified 03/03/18 18:20 Latex, Natural Rubber Allergy Rash Verified 03/03/18 18:20 penicillin Allergy Airway Verified 03/03/18 18:20 Tightness morphin Allergy Severe Hives Uncoded 03/03/18 18:20 Home Meds: Home Meds ALPRAZolam [Alprazolam] 0.5 tab PO DAILY PRN 01/14/18 [History] Metoprolol Tartrate 25 mg PO DAILY 01/14/18 [History] Prasugrel HCl [Effient] 10 mg PO DAILY 01/14/18 [History] Rosuvastatin [Crestor] 40 mg PO DAILY 01/14/18 [History] Budesonide/Formoterol Fumarate [Symbicort 160-4.5 Mcg Inhaler] 2 puff IH BID PRN 01/16/18 [History] Cephalexin [Keflex] 500 mg PO BID #4 capsule 01/16/18 [Rx] Cyclobenzaprine [Flexeril] 10 mg PO TID PRN #90 tablet 01/16/18 [Rx] Tiotropium [place] [Spiriva Respimat] 2.5 mcg IH DAILY PRN 01/16/18 [History] traMADol [Ultram] 50 mg PO Q4H PRN #40 tablet 01/16/18 [Rx] Cephalexin [Keflex] 500 mg PO BID #20 capsule 02/26/18 [Rx] Clindamycin HCl 300 mg PO Q6HR #28 capsule 03/03/18 [Rx] Sulfamethoxazole/Trimethoprim [Bactrim Ds Tablet] 1 each PO BID #14 tablet 03/03 [Rx] Past Medical History - Past Health History Medical/Surgical History: Denies Medical/Surgical History HEENT History: Reports: Impaired Vision Cardiovascular History: Reports: CAD, High Cholesterol, Hypertension, Stents Other Cardiovascular History: hx of MRSA Respiratory History: Reports: Bronchitis, Recurrent, COPD Gastrointestinal History: Reports: Diverticulosis, GERD, Other (See Below) Other Gastrointestinal History: Diverticulitis Genitourinary History: Reports: Urinary Incontinence Other Genitourinary History: 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: Musculoskeletal History: Reports: None Other Musculoskeletal History: 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, fracture left ankle, fractured left middle finger Neurological History: Reports: None Other Neuro History: AVM right temporal Psychiatric History: Reports: Anxiety Endocrine/Metabolic History: Reports: Other (See Below) Other Endocrine/Metabolic History: borderline diabetic Hematologic History: Reports: Anemia, Iron Deficiency Immunologic History: Reports: None Oncologic (Cancer) History: Reports: None Dermatologic History: Reports: None - Infectious Disease History Infectious Disease History: Reports: Chicken Pox, Measles - Past Surgical History Head Surgeries/Procedures: Reports: None HEENT Surgical History: Reports: None, Other (See Below) Other HEENT Surgeries/Procedures: "Bleeding in the eye" Cardiovascular Surgical History: Reports: Carotid Endarterectomy Respiratory Surgical History: Reports: None GI Surgical History: Reports: Appendectomy, Colostomy Female Surgical History: Reports: None Endocrine Surgical History: Reports: None Neurological Surgical History: Reports: None Musculoskeletal Surgical History: Reports: None Dermatological Surgical History: Reports: Plastic Surgical Reconstruction/Repair Social & Family History - Family History Family Medical History: Noncontributory HEENT: Reports: Glaucoma : Reports: Other (See Below) Other Family History: prostate cancer Neurological: Reports: CVA Endocrine/Metabolic: Reports: Diabetes, Type I Oncologic: Reports: Skin - Tobacco Use Smoking Status *Q: Never Smoker - Caffeine Use Caffeine Use: Reports: Coffee Caffeine Use Comment: 1 cup daily - Recreational Drug Use Recreational Drug Use: No - Living Situation & Occupation Occupation: Employed Review of Systems - Review of Systems Review Of Systems: ROS reveals no pertinent complaints other than HPI. ED EXAM, GENERAL - Physical Exam Exam: See Below (see dictation) Course - Vital Signs Last Recorded V/S: Last Vital Signs Temp 36.3 C 03/03/18 20:49 Pulse 66 03/03/18 20:49 Resp 18 03/03/18 20:49 BP 128/68 03/03/18 20:49 Pulse Ox 94 L 03/03/18 20:49 - Orders/Labs/Meds Orders: Active Orders 24 hr Category Date Time Status COMPREHENSIVE METABOLIC PN,CMP [CHEM] Stat Lab 03/03/18 20:43 Received Sodium Chloride 0.9% [Saline Flush] Med 03/03/18 20:28 Active 10 ml FLUSH ASDIRECTED PRN Sodium Chloride 0.9% [Saline Flush] Med 03/03/18 20:28 Active 2.5 ml FLUSH ASDIRECTED PRN Saline Lock Insert [OM.PC] Stat Oth 03/03/18 20:28 Ordered Medication Orders Sodium Chloride (Saline Flush) 10 ml FLUSH ASDIRECTED PRN PRN Reason: Keep Vein Open Sodium Chloride (Saline Flush) 2.5 ml FLUSH ASDIRECTED PRN PRN Reason: Keep Vein Open Labs: Laboratory Tests 03/03/18 Range/Units 20:43 WBC 9.36 (4.0-11.0) K/uL RBC 5.58 (4.30-5.90) M/uL Hgb 17.0 H (12.0-16.0) g/dL Hct 51.2 H (36.0-46.0) % MCV 91.8 (80.0-98.0) fL MCH 30.5 (27.0-32.0) pg MCHC 33.2 (31.0-37.0) g/dL RDW Std Deviation 47.4 (28.0-62.0) fl RDW Coeff of [place] 14 (11.0-15.0) % Plt Count 193 (150-400) K/uL MPV 10.70 (7.40-12.00) fL Neut % (Auto) 66.8 (48.0-80.0) % Lymph % (Auto) 22.3 (16.0-40.0) % [place] % (Auto) 9.2 (0.0-15.0) % Eos % (Auto) 1.5 (0.0-7.0) % Baso % (Auto) 0.2 (0.0-1.5) % Neut # (Auto) 6.3 H (1.4-5.7) K/uL Lymph # (Auto) 2.1 (0.6-2.4) K/uL [place] # (Auto) 0.9 H (0.0-0.8) K/uL Eos # (Auto) 0.1 (0.0-0.7) K/uL Baso # (Auto) 0.0 (0.0-0.1) K/uL Nucleated RBC % 0.0 /100WBC Nucleated RBCs # 0 K/uL Meds: Medications Generic Name Dose Route Start Last Admin Trade Name Eri PRN Reason Stop Dose Admin Sodium Chloride 10 ml 03/03/18 20:28 Saline Flush FLUSH ASDIRECTED PRN Keep Vein Open Sodium Chloride 2.5 ml 03/03/18 20:28 Saline Flush FLUSH ASDIRECTED PRN Keep Vein Open Discontinued Medications Generic Name Dose Route Start Last Admin Trade Name Freq PRN Reason Stop Dose Admin Clindamycin Phosphate 300 mg/ 50 mls @ 150 mls/hr 03/03/18 20:24 03/03/18 20: 48 Premix IV 03/03/18 20:43 150 mls/hr ONETIME ONE Administration Departure - Departure Time of Disposition: 21:06 Disposition: Home, Self-Care 01 Condition: Good Clinical Impression: Cellulitis of right foot Cellulitis Qualifiers: Site of cellulitis: extremity Site of cellulitis of extremity: upper extremity Laterality: right Qualified Code(s): L03.113 - Cellulitis of right upper limb - Discharge Information Prescriptions: Clindamycin HCl 300 mg PO Q6HR #28 capsule Sulfamethoxazole/Trimethoprim [Bactrim Ds Tablet] 1 each PO BID #14 tablet Instructions: Cellulitis, Adult Referrals: PCP,None [Primary Care Provider] - Forms: ED Department Discharge Additional Instructions: The following information is given to patients seen in the emergency department who are being discharged to home. This information is to outline your options for follow-up care. We provide all patients seen in our emergency department with a follow-up referral. The need for follow-up, as well as the timing and circumstances, are variable depending upon the specifics of your emergency department visit. If you don't have a primary care physician on staff, we will provide you with a referral. We always advise you to contact your personal physician following an emergency department visit to inform them of the circumstance of the visit and for follow-up with them and/or the need for any referrals to a consulting specialist. The emergency department will also refer you to a specialist when appropriate. This referral assures that you have the opportunity for followup care with a specialist. All of these measure are taken in an effort to provide you with optimal care, which includes your followup. Under all circumstances we always encourage you to contact your private physician who remains a resource for coordinating your care. When calling for followup care, please make the office aware that this follow-up is from your recent emergency room visit. If for any reason you are refused follow-up, please contact the [facility] emergency department at and asked to speak to the emergency department charge nurse. Discharge Bactrim DS Oral clindamycin Follow-up with your primary care in 2 -3 days Return to emergency room as directed - My Orders Last 24 Hours: My Active Orders 03/03/18 20:28 Sodium Chloride 0.9% [Saline Flush] 10 ml FLUSH ASDIRECTED PRN Sodium Chloride 0.9% [Saline Flush] 2.5 ml FLUSH ASDIRECTED PRN Saline Lock Insert [OM.PC] Stat 03/03/18 20:43 COMPREHENSIVE METABOLIC PN,CMP [CHEM] Stat - Assessment/Plan Last 24 Hours: My Active Orders 03/03/18 20:28 Sodium Chloride 0.9% [Saline Flush] 10 ml FLUSH ASDIRECTED PRN Sodium Chloride 0.9% [Saline Flush] 2.5 ml FLUSH ASDIRECTED PRN Saline Lock Insert [OM.PC] Stat 03/03/18 20:43 COMPREHENSIVE METABOLIC PN,CMP [CHEM] Stat
[2018-03-03] MEDS ORDERED: Clindamycin Phosphate in D5W 300 MG in Premix Bag 1 BAG IV ONE ×2 (20:24)
[2018-03-03] MEDS ORDERED: Sodium Chloride 0.9% 10 ML Syringe FLUSH PRN (20:28)
[2018-03-03] MEDS ORDERED: Sodium Chloride 0.9% 2.5 ML Syringe FLUSH PRN (20:28)
[2018-03-03 20:50] VITALS: BP 128/68
[2018-03-03 21:30] LABS: CHLORIDE,CL 102 mmol/L (98-107); SODIUM,NA 140 mmol/L (136-145)
== END 2018-03-03 21:20 | disposition home or self-care (01) ==
LOC: MW.ED 18:06
DX: L03.115 Cellulitis of right lower limb (principal); Z88.1 Allergy status to other antibiotic agents; Z88.0 Allergy status to penicillin; Z88.5 Allergy status to narcotic agent; Z91.040 Latex allergy status; Z79.899 Other long term (current) drug therapy; I10 Essential (primary) hypertension
CPT/HCPCS: 80053; 85025; 96365; 99283; J3490

== ENCOUNTER 2018-11-06 00:24 | Emergency (ER) | payer BC, MEDICARE ==
--- NOTE | 2018-11-06 00:49 | EDM.PDOC ---
ED HPI GENERAL MEDICAL PROBLEM - General Chief Complaint: Chest Pain Stated Complaint: CHEST PAIN Time Seen by Provider: 11/06/18 00:46 - History of Present Illness INITIAL COMMENTS - FREE TEXT/NARRATIVE: HISTORY AND PHYSICAL: History of present illness: Patient is a 63-year-old female history of coronary artery disease who states she's had 14 stents prior presents with concern of chest pain this vaguely described without associated shortness breath nausea vomiting palpitations fever chills Review of systems: As per history of present illness and below otherwise all systems reviewed and negative. Past medical history: As per history of present illness and as reviewed below otherwise noncontributory. Surgical history: As per history of present illness and as reviewed below otherwise noncontributory. Social history: No reported history of drug or alcohol abuse. Family history: As per history of present illness and as reviewed below otherwise noncontributory. Physical exam: HEENT: Atraumatic, normocephalic, pupils reactive, negative for conjunctival pallor or scleral icterus, mucous membranes moist, throat clear, neck supple, nontender, trachea midline. Lungs: Clear to auscultation, breath sounds equal bilaterally, chest nontender. Heart: S1S2, regular, negative for clicks, rubs, or JVD. Abdomen: Soft, nondistended, nontender. Negative for masses or hepatosplenomegaly. Negative for costovertebral tenderness. Pelvis: Stable nontender. Genitourinary: Deferred. Rectal: Deferred. Extremities: Atraumatic, negative for cords or calf pain. Neurovascular unremarkable. Neuro: Awake, alert, oriented. Cranial nerves II through XII unremarkable. Cerebellum unremarkable. Motor and sensory unremarkable throughout. Exam nonfocal. Diagnostics: CBC CMP troponin PT/INR chest x-ray EKG Therapeutics: IV O2 monitor Impression: #1 chest pain Definitive disposition and diagnosis as appropriate pending reevaluation and review of above. Chest Pain Score (Numeric/FACES): 9 - Related Data Allergies Allergy/AdvReac Type Severity Reaction Status Date / Time levofloxacin [From Levaquin] Allergy Mild Rash Verified 03/03/18 18:20 Latex, Natural Rubber Allergy Rash Verified 03/03/18 18:20 penicillin Allergy Airway Verified 03/03/18 18:20 Tightness morphin Allergy Severe Hives Uncoded 03/03/18 18:20 Home Meds: Home Meds ALPRAZolam [Alprazolam] 0.5 tab PO DAILY PRN 01/14/18 [History] Metoprolol Tartrate 25 mg PO DAILY 01/14/18 [History] Prasugrel HCl [Effient] 10 mg PO DAILY 01/14/18 [History] Rosuvastatin [Crestor] 40 mg PO DAILY 01/14/18 [History] Budesonide/Formoterol Fumarate [Symbicort 160-4.5 Mcg Inhaler] 2 puff IH BID PRN 01/16/18 [History] Tiotropium [place] [Spiriva Respimat] 2.5 mcg IH DAILY PRN 01/16/18 [History] Aspirin 1 tab PO DAILY 11/06/18 [History] Nitroglycerin [Nitrostat] 0.4 mg SL ASDIRECTED 11/06/18 [History] Past Medical History - Past Health History Medical/Surgical History: Denies Medical/Surgical History HEENT History: Reports: Impaired Vision Cardiovascular History: Reports: CAD, High Cholesterol, Hypertension, [place], Stents Other Cardiovascular History: hx of MRSA Respiratory History: Reports: Bronchitis, Recurrent, COPD Gastrointestinal History: Reports: Diverticulosis, GERD, Other (See Below) Other Gastrointestinal History: Diverticulitis Genitourinary History: Reports: Urinary Incontinence Other Genitourinary History: bladder sling 2009 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: Musculoskeletal History: Reports: None Other Musculoskeletal History: 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, fracture left ankle, fractured left middle finger Neurological History: Reports: None Other Neuro History: AVM right temporal Psychiatric History: Reports: Anxiety Endocrine/Metabolic History: Reports: Other (See Below) Other Endocrine/Metabolic History: borderline diabetic Hematologic History: Reports: Anemia, Anticoagulation Therapy, Iron Deficiency Immunologic History: Reports: None Oncologic (Cancer) History: Reports: None Dermatologic History: Reports: None - Infectious Disease History Infectious Disease History: Reports: Chicken Pox, Measles, MRSA - Past Surgical History Head Surgeries/Procedures: Reports: None HEENT Surgical History: Reports: None, Other (See Below) Other HEENT Surgeries/Procedures: "Bleeding in the eye" Cardiovascular Surgical History: Reports: Carotid Endarterectomy Respiratory Surgical History: Reports: None GI Surgical History: Reports: Appendectomy, Colostomy Female Surgical History: Reports: Hysterectomy Endocrine Surgical History: Reports: None Neurological Surgical History: Reports: None Musculoskeletal Surgical History: Reports: None Dermatological Surgical History: Reports: Plastic Surgical Reconstruction/Repair Social & Family History - Family History Family Medical History: Noncontributory HEENT: Reports: Glaucoma : Reports: Other (See Below) Other Family History: prostate cancer Neurological: Reports: CVA Endocrine/Metabolic: Reports: Diabetes, Type I Oncologic: Reports: Skin - Tobacco Use Smoking Status *Q: Former Smoker Used Tobacco, but Quit: Yes Month/Year Tobacco Last Used: 2011 - Caffeine Use Caffeine Use: Reports: Coffee Caffeine Use Comment: 1 cup daily - Recreational Drug Use Recreational Drug Use: No - Living Situation & Occupation Occupation: Employed ED ROS GENERAL - Review of Systems Review Of Systems: ROS reveals no pertinent complaints other than HPI. 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 DIRECTED Care 11/06/18 00:35 Active EKG Documentation Completion [RC] STAT Care 11/06/18 00:35 Active Labs: Laboratory Tests 11/06/18 11/06/18 11/06/18 Range/Units 01:02 01:02 01:02 WBC 7.97 (4.0-11.0) K/uL RBC 5.89 (4.30-5.90) M/uL Hgb 18.1 H (12.0-16.0) g/dL Hct 53.5 H (36.0-46.0) % MCV 90.8 (80.0-98.0) fL MCH 30.7 (27.0-32.0) pg MCHC 33.8 (31.0-37.0) g/dL RDW Std Deviation 47.9 (28.0-62.0) fl RDW Coeff of [place] 15 (11.0-15.0) % Plt Count 152 (150-400) K/uL MPV 10.90 (7.40-12.00) fL Neut % (Auto) 63.9 (48.0-80.0) % Lymph % (Auto) 23.6 (16.0-40.0) % [place] % (Auto) 9.8 (0.0-15.0) % Eos % (Auto) 2.4 (0.0-7.0) % Baso % (Auto) 0.3 (0.0-1.5) % Neut # (Auto) 5.1 (1.4-5.7) K/uL Lymph # (Auto) 1.9 (0.6-2.4) K/uL [place] # (Auto) 0.8 (0.0-0.8) K/uL Eos # (Auto) 0.2 (0.0-0.7) K/uL Baso # (Auto) 0.0 (0.0-0.1) K/uL INR 1.03 Sodium 140 (136-145) mmol/L Potassium 3.4 L (3.5-5.1) mmol/L Chloride 102 (98-107) mmol/L Carbon Dioxide 28.1 (21.0-32.0) mmol/L BUN 16 (7.0-18.0) mg/dL Creatinine 0.6 (0.6-1.0) mg/dL Est Cr Clr Drug Dosing 79.39 mL/min Estimated GFR (MDRD) > 60.0 ml/min Glucose 104 (74-106) mg/dL Calcium 9.1 (8.5-10.1) mg/dL Troponin I < 0.050 (0.000-0.056) ng/mL Departure - Departure Time of Disposition: 02:04 Disposition: Home, Self-Care 01 Condition: Good Clinical Impression: Chest pain Qualifiers: Chest pain type: unspecified Qualified Code(s): R07.9 - Chest pain, unspecified HTN (hypertension) Qualifiers: Hypertension type: essential hypertension Qualified Code(s): I10 - Essential ( primary) hypertension - Discharge Information Forms: ED Department Discharge Additional Instructions: The following information is given to patients seen in the emergency department who are being discharged to home. This information is to outline your options for follow-up care. We provide all patients seen in our emergency department with a follow-up referral. The need for follow-up, as well as the timing and circumstances, are variable depending upon the specifics of your emergency department visit. If you don't have a primary care physician on staff, we will provide you with a referral. We always advise you to contact your personal physician following an emergency department visit to inform them of the circumstance of the visit and for follow-up with them and/or the need for any referrals to a consulting specialist. The emergency department will also refer you to a specialist when appropriate. This referral assures that you have the opportunity for followup care with a specialist. All of these measure are taken in an effort to provide you with optimal care, which includes your followup. Under all circumstances we always encourage you to contact your private physician who remains a resource for coordinating your care. When calling for followup care, please make the office aware that this follow-up is from your recent emergency room visit. If for any reason you are refused follow-up, please contact the [facility] emergency department at and asked to speak to the emergency department charge nurse. Continue current medications follow with pump and blower operator as discussed return as needed as discussed - My Orders Last 24 Hours: My Active Orders 11/06/18 00:35 Cardiac Monitoring [RC] . DIRECTED EKG Documentation Completion [RC] STAT - Assessment/Plan Last 24 Hours: My Active Orders 11/06/18 00:35 Cardiac Monitoring [RC] . DIRECTED EKG Documentation Completion [RC] STAT
--- NOTE | 2018-11-06 01:01 | CR ---
INDICATION: Chest pain TECHNIQUE: Chest 1 views COMPARISON: January 14, 2018 FINDINGS: Cardiovascular and mediastinum: Heart size and vasculature are normal in caliber and appearance. Lungs and pleural spaces: Lungs are clear. No sign of infiltrate or mass. No sign of pleural effusion. No pneumothorax. Bones and soft tissues: No significant findings. IMPRESSION: No acute findings and no significant changes from the prior exam. Dictated by Stewart Al MD @ Nov 06 2018 12:59AM Signed by Dr. Stewart Al @ Nov 06 2018 1:00AM
[2018-11-06 01:29] LABS: CHLORIDE,CL 102 mmol/L (98-107); SODIUM,NA 140 mmol/L (136-145)
[2018-11-06 02:11] VITALS: BP 150/74
== END 2018-11-06 02:15 | disposition home or self-care (01) ==
LOC: MW.ED 00:24
DX: R07.9 Chest pain, unspecified (principal); I10 Essential (primary) hypertension; I25.10 Atherosclerotic heart disease of native coronary artery without angina pectoris; I25.2 Old myocardial infarction; Z95.5 Presence of coronary angioplasty implant and graft; Z90.49 Acquired absence of other specified parts of digestive tract; Z90.710 Acquired absence of both cervix and uterus; Z79.82 Long term (current) use of aspirin; Z79.899 Other long term (current) drug therapy; Z88.5 Allergy status to narcotic agent; Z88.0 Allergy status to penicillin; Z91.040 Latex allergy status; Z88.1 Allergy status to other antibiotic agents
CPT/HCPCS: 71045; 71045-26; 80048; 84484; 85025; 85610; 93005; 99283; 99285-25

== ENCOUNTER 2018-12-15 09:22 | Emergency (ER) | payer BC, MEDICARE ==
[2018-12-15] MEDS ORDERED: Sodium Chloride 0.9% 10 ML Syringe FLUSH PRN (09:24)
[2018-12-15] MEDS ORDERED: Sodium Chloride 0.9% 2.5 ML Syringe FLUSH PRN (09:24)
[2018-12-15] MEDS ORDERED: Ondansetron 4 MG/2 ML SDV IVPUSH ONE (09:28)
[2018-12-15] MEDS ORDERED: Ondansetron 4 MG/2 ML SDV ONE (09:30)
[2018-12-15 09:38] VITALS: BP 154/92
--- NOTE | 2018-12-15 10:08 | CR ---
EXAMINATION: Portable chest radiograph. HISTORY: Shortness of breath. FINDINGS: The trachea is midline. The cardiomediastinal silhouette is within normal limits. No pulmonary infiltrates, effusions or pneumothorax. Osseous structures appear unremarkable. IMPRESSION: No acute cardiopulmonary process.
--- NOTE | 2018-12-15 10:09 | EDM.PDOC ---
ED HPI GENERAL MEDICAL PROBLEM - General Chief Complaint: Chest Pain Stated Complaint: chest pain Time Seen by Provider: 12/15/18 09:23 - History of Present Illness INITIAL COMMENTS - FREE TEXT/NARRATIVE: HISTORY AND PHYSICAL: History of present illness: Patient 63-year-old female history coronary disease was been seen by her nuclear weapons specialist recently following a observation admission for an episode of chest pain. She had a thorough evaluation I did discuss case with cardiology who presented to the emergency department today and reevaluated patient cardiology feels this is not likely reflective of cardiac ischemia and patient is cleared for discharge in his opinion with follow-up. Review of systems: As per history of present illness and below otherwise all systems reviewed and negative. Past medical history: As per history of present illness and as reviewed below otherwise noncontributory. Surgical history: As per history of present illness and as reviewed below otherwise noncontributory. Social history: No reported history of drug or alcohol abuse. Family history: As per history of present illness and as reviewed below otherwise noncontributory. Physical exam: HEENT: Atraumatic, normocephalic, pupils reactive, negative for conjunctival pallor or scleral icterus, mucous membranes moist, throat clear, neck supple, nontender, trachea midline. Lungs: Clear to auscultation, breath sounds equal bilaterally, chest nontender. Heart: S1S2, regular, negative for clicks, rubs, or JVD. Abdomen: Soft, nondistended, nontender. Negative for masses or hepatosplenomegaly. Negative for costovertebral tenderness. Pelvis: Stable nontender. Genitourinary: Deferred. Rectal: Deferred. Extremities: Atraumatic, negative for cords or calf pain. Neurovascular unremarkable. Neuro: Awake, alert, oriented. Cranial nerves II through XII unremarkable. Cerebellum unremarkable. Motor and sensory unremarkable throughout. Exam nonfocal. Diagnostics: CBC CMP troponin PT/INR chest x-ray EKG Therapeutics: IV O2 monitor Impression: #1 chest pain Definitive disposition and diagnosis as appropriate pending reevaluation and review of above. Middle Chest Pain Score (Numeric/FACES): 8 - Related Data Allergies Allergy/AdvReac Type Severity Reaction Status Date / Time levofloxacin [From Levaquin] Allergy Mild Rash Verified 12/15/18 09:33 Latex, Natural Rubber Allergy Rash Verified 12/15/18 09:33 penicillin Allergy Airway Verified 12/15/18 09:33 Tightness morphin Allergy Severe Hives Uncoded 12/15/18 09:33 Home Meds: Home Meds ALPRAZolam [Alprazolam] 0.5 tab PO DAILY PRN 01/14/18 [History] Metoprolol Tartrate 25 mg PO DAILY 01/14/18 [History] Prasugrel HCl [Effient] 10 mg PO DAILY 01/14/18 [History] Rosuvastatin [Crestor] 40 mg PO DAILY 01/14/18 [History] Budesonide/Formoterol Fumarate [Symbicort 160-4.5 Mcg Inhaler] 2 puff IH BID PRN 01/16/18 [History] Tiotropium [place] [Spiriva Respimat] 2.5 mcg IH DAILY PRN 01/16/18 [History] Aspirin 1 tab PO DAILY 11/06/18 [History] Nitroglycerin [Nitrostat] 0.4 mg SL ASDIRECTED 11/06/18 [History] Past Medical History - Past Health History Medical/Surgical History: Denies Medical/Surgical History HEENT History: Reports: Impaired Vision Cardiovascular History: Reports: CAD, High Cholesterol, Hypertension, [place], Stents Other Cardiovascular History: hx of MRSA Respiratory History: Reports: Bronchitis, Recurrent, COPD Gastrointestinal History: Reports: Diverticulosis, GERD, Other (See Below) Other Gastrointestinal History: Diverticulitis Genitourinary History: Reports: Urinary Incontinence Other Genitourinary History: 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: Musculoskeletal History: Reports: None Other Musculoskeletal History: 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, fracture left ankle, fractured left middle finger Neurological History: Reports: None Other Neuro History: AVM right temporal Psychiatric History: Reports: Anxiety Endocrine/Metabolic History: Reports: Other (See Below) Other Endocrine/Metabolic History: borderline diabetic Hematologic History: Reports: Anemia, Anticoagulation Therapy, Iron Deficiency Immunologic History: Reports: None Oncologic (Cancer) History: Reports: None Dermatologic History: Reports: None - Infectious Disease History Infectious Disease History: Reports: Chicken Pox, Measles - Past Surgical History Head Surgeries/Procedures: Reports: None HEENT Surgical History: Reports: None, Other (See Below) Other HEENT Surgeries/Procedures: "Bleeding in the eye" Cardiovascular Surgical History: Reports: Carotid Endarterectomy Respiratory Surgical History: Reports: None GI Surgical History: Reports: Appendectomy, Colostomy Female Surgical History: Reports: Hysterectomy Endocrine Surgical History: Reports: None Neurological Surgical History: Reports: None Musculoskeletal Surgical History: Reports: None Dermatological Surgical History: Reports: Plastic Surgical Reconstruction/Repair Social & Family History - Family History Family Medical History: Noncontributory HEENT: Reports: Glaucoma : Reports: Other (See Below) Other Family History: prostate cancer Neurological: Reports: CVA Endocrine/Metabolic: Reports: Diabetes, Type I Oncologic: Reports: Skin - Tobacco Use Smoking Status *Q: Never Smoker Second Hand Smoke Exposure: No - Caffeine Use Caffeine Use: Reports: Coffee Caffeine Use Comment: 1 cup daily - Recreational Drug Use Recreational Drug Use: No - Living Situation & Occupation Occupation: Employed ED ROS GENERAL - Review of Systems Review Of Systems: ROS reveals no pertinent complaints other than HPI. ED EXAM, GENERAL - Physical Exam Exam: See Below (See dictation) Course - Vital Signs Last Recorded V/S: Last Vital Signs Temp 36.4 C 12/15/18 09:34 Pulse 72 12/15/18 09:34 Resp 18 12/15/18 09:34 BP 154/92 H 12/15/18 09:34 Pulse Ox 88 L 12/15/18 09:34 - Orders/Labs/Meds Orders: Active Orders 24 hr Category Date Time Status Cardiac Monitoring [RC] . DIRECTED Care 12/15/18 09:24 Active EKG Documentation Completion [RC] STAT Care 12/15/18 09:24 Active Oxygen Therapy, ED [RC] ASDIRECTED Care 12/15/18 09:24 Active Pulse Oximetry [RC] ASDIRECTED Care 12/15/18 09:24 Active Sodium Chloride 0.9% [Saline Flush] Med 12/15/18 09:24 Active 10 ml FLUSH ASDIRECTED PRN Sodium Chloride 0.9% [Saline Flush] Med 12/15/18 09:24 Active 2.5 ml FLUSH ASDIRECTED PRN Saline Lock Insert [OM.PC] Stat Oth 12/15/18 09:24 Ordered Medication Orders Sodium Chloride (Saline Flush) 10 ml FLUSH ASDIRECTED PRN PRN Reason: Keep Vein Open Last Admin: 12/15/18 09:32 Dose: 10 ml Sodium Chloride (Saline Flush) 2.5 ml FLUSH ASDIRECTED PRN PRN Reason: Keep Vein Open Last Admin: 12/15/18 09:33 Dose: 2.5 ml Labs: Laboratory Tests 12/15/18 12/15/18 12/15/18 Range/Units 09:25 09:25 09:25 WBC 9.44 (4.0-11.0) K/uL RBC 6.17 H (4.30-5.90) M/uL Hgb 18.9 H (12.0-16.0) g/dL Hct 57.9 H (36.0-46.0) % MCV 93.8 (80.0-98.0) fL MCH 30.6 (27.0-32.0) pg MCHC 32.6 (31.0-37.0) g/dL RDW Std Deviation 49.4 (28.0-62.0) fl RDW Coeff of [place] 15 (11.0-15.0) % Plt Count 185 (150-400) K/uL MPV 10.90 (7.40-12.00) fL Neut % (Auto) 66.1 (48.0-80.0) % Lymph % (Auto) 20.3 (16.0-40.0) % [place] % (Auto) 11.5 (0.0-15.0) % Eos % (Auto) 1.9 (0.0-7.0) % Baso % (Auto) 0.2 (0.0-1.5) % Neut # (Auto) 6.2 H (1.4-5.7) K/uL Lymph # (Auto) 1.9 (0.6-2.4) K/uL [place] # (Auto) 1.1 H (0.0-0.8) K/uL Eos # (Auto) 0.2 (0.0-0.7) K/uL Baso # (Auto) 0.0 (0.0-0.1) K/uL Nucleated RBC % 0.0 /100WBC Nucleated RBCs # 0 K/uL INR 1.03 Sodium 140 (136-145) mmol/L Potassium 4.3 (3.5-5.1) mmol/L Chloride 104 (98-107) mmol/L Carbon Dioxide 31.0 (21.0-32.0) mmol/L BUN 9 (7.0-18.0) mg/dL Creatinine 0.6 (0.6-1.0) mg/dL Est Cr Clr Drug Dosing 79.39 mL/min Estimated GFR (MDRD) > 60.0 ml/min Glucose 104 (74-106) mg/dL Calcium 9.2 (8.5-10.1) mg/dL Total Bilirubin 0.4 (0.2-1.0) mg/dL AST 27 (15-37) IU/L ALT 29 (14-63) IU/L Alkaline Phosphatase 117 H (46-116) U/L Troponin I < 0.050 (0.000-0.056) ng/mL Total Protein 7.6 (6.4-8.2) g/dL Albumin 3.7 (3.4-5.0) g/dL Globulin 3.9 (2.6-4.0) g/dL Albumin/Globulin Ratio 0.9 (0.9-1.6) Meds: Medications Generic Name Dose Route Start Last Admin Trade Name Eri PRN Reason Stop Dose Admin Sodium Chloride 10 ml 12/15/18 09:24 12/15/18 09:32 Saline Flush FLUSH 10 ml ASDIRECTED PRN Administration Keep Vein Open Sodium Chloride 2.5 ml 12/15/18 09:24 12/15/18 09:33 Saline Flush FLUSH 2.5 ml ASDIRECTED PRN Administration Keep Vein Open Discontinued Medications Generic Name Dose Route Start Last Admin Trade Name Eri PRN Reason Stop Dose Admin Ondansetron HCl 4 mg 12/15/18 09:28 12/15/18 09:32 Zofran IVPUSH 12/15/18 09:29 4 mg ONETIME ONE Administration Ondansetron HCl Confirm 12/15/18 09:30 12/15/18 09:42 Zofran Administered 12/15/18 09:31 Not Given Dose 4 mg .ROUTE .STK-MED ONE Departure - Departure Time of Disposition: 10:28 Disposition: Home, Self-Care 01 Condition: Good Clinical Impression: Chest pain Qualifiers: Chest pain type: unspecified Qualified Code(s): R07.9 - Chest pain, unspecified - Discharge Information Instructions: Nonspecific Chest Pain, [id number] Referrals: PCP,None [Primary Care Provider] - Forms: ED Department Discharge Additional Instructions: The following information is given to patients seen in the emergency department who are being discharged to home. This information is to outline your options for follow-up care. We provide all patients seen in our emergency department with a follow-up referral. The need for follow-up, as well as the timing and circumstances, are variable depending upon the specifics of your emergency department visit. If you don't have a primary care physician on staff, we will provide you with a referral. We always advise you to contact your personal physician following an emergency department visit to inform them of the circumstance of the visit and for follow-up with them and/or the need for any referrals to a consulting specialist. The emergency department will also refer you to a specialist when appropriate. This referral assures that you have the opportunity for followup care with a specialist. All of these measure are taken in an effort to provide you with optimal care, which includes your followup. Under all circumstances we always encourage you to contact your private physician who remains a resource for coordinating your care. When calling for followup care, please make the office aware that this follow-up is from your recent emergency room visit. If for any reason you are refused follow-up, please contact the [facility] emergency department at and asked to speak to the emergency department charge nurse. Follow-up primary medical doctor and cardiology as discussed continue current medications return as needed as discussed - My Orders Last 24 Hours: My Active Orders 12/15/18 09:24 Cardiac Monitoring [RC] . DIRECTED EKG Documentation Completion [RC] STAT Oxygen Therapy, ED [RC] ASDIRECTED Pulse Oximetry [RC] ASDIRECTED Sodium Chloride 0.9% [Saline Flush] 10 ml FLUSH ASDIRECTED PRN Sodium Chloride 0.9% [Saline Flush] 2.5 ml FLUSH ASDIRECTED PRN Saline Lock Insert [OM.PC] Stat - Assessment/Plan Last 24 Hours: My Active Orders 12/15/18 09:24 Cardiac Monitoring [RC] . DIRECTED EKG Documentation Completion [RC] STAT Oxygen Therapy, ED [RC] ASDIRECTED Pulse Oximetry [RC] ASDIRECTED Sodium Chloride 0.9% [Saline Flush] 10 ml FLUSH ASDIRECTED PRN Sodium Chloride 0.9% [Saline Flush] 2.5 ml FLUSH ASDIRECTED PRN Saline Lock Insert [OM.PC] Stat
[2018-12-15 10:10] LABS: CHLORIDE,CL 104 mmol/L (98-107); SODIUM,NA 140 mmol/L (136-145)
== END 2018-12-15 10:38 | disposition home or self-care (01) ==
LOC: MW.ED 09:22
DX: R07.9 Chest pain, unspecified (principal); I10 Essential (primary) hypertension; I25.10 Atherosclerotic heart disease of native coronary artery without angina pectoris; E78.00 Pure hypercholesterolemia, unspecified; K21.9 Gastro-esophageal reflux disease without esophagitis; J44.9 Chronic obstructive pulmonary disease, unspecified; F41.9 Anxiety disorder, unspecified; Z79.01 Long term (current) use of anticoagulants; Z88.1 Allergy status to other antibiotic agents; Z91.040 Latex allergy status; Z88.0 Allergy status to penicillin; Z88.5 Allergy status to narcotic agent; Z79.899 Other long term (current) drug therapy; Z79.82 Long term (current) use of aspirin
CPT/HCPCS: 36415; 71045; 80053; 84484; 85025; 85610; 93005; 96374; 99285; J2405; 99283